=== PATIENT | female | born 1990 | race Caucasian/White ===

== ENCOUNTER 2019-11-18 08:20 | Emergency (ER) | payer OTHER, SELFPAY ==
--- NOTE | 2019-11-18 08:26 | ED.DENTAL ---
HPI - Dental/Oral General Chief complaint: Dental/Oral Stated complaint: dental pain Time Seen by Provider: 11/18/19 08:26 Source: patient Mode of arrival: ambulatory Limitations: no limitations History of Present Illness MD Complaint: tooth pain Teeth map: 1. Duration: constant Severity: moderate Exacerbating factors: nothing Context: history of dental caries, poor dental care and other (known crack in tooth) Associated symptoms: gum swelling Treatment prior to arrival: none Related Data Previous Rx's Medication Instructions Recorded amoxicillin 500 mg PO Q8H 7 Days #21 cap 11/18/19 hydrocodone-acetaminophen 1 tab PO Q6H PRN #10 tab 11/18/19 Allergies Allergy/AdvReac Type Severity Reaction Status Date / Time AZO CRANBERRY URINARY TRACT Allergy Severe THROAT Uncoded 10/23/19 15:58 HEALTH SWELLING pt states no known food & Allergy Unknown Unknown Uncoded 11/18/19 08:33 medi Review of Systems Review of Systems: Constitutional : No Fever, No Chills ENT/Mouth : No swallowing difficulty, no change in voice, positive dental pain, positive jaw pain, positive facial swelling Eyes: No Eye Pain, No Swelling Cardiovascular : No Chest Pain, No SOB Respiratory : No Cough, No Sputum Gastrointestinal : No Nausea, No Vomiting, No Diarrhea Genitourinary : No Dysuria Musculoskeletal : No Myalgias Skin : No rash Neuro : No Weakness, No Numbness, No Headache PMFSH Past Medical History Attestation statement: The following information was validated with the patient. Medical History No known health problems Social History Social History (Updated 11/18/19 @ 08:43 by Sarita Gonzalez DO) Alcohol intake: unknown Smoking Status: Never smoker Use of substances other than those prescribed or required for medical reasons: Unknown Advance Directives: No Advance Directives Information Provided: Yes Physical Exam Vital Signs: Vital Signs: Vital Signs Temp Pulse Resp BP Pulse Ox 11/18/19 08:30 98.6 F 98 18 137/87 97 Body Mass Index 36.1 Appearance: Alert. Oriented X3. No acute distress. Eyes: Pupils equal, round and reactive to light. ENT: Pharynx normal. right lower molar cracked with partial filling, small fluctuant area on near gums, has no submandibular or sublingual swelling, no airway issues Neck: Normal inspection. Neck supple. CVS: Normal heart rate and rhythm. Pulses normal. Respiratory: No respiratory distress. Breath sounds normal. Abdomen: Soft and nontender. Skin: Skin warm and dry. Normal skin color. Normal skin turgor. Extremities: No lower extremity edema. No calf ttp Neuro: Oriented X 3. No motor deficit. No sensory deficit. MDM - Dental/Oral MDM Narrative Medical decision making narrative: 29 yo female with cracked lower molar - small fluctuant area, no concern for deeper infection, will refer to dentist and start on antibiotics and pain medications Discharge Plan Discharge Clinical Impression: Dental caries, Dental abscess Patient Disposition: Home, Self-Care Instructions: Dental Abscess (ED) Prescriptions: New hydrocodone-acetaminophen 5-325 mg tablet 1 tab PO Q6H PRN (Reason: pain) Qty: 10 RF: 0 amoxicillin 500 mg capsule 500 mg PO Q8H 7 Days Qty: 21 RF: 0 Referrals: Jody Ly MD [Primary Care Provider] - 2 days (if not better you should also see your dentist) Stand Alone Forms: Work/School Release
[2019-11-18 08:30] VITALS: BP 137/87; PULSE 98; RESP 18; TEMP 37; O2SAT 97; BMI 36.1
[2019-11-18] MEDS: HYDROcodone Bit/Acetam 5/325 TABLET 1 TAB PO (08:43)
[2019-11-18] MEDS: Amoxicillin 500 MG CAPSULE PO (08:44)
== END 2019-11-18 08:49 | disposition home or self-care (01) ==
PROVIDERS: Emergency Provider Emergency Medicine; PCP Internal Medicine
DX: K02.9 Dental caries, unspecified (principal); K04.7 Periapical abscess without sinus
CPT/HCPCS: 99283; 99284

== ENCOUNTER 2019-11-20 00:44 | Emergency (ER) | payer OTHER, SELFPAY ==
[2019-11-20 00:48] VITALS: BP 129/79; PULSE 77; RESP 16; TEMP 37.8; O2SAT 98; BMI 36.1
--- NOTE | 2019-11-20 01:18 | PC.NURSE ---
MD at bedside applying temporary filling.
--- NOTE | 2019-11-20 01:23 | ED.DENTAL ---
HPI - Dental/Oral General Chief complaint: Dental/Oral Stated complaint: DENTAL PAIN Time Seen by Provider: 11/20/19 01:22 Source: patient Mode of arrival: ambulatory Limitations: no limitations History of Present Illness HPI Narrative: patient with fracture tooth with deep cavity right lower 1st molar for last 1 week seen here before giving the pain medication antibiotic seen the dentist plan to get the root canal done comes here for increased pain MD Complaint: tooth pain Location: Tooth # (30) Related Data Previous Rx's Medication Instructions Recorded amoxicillin 500 mg PO Q8H 7 Days #21 cap 11/18/19 hydrocodone-acetaminophen 1 tab PO Q6H PRN #10 tab 11/18/19 oxycodone 5 mg PO Q6H PRN #20 tab 11/20/19 Allergies Allergy/AdvReac Type Severity Reaction Status Date / Time AZO CRANBERRY URINARY TRACT Allergy Severe THROAT Uncoded 10/23/19 15:58 HEALTH SWELLING pt states no known food & Allergy Unknown Unknown Uncoded 11/18/19 08:33 medi Review of Systems Review of Systems: REVIEW OF SYSTEMS: Pertinent positives and negatives are stated above in the history. GEN: no fevers, chills, fatigue HEENT: no nasal congestion, sore throat, ear pain NEURO: no headache, dizziness, focal weakness PULM: no cough, shortness of breath CV: no chest pain, palpitations, LE edema ABD: no abdominal pain, nausea, vomiting, diarrhea : no dysuria, urgency, frequency SKIN: no rash ROS otherwise negative x 10 PMFSH Past Medical History Medical History No known health problems Surgical History History of cholecystectomy History of tubal ligation Social History Social History Alcohol intake: unknown Smoking Status: Never smoker Advance Directives: No Advance Directives Information Provided: No Physical Exam Vital Signs: Vital Signs: Vital Signs Temp Pulse Resp BP Pulse Ox 11/20/19 01:37 76 16 128/83 11/20/19 00:48 100.0 F 77 16 129/79 98 Body Mass Index 36.1 Appearance: Alert. Oriented X3. No acute distress. Eyes: Pupils equal, round and reactive to light. ENT: Pharynx normal. deep cavity right 1st lower molar sensitive to touch no soft tissue swelling Neck: Normal inspection. Neck supple. CVS: Normal heart rate and rhythm. Pulses normal. Respiratory: No respiratory distress. Breath sounds normal. Abdomen: Soft and nontender. Skin: Skin warm and dry. Normal skin color. Normal skin turgor. Extremities: No lower extremity edema. Good range of movement Neuro: Oriented X 3. No motor deficit. No sensory deficit. Course Course Course Narrative: temporary dental filling was done using tempax powder with partial relief Discharge Plan Discharge Clinical Impression: Dental caries Patient Disposition: Home, Self-Care Instructions: Toothache (ED) Additional Instructions: take antibiotic and pain medicine as prescribed follow-up with dentist do not eat from the right side Prescriptions: New oxycodone 5 mg tablet 5 mg PO Q6H PRN (Reason: pain) Qty: 20 RF: 0 No Action hydrocodone-acetaminophen 5-325 mg tablet 1 tab PO Q6H PRN (Reason: pain) Qty: 10 RF: 0 amoxicillin 500 mg capsule 500 mg PO Q8H 7 Days Qty: 21 RF: 0
[2019-11-20] MEDS: Ketorolac Tromethamine 60 MG/2 ML VIAL IM (01:34)
--- NOTE | 2019-11-20 01:36 | PC.NURSE ---
Pt medicated with Toradol for 10/10 pain to right lower jaw. VSS. Pt provided with DC paperwork.
[2019-11-20 01:37] VITALS: BP 128/83; PULSE 76; RESP 16
--- NOTE | 2019-11-20 01:41 | PC.NURSE ---
Pt medicated with Toradol per EMAR and provided with hot packs per request.
== END 2019-11-20 01:43 | disposition home or self-care (01) ==
PROVIDERS: Emergency Provider Internal Medicine; PCP Internal Medicine
DX: K02.9 Dental caries, unspecified (principal); K08.89 Other specified disorders of teeth and supporting structures
CPT/HCPCS: 96372; 99283; 99284; J1885

== ENCOUNTER 2020-03-10 16:30 | Outpatient (REF) | payer OTHER, SELFPAY ==
--- NOTE | 2020-03-10 16:34 | US_ITS ---
EXAMINATION: US THYROID CLINICAL INFORMATION: Nontoxic goiter, unspecified COMPARISON: None TECHNIQUE: Linear transducer grayscale and color Doppler examination with attention to the region of the thyroid. FINDINGS: SIZE: Measurements of the thyroid lobes and nodules are given in sagittal, anteroposterior and transverse dimensions respectively. Right Thyroid Lobe: 7.1 x 2.8 x 3.0 cm, volume 30.8 mL. Parenchyma: The gland echotexture is heterogeneous. Thyroid vascularity is normal. Left Thyroid Lobe: 7.1 x 2.1 x 2.6 cm, volume 19.8 mL. Parenchyma: The gland echotexture is heterogeneous. Thyroid vascularity is normal. Isthmus: 0.9 cm in maximum AP dimension. No focal thyroid nodule is seen. NODES: In the region of the thyroid isthmus there is a lymph node identified, with a vascular stalk visualized. This node measures 1.1 x 0.4 x 0.8 cm. US/US thyroid IMPRESSION: Enlarged and heterogeneous thyroid gland. No discrete thyroid nodule. ACR TI-RADS RECOMMENDATIONS: No further follow up. * TR1 (0 point) and TR 2 (2 points): No FNA or follow up * TR3 (3 points): FNA if more than or equal to 2.5 cm in maximum dimension, follow up in 1, 3 and 5 years if 1.5 to 2.4 cm in maximum dimension. * TR 4 (4-6 points): FNA if more than or equal to 1.5 cm in maximum dimension, follow up in 1, 2, 3 and 5 years if 1 to 1.4 cm in maximum dimension. * TR 5 (more than or equal to 7 points): FNA if more than or equal to 1 cm in maximum dimension, follow up every year for 5 years if 0.5 to 0.9 cm in maximum dimension. TR3, TR4 or TR5 nodules that are below the size threshold for follow up receive no follow up.
== END 2020-03-10 16:31 | disposition home or self-care (01) ==
LOC: HO.US 16:30
PROVIDERS: PCP Internal Medicine; Visit Provider Internal Medicine
DX: E04.9 Nontoxic goiter, unspecified (principal)
CPT/HCPCS: 76536

== ENCOUNTER 2020-03-17 15:39 | Outpatient (REF) | payer OTHER, SELFPAY ==
[2020-03-17 17:49] LABS: Free T4 (Free Thyroxine) 0.91 ng/dL (0.71-1.85); Thyroid Stimulating Hormone 1.03 uIU/mL (0.32-4.0); Vitamin D 25-OH Total 13.4 ng/mL (>30)
[2020-03-18 04:07] LABS: Triiodothyronine T3 Total 99 ng/dL (76-181)
[2020-03-18 05:18] LABS: Thyroglobulin Antibodies >1000 IU/mL (< or = 1)
[2020-03-18 12:27] LABS: Thyroid Peroxidase Antibodies >900 IU/mL (<9)
== END 2020-03-17 15:40 | disposition home or self-care (01) ==
LOC: HO.LAB 15:39
PROVIDERS: PCP Internal Medicine; Visit Provider Internal Medicine
DX: E04.9 Nontoxic goiter, unspecified (principal); E06.3 Autoimmune thyroiditis; K21.9 Gastro-esophageal reflux disease without esophagitis; E55.9 Vitamin D deficiency, unspecified; Z88.1 Allergy status to other antibiotic agents; Z91.018 Allergy to other foods
CPT/HCPCS: 36415; 82306; 84439; 84443; 84480; 86376; 86800; 99202

== ENCOUNTER 2020-05-09 19:39 | Emergency (ER) | payer OTHER, SELFPAY ==
[2020-05-09 20:22] VITALS: BP 119/75; PULSE 98; RESP 18; TEMP 36.6; O2SAT 98; BMI 36.3
--- NOTE | 2020-05-09 21:19 | ED_ITS ---
HPI - Abdominal Pain General Chief Complaint: Abdominal Pain Stated Complaint: abd pain Source: patient Mode of arrival: ambulatory Limitations: no limitations History of Present Illness HPI narrative: Patient presents to ED for epigastric abdominal pain with acid burning sensation. Also states vomiting and diarrhea beginning today. Patient states no chest pain or shortness of breath. Patient states no fever or chills MD elicited complaint: abdominal pain Related Data Previous Rx's Medication Instructions Recorded omeprazole 20 mg capsule,delayed 20 mg PO DAILY 90 Days #90 cap 02/10/20 release sumatriptan succinate 25 mg tablet 25 mg PO Q2-4H PRN 30 Days #9 tab 03/06/20 cholecalciferol (vitamin D3) 1,250 1,250 mcg PO QWEEK 56 Days #8 cap 03/18/20 mcg (50,000 unit) capsule cholecalciferol (vitamin D3) 50 50 mcg PO DAILY 30 Days #30 cap 03/18/20 mcg (2,000 unit) capsule dicyclomine 20 mg PO QID 3 Days #12 tab 05/10/20 ondansetron HCl [Zofran] 4 mg PO Q6H PRN 2 Days #8 tab 05/10/20 Allergies Allergy/AdvReac Type Severity Reaction Status Date / Time azithromycin Allergy Mild throat Verified 03/17/20 15:51 swelling AZO CRANBERRY URINARY TRACT Allergy Severe THROAT Uncoded 02/10/20 18:25 HEALTH SWELLING Review of Systems Review of Systems Yes all other systems are reviewed and are negative Constitutional: Reports as per HPI and Reports no additional constitutional complaints Eyes: Reports as per HPI and Reports no additional eye complaints Reports system reviewed and no additional complaints, except as documented and Reports as per HPI Cardiovascular: Reports as per HPI and Reports no additional cardiovascular complaints Respiratory: Reports as per HPI and Reports no additional respiratory complaints Gastrointestinal: Reports as per HPI, Reports no additional gastrointestinal complaints, Reports abdominal pain, Reports diarrhea, Reports nausea and Reports vomiting Genitourinary: Reports no additional female genitourinary complaints and Reports as per HPI Musculoskeletal: Reports no additional musculoskeletal complaints and Reports as per HPI Reports system reviewed and no additional complaints, except as documented and Reports as per HPI Psychiatric: Reports no additional psychiatric complaints and Reports as per HPI Physical Exam Vital Signs: Vital Signs: Last Vital Signs Temp 97.9 F 05/10/20 00:00 Pulse 77 05/10/20 00:00 Resp 18 05/10/20 00:00 BP 124/76 05/10/20 00:00 Pulse Ox 97 05/10/20 00:00 Body Mass Index 36.3 Const: General: cooperative, healthy appearing, comfortable, no acute distress, well developed, alert, awake and Physically active Orientation/consciousness: patient oriented x3 HENMT: Head: Yes normal to inspection, Yes No palpable skull fracture present, Yes normocephalic, Yes atraumatic, No abrasion, No Palacios's sign, No contusion, No cranial bruits, No hematoma, No laceration, No occipital foramen tenderness, No palpable skull fracture, No raccoon eyes, No scalp tenderness and No Temporal artery tenderness present Eyes: General: appearance normal, both eyes and all related structures Neck: Neck: Yes normal visual inspection, Yes full ROM, Yes no lymphadenopathy, Yes no meningeal signs, Yes trachea midline, Yes supple and No tender Chest: Chest palpation & inspection: normal inspection of the chest and normal palpation of entire chest wall Resp: Effort & Inspection: normal respiratory effort and able to speak in complete sentences Auscultation: clear to auscultation bilaterally Cardio: Jugular venous distension: no JVD Heart sounds: S1 normal heart sound present and S2 normal heart sound present GI: Inspection: Yes normal to inspection and No abdominal wall ecchymosis Palpation (GI): Soft to palpation, not firm, Tenderness to palpation present (GI) in the epigastrum; not in the LLQ, not in the RLQ, not in the LUQ, not in the RUQ, not at McBurney's point, not periumbilically, not suprapubicly, Cummings's sign negative, obturator sign negative, psoas sign negative, with no rebound tenderness and Rovsing's sign negative, no guarding and not rigid : General: No CVA tenderness and Yes no CVA tenderness Back/Spine/Pelvis: Back: no CVA tenderness, No CVA tenderness and No back tenderness Skin: General skin exam: no rashes or lesions noted and elasticity normal Neuro: General: patient oriented x3, no meningeal signs and CN's II-XI intact bilaterally Cranial nerves: Yes CN's II-XII intact bilaterally Extrem: General: Yes normal to inspection and Yes full ROM Psych: Appearance: grossly normal, well kempt and not disheveled Course Course Course Narrative: Patient will have labs drawn. Patient given GI cocktail. Reevaluation(s) Reevaluation #1: Patient COVID swab came back negative. Patient labs are normal. Patient states she no longer has any abdominal pain. Patient two episodes of diarrhea during to ED visit. Diagnosis gastroenteritis. Abdomen re-evaluated and negative for any tenderness on palpation. Abdomen was benign. MDM - Abdominal Pain MDM Narrative Medical decision making narrative: Gastroenteritis. GERD Lab Data Result diagrams: 05/09/20 21:31 05/09/20 21:31 Labs: Lab Results 05/09/20 05/09/20 05/09/20 Range/Units 21:31 21:31 21:31 WBC 11.8 H (4.8-10.8) X10*3/uL RBC 4.62 (4.20-5.50) X10*6/uL Hgb 13.2 (12.0-16.0) g/dl Hct 39.4 (37-47) % MCV 85.3 (80-98) fL MCH 28.6 (27.0-33.0) pg MCHC 33.5 (31.0-35.0) g/dl RDW 12.5 (11.0-16.0) % Plt Count 290 (160-400) X10*3/uL MPV 8.8 L (9.4-12.3) fL Immature Gran % (Auto) 0.4 (0.0-0.4) % Neut % (Auto) 69.8 (45-73) % Lymph % (Auto) 19.7 L (20-40) % [place] % (Auto) 5.7 (2-11) % Eos % (Auto) 4.1 H (0-4) % Baso % (Auto) 0.3 (0-2) % Lymph # (Auto) 2.3 (1.2-4.9) X10*3/uL [place] # (Auto) 0.7 (0.1-1.2) X10*3/uL Eos # (Auto) 0.5 H (0.0-0.4) X10*3/uL Baso # (Auto) 0.0 (0.0-0.2) X10*3/uL Abs Immat Gran (auto) 0.05 H (0.00-0.03) X10*3/uL Absolute Neuts (auto) 8.3 (2.0-8.3) X10*3/uL Absolute Nucleated RBC 0.000 (0.0-0.012) X10*3/uL Nucleated RBC % (auto) 0.0 (0.0-0.2) /100WBC PT 11.8 (10.8-13.0) SEC INR 1.0 (0.9-1.1) APTT 33.6 (24.1-38.0) SEC Sodium 139 (135-145) mmol/L Potassium 4.2 (3.3-5.1) mmol/L Chloride 105 (96-108) mmol/L Carbon Dioxide 27 (22-29) mmol/L Anion Gap 11 L (12-20) BUN 10 (9-16) mg/dL Creatinine 0.81 (0.5-1.4) mg/dL Estim Creat Clear Calc 110.0 Estimated GFR > 60 Random Glucose 102 (60-115) mg/dL Calcium 9.5 (8.4-10.2) mg/dL Total Bilirubin 0.2 (0.0-1.0) mg/dL Direct Bilirubin < 0.2 (0.0-0.5) mg/dL AST 17 (5-31) U/L ALT 31 (0-31) U/L Alkaline Phosphatase 54 (39-117) U/L Total Protein 7.5 (6.5-8.0) g/dL Albumin 4.3 (3.5-5.0) g/dL Lipase 23 (8-78) U/L Beta HCG, Quant < 2 mIU/mL Urine Color Urine Appearance Urine pH (5.0-8.0) Ur Specific [place] (1.005-1.025) Urine Protein (NEG-TRACE) MG/DL Urine Glucose (UA) (NEG) MG/DL Urine Ketones (NEG) MG/DL Urine Blood (NEG) Urine Nitrite (NEG) Ur Leukocyte Esterase (NEG) COVID-19 ([facility]O) (Negative) COVID-19 Clin Com 05/09/20 05/09/20 Range/Units 21:49 22:49 WBC (4.8-10.8) X10*3/uL RBC (4.20-5.50) X10*6/uL Hgb (12.0-16.0) g/dl Hct (37-47) % MCV (80-98) fL MCH (27.0-33.0) pg MCHC (31.0-35.0) g/dl RDW (11.0-16.0) % Plt Count (160-400) X10*3/uL MPV (9.4-12.3) fL Immature Gran % (Auto) (0.0-0.4) % Neut % (Auto) (45-73) % Lymph % (Auto) (20-40) % [place] % (Auto) (2-11) % Eos % (Auto) (0-4) % Baso % (Auto) (0-2) % Lymph # (Auto) (1.2-4.9) X10*3/uL [place] # (Auto) (0.1-1.2) X10*3/uL Eos # (Auto) (0.0-0.4) X10*3/uL Baso # (Auto) (0.0-0.2) X10*3/uL Abs Immat Gran (auto) (0.00-0.03) X10*3/uL Absolute Neuts (auto) (2.0-8.3) X10*3/uL Absolute Nucleated RBC (0.0-0.012) X10*3/uL Nucleated RBC % (auto) (0.0-0.2) /100WBC PT (10.8-13.0) SEC INR (0.9-1.1) APTT (24.1-38.0) SEC Sodium (135-145) mmol/L Potassium (3.3-5.1) mmol/L Chloride (96-108) mmol/L Carbon Dioxide (22-29) mmol/L Anion Gap (12-20) BUN (9-16) mg/dL Creatinine (0.5-1.4) mg/dL Estim Creat Clear Calc Estimated GFR Random Glucose (60-115) mg/dL Calcium (8.4-10.2) mg/dL Total Bilirubin (0.0-1.0) mg/dL Direct Bilirubin (0.0-0.5) mg/dL AST (5-31) U/L ALT (0-31) U/L Alkaline Phosphatase (39-117) U/L Total Protein (6.5-8.0) g/dL Albumin (3.5-5.0) g/dL Lipase (8-78) U/L Beta HCG, Quant mIU/mL Urine Color YELLOW Urine Appearance CLEAR Urine pH 5.5 (5.0-8.0) Ur Specific [place] >= 1.030 H (1.005-1.025) Urine Protein NEG (NEG-TRACE) MG/DL Urine Glucose (UA) NEG (NEG) MG/DL Urine Ketones NEG (NEG) MG/DL Urine Blood NEG (NEG) Urine Nitrite NEG (NEG) Ur Leukocyte Esterase NEG (NEG) COVID-19 (CH[facility]STO) Negative (Negative) COVID-19 Clin Com See Note Discharge Plan Discharge Clinical Impression: Gastroenteritis Patient Disposition: Home, Self-Care Instructions: Gastroenteritis (ED), Gastroesophageal Reflux Disease (ED) Additional Instructions: Return to the ED immediately for worsening abdominal pain, blood in stool, fever, chills, nausea, vomiting, weakness, dysuria, hematuria chest pain, shortness of breath, or any other concerning symptoms. Recommend brat diet ( Banana, rice, apple sauce, toast). Continue taking your omeprazole. Prescriptions: New ondansetron HCl [Zofran] 4 mg tablet 4 mg PO Q6H PRN (Reason: nausea and vomiting) 2 Days Qty: 8 RF: 0 dicyclomine 20 mg tablet 20 mg PO QID 3 Days Qty: 12 RF: 0 No Action sumatriptan succinate 25 mg tablet 25 mg PO Q2-4H PRN (Reason: migraine headache) 30 Days Qty: 9 RF: 6 cholecalciferol (vitamin D3) 50 mcg (2,000 unit) capsule 50 mcg PO DAILY 30 Days Qty: 30 RF: 11 cholecalciferol (vitamin D3) 1,250 mcg (50,000 unit) capsule 1,250 mcg PO QWEEK 56 Days Qty: 8 RF: 0 omeprazole 20 mg capsule,delayed release(DR/EC) 20 mg PO DAILY 90 Days Qty: 90 RF: 3 Referrals: Jody Ly MD [Primary Care Provider] - 2 days (Gastroenteritis. COVID swab negative) Stand Alone Forms: Work/School Release Interventions: ED Discharge Assessment Last Done: 05/10/20 00:07 Discharge Date/Time: 05/10/20 00:09 Print Language: Portuguese [facility] Past Medical History Medical History (Updated 05/09/20 @ 23:43 by ALEX Gutierrez) Difficulty swallowing GERD (gastroesophageal reflux disease) Goiter Eric's disease Migraines No known health problems Tonsillitis Vitamin D deficiency Surgical History (Updated 05/09/20 @ 20:23 by Noe Covington) History of cervical cerclage History of cholecystectomy History of tubal ligation Hx of tonsillectomy Family History Family History (Updated 03/17/20 @ 16:12 by Sobeida Funes DO) Father High cholesterol Liver failure Hypertension Lung disease Mother Diabetes Hypertension Cervical cancer Hypothyroidism Sister Lupus anticoagulant disorder Maternal Grandmother CVD (cardiovascular disease) Maternal Grandfather Diabetes CVD (cardiovascular disease) Paternal Uncle Colon cancer Maternal Aunt Graves disease Social History Social History Alcohol intake: never Smoking Status: Never smoker Use of substances other than those prescribed or required for medical reasons: No Advance Directives: No
[2020-05-09 21:27] VITALS: BP 112/69; PULSE 88; RESP 18; TEMP 36.5; O2SAT 98
[2020-05-09 21:37] LABS: MANUAL DIFF FLAG NO
[2020-05-09 21:38] LABS: Basophils Percent Auto 0.3 % (0-2); Eosinophils Absolute Auto 0.5 X10*3/uL (0.0-0.4); Eosinophils Percent Auto 4.1 % (0-4); Hematocrit 39.4 % (37-47); Hemoglobin 13.2 g/dl (12.0-16.0); Imm Gran Abs Auto 0.05 X10*3/uL (0.00-0.03); Imm Gran Pct Auto 0.4 % (0.0-0.4); Lymphocytes Absolute Auto 2.3 X10*3/uL (1.2-4.9); Lymphocytes Percent Auto 19.7 % (20-40); Mean Corpuscular HGB Conc 33.5 g/dl (31.0-35.0); Mean Corpuscular Hemoglobin 28.6 pg (27.0-33.0); Mean Corpuscular Volume 85.3 fL (80-98); Mean Platelet Volume 8.8 fL (9.4-12.3); Monocytes Absolute Auto 0.7 X10*3/uL (0.1-1.2); Monocytes Percent Auto 5.7 % (2-11); Neutrophils Absolute Auto 8.3 X10*3/uL (2.0-8.3); Neutrophils Percent Auto 69.8 % (45-73); Platelet Count 290 X10*3/uL (160-400); Red Blood Count 4.62 X10*6/uL (4.20-5.50); Red Cell Distribution Width 12.5 % (11.0-16.0); White Blood Count 11.8 X10*3/uL (4.8-10.8)
[2020-05-09 21:43] LABS: Prothrombin Time 11.8 SEC (10.8-13.0)
[2020-05-09 21:46] LABS: Partial Thromboplastin Time 33.6 SEC (24.1-38.0)
[2020-05-09 22:02] LABS: Alanine Aminotransferase 31 U/L (0-31); Albumin Level 4.3 g/dL (3.5-5.0); Alkaline Phosphatase 54 U/L (39-117); Anion Gap 11 (12-20); Aspartate Amino Transferase 17 U/L (5-31); Bilirubin Direct < 0.2 mg/dL (0.0-0.5); Bilirubin Total 0.2 mg/dL (0.0-1.0); Blood Urea Nitrogen 10 mg/dL (9-16); Calcium 9.5 mg/dL (8.4-10.2); Carbon Dioxide 27 mmol/L (22-29); Chloride 105 mmol/L (96-108); Estimated Glomerular Filt Rate > 60; Glucose Random 102 mg/dL (60-115); Lipase 23 U/L (8-78); Potassium 4.2 mmol/L (3.3-5.1); Sodium 139 mmol/L (135-145); Total Protein 7.5 g/dL (6.5-8.0)
[2020-05-09] MEDS: Famotidine/PF 20 MG/2 ML VIAL IVPUSH (22:04)
[2020-05-09] MEDS: 0.9 % Sodium Chloride 1,000 ML 999 ML IV (22:04)
[2020-05-09] MEDS: PHENobarb/Hyoscy/Atropine/Scop 10 ML ELIXIR PO (22:05)
[2020-05-09] MEDS: Lidocaine HCl Viscous 2 % 15 ML SOLUTION MUCOUS MEM (22:05)
[2020-05-09 22:10] LABS: HCG Quantitative < 2 mIU/mL
[2020-05-09 22:15] LABS: COVID-19 Test Negative (Negative)
[2020-05-09 22:54] LABS: Appearance Urine CLEAR; Color Urine YELLOW; Glucose Urine UA NEG (NEG); Leukocyte Esterase Urine NEG (NEG); Nitrite Urine NEG (NEG); PH 5.5 (5.0-8.0); Specific Gravity - Urine >= 1.030 (1.005-1.025); Urine Blood NEG (NEG); Urine Ketones NEG (NEG); Urine Protein NEG (NEG-TRACE)
[2020-05-10] VITALS: BP 124/76; PULSE 77; RESP 18; TEMP 36.6; O2SAT 97
== END 2020-05-10 00:09 | disposition home or self-care (01) ==
PROVIDERS: Physician Assistant; Emergency Provider Internal Medicine; PCP Internal Medicine
DX: K52.9 Noninfective gastroenteritis and colitis, unspecified (principal); R10.13 Epigastric pain; Z79.899 Other long term (current) drug therapy; Z20.822 Contact with and (suspected) exposure to COVID-19
CPT/HCPCS: 36415; 80053; 80076; 81003; 82248; 83690; 84702; 85025; 85610; 85730; 87635; 96365; 96375; 99284

== ENCOUNTER → 2020-05-17 07:38 | Outpatient (BNVA) | payer OTHER, SELFPAY | PROVIDERS: PCP Internal Medicine; Visit Provider Internal Medicine ==

== ENCOUNTER → 2020-08-18 08:28 | Outpatient (BNVA) | payer OTHER, SELFPAY | PROVIDERS: PCP Internal Medicine; Visit Provider Internal Medicine ==

== ENCOUNTER 2020-09-13 13:03 | Outpatient (REF) | payer OTHER, SELFPAY ==
[2020-09-13 15:01] LABS: Free T4 (Free Thyroxine) 0.88 ng/dL (0.71-1.85); Thyroid Stimulating Hormone 0.56 uIU/mL (0.32-4.0); Vitamin D 25-OH Total 23.5 ng/mL (>30)
== END 2020-09-13 13:04 | disposition home or self-care (01) ==
LOC: HO.LAB 13:03
PROVIDERS: PCP Internal Medicine; Visit Provider Internal Medicine
DX: E04.9 Nontoxic goiter, unspecified (principal); E06.3 Autoimmune thyroiditis; E55.9 Vitamin D deficiency, unspecified
CPT/HCPCS: 36415; 82306; 84439; 84443

== ENCOUNTER 2021-06-26 00:28 | Emergency (ER) | payer OTHER, SELFPAY ==
[2021-06-26 00:45] VITALS: BP 142/91; PULSE 105; RESP 20; TEMP 36.1; O2SAT 100; BMI 36.1
[2021-06-26] MEDS: Ibuprofen 600 MG TABLET PO (00:51)
--- NOTE | 2021-06-26 01:46 | ED.DENTAL ---
HPI - Dental/Oral General Chief complaint: Dental/Oral Stated complaint: L side molar pain, infected? Time Seen by Provider: 06/26/21 01:46 Source: patient Mode of arrival: ambulatory Limitations: no limitations History of Present Illness HPI Narrative: patient history of dental caries stable otherwise noticed sharp pain started yesterday night is sensitive to cold no fever no chills no sinus pain Related Data Previous Rx's Medication Instructions Recorded cholecalciferol (vitamin D3) 50 50 mcg PO DAILY 30 Days #30 cap 03/18/20 mcg (2,000 unit) capsule topiramate 25 mg tablet 25 mg PO BEDTIME 90 Days #90 tab 12/10/20 guaifenesin 600 mg tablet, 600 mg PO BID #14 tab 02/01/21 extended release 12 hr (Mucinex) omeprazole 20 mg capsule,delayed 20 mg PO DAILY #30 cap 02/01/21 release albuterol sulfate 90 mcg/actuation 1 inh INHALATION Q4-6H PRN 30 Days 03/07/21 breath activated powder inhaler #1 ea (ProAir RespiClick) amoxicillin 875 mg-potassium 1 tab PO BID #20 tab 06/26/21 clavulanate 125 mg tablet oxycodone-acetaminophen 5 mg-325 1 tab PO Q6H PRN #20 tab 06/26/21 mg tablet (Percocet) Allergies Allergy/AdvReac Type Severity Reaction Status Date / Time azithromycin Allergy Mild throat Verified 06/26/21 00:49 swelling AZO CRANBERRY URINARY TRACT Allergy Severe THROAT Uncoded 06/26/21 00:49 HEALTH SWELLING Review of Systems Review of Systems: Yes all other systems are reviewed and are negative PMFSH Past Medical History Medical History Difficulty swallowing GERD (gastroesophageal reflux disease) Goiter Eric's disease Eric's disease Migraines No known health problems Tonsillitis Vitamin D deficiency Surgical History History of cervical cerclage History of cholecystectomy History of tubal ligation Hx of tonsillectomy Family History Family History Father High cholesterol Liver failure Hypertension Lung disease Mother Diabetes Hypertension Cervical cancer Hypothyroidism Sister Lupus anticoagulant disorder Maternal Grandmother CVD (cardiovascular disease) Maternal Grandfather Diabetes CVD (cardiovascular disease) Paternal Uncle Colon cancer Maternal Aunt Graves disease Social History Social History Housing: Apartment Alcohol intake: never Patient Tobacco Use Status: Never used Tobacco e-Cigarette/Vaping Use: Never Used Second Hand Smoke Exposure: No Advance Directives: No Advance Directives Information Provided: Yes service: No Current occupational status: employed Current occupational exposures/hazards: No Physical Exam Vital Signs: Vital Signs: Last Vital Signs Temp 96.9 F 06/26/21 00:45 Pulse 105 H 06/26/21 00:45 Resp 20 06/26/21 00:45 BP 142/91 H 06/26/21 00:45 Pulse Ox 100 06/26/21 00:45 BMI result Body Mass Index 36.1 Const: General: well developed and in distress Orientation/consciousness: patient oriented x3 HEENT: Ears: hearing grossly normal bilaterally and TM's normal bilaterally Face and sinus: Yes normal facial exam and Yes sinuses nontender Mouth: Normal oral and palatal mucosa present Teeth image: 1. tender tooth 18 to percussion no gum swelling no pus discharge no clear-cut cavity seen patient has fillings Throat: Yes posterior oropharynx normal Resp: Effort & Inspection: normal respiratory effort Auscultation: clear to auscultation bilaterally Neuro: General: patient oriented x3 Discharge Plan Discharge Clinical Impression: Dental caries Patient Disposition: Home, Self-Care Instructions: Toothache (ED) Additional Instructions: take antibiotic and pain medicine as prescribed and follow up with dentist Prescriptions: New oxycodone-acetaminophen [Percocet] 5-325 mg tablet 1 tab PO Q6H PRN (Reason: pain) Qty: 20 0RF amoxicillin-pot clavulanate 875-125 mg tablet 1 tab PO BID Qty: 20 0RF No Action cholecalciferol (vitamin D3) 50 mcg (2,000 unit) capsule 50 mcg PO DAILY 30 Days Qty: 30 11RF topiramate 25 mg tablet 25 mg PO BEDTIME 90 Days Qty: 90 0RF ProAir RespiClick 90 mcg/actuation aerosol powdr breath activated 1 inh inhalation Q4-6H PRN (Reason: shortness of breath or wheezing) 30 Days Qty: 1 0RF guaifenesin [Mucinex] 600 mg tablet extended release 12hr 600 mg PO BID Qty: 14 0RF omeprazole 20 mg capsule,delayed release(DR/EC) 20 mg PO DAILY Qty: 30 1RF
[2021-06-26 01:55] VITALS: BP 132/68; PULSE 98; RESP 16; TEMP 36.1; O2SAT 98
[2021-06-26] MEDS: oxyCODONE HCl Immed Release 5 MG TABLET 10 MG PO (01:59)
[2021-06-26] MEDS: Amoxicillin/Potassium Clav 875 MG TABLET PO (02:00)
== END 2021-06-26 02:05 | disposition home or self-care (01) ==
PROVIDERS: Emergency Provider Internal Medicine; PCP Internal Medicine
DX: K02.9 Dental caries, unspecified (principal)
CPT/HCPCS: 99283; 99284

== ENCOUNTER 2021-08-28 00:14 | Emergency (ER) | payer OTHER, SELFPAY ==
[2021-08-28 00:26] VITALS: BP 123/88; PULSE 98; RESP 18; TEMP 36.9; O2SAT 96; BMI 41.7
--- NOTE | 2021-08-28 01:25 | ED_ITS ---
HPI - Dental/Oral General Chief complaint: Dental/Oral Stated complaint: dental pain causing ear pain Time Seen by Provider: 08/28/21 01:24 Source: patient and family Mode of arrival: ambulatory Limitations: no limitations History of Present Illness HPI Narrative: Left-sided facial pain due to dental pain. Patient was seen and evaluated by dentist yesterday and patient was referred to [place] for extraction of the left lower wisdom tooth and also another tooth need filling. Patient is complaining of left-sided facial pain and left ear pain. Related Data Previous Rx's Medication Instructions Recorded cholecalciferol (vitamin D3) 50 50 mcg PO DAILY 30 days #30 caps 03/18/20 mcg (2,000 unit) capsule topiramate 25 mg tablet 25 mg PO BEDTIME 90 days #90 tabs 12/10/20 guaifenesin 600 mg tablet, 600 mg PO BID #14 tabs 02/01/21 extended release 12 hr (Mucinex) omeprazole 20 mg capsule,delayed 20 mg PO DAILY #30 caps 02/01/21 release albuterol sulfate 90 mcg/actuation 1 inh inhalation Q4-6H PRN 03/07/21 breath activated powder inhaler shortness of breath or wheezing 30 (ProAir RespiClick) days #1 ea amoxicillin 875 mg-potassium 1 tab PO BID #20 tabs 06/26/21 clavulanate 125 mg tablet oxycodone-acetaminophen 5 mg-325 1 tab PO Q6H PRN pain #20 tabs 06/26/21 mg tablet (Percocet) amoxicillin 500 mg tablet 500 mg PO BID #14 tabs 08/28/21 oxycodone 5 mg tablet 5 mg PO BID PRN pain #8 tabs 08/28/21 Allergies Allergy/AdvReac Type Severity Reaction Status Date / Time azithromycin Allergy Mild throat Verified 06/26/21 00:49 swelling AZO CRANBERRY URINARY TRACT Allergy Severe THROAT Uncoded 06/26/21 00:49 HEALTH SWELLING Review of Systems Review of Systems: All other systems are reviewed and are negative Constitutional: Reports as per HPI and Reports no additional constitutional complaints Eyes: Reports as per HPI and Reports no additional eye complaints Reports system reviewed and no additional complaints, except as documented Cardiovascular: Reports as per HPI and Reports no additional cardiovascular complaints Respiratory: Reports as per HPI and Reports no additional respiratory complaints Gastrointestinal: Reports as per HPI and Reports no additional gastrointestinal complaints Genitourinary: Reports no additional female genitourinary complaints Musculoskeletal: Reports no additional musculoskeletal complaints Skin/Breast: Reports system reviewed and no additional complaints, except as docu Psychiatric: Reports no additional psychiatric complaints Endocrine: Reports no additional endocrine complaints Hematologic/Lymphatic: Reports no additional hematologic/lymphatic complaints Allergic/Immunologic: Reports no additional allergic/immunologic complaints Reports system reviewed and no additional complaints, except as documented and Reports Abnormal speech present [facility] Past Medical History Medical History Difficulty swallowing GERD (gastroesophageal reflux disease) Goiter Eric's disease Eric's disease Migraines No known health problems Tonsillitis Vitamin D deficiency Surgical History History of cervical cerclage History of cholecystectomy History of tubal ligation Hx of tonsillectomy Family History Family History Father High cholesterol Liver failure Hypertension Lung disease Mother Diabetes Hypertension Cervical cancer Hypothyroidism Sister Lupus anticoagulant disorder Maternal Grandmother CVD (cardiovascular disease) Maternal Grandfather Diabetes CVD (cardiovascular disease) Paternal Uncle Colon cancer Maternal Aunt Graves disease Social History Social History Housing: Apartment Alcohol intake: never Patient Tobacco Use Status: Never used Tobacco e-Cigarette/Vaping Use: Never Used Second Hand Smoke Exposure: No service: No Current occupational status: employed Current occupational exposures/hazards: No Physical Exam Vital Signs: Vital Signs: Last Vital Signs Temp 98.4 F 08/28/21 00:26 Pulse 98 08/28/21 00:26 Resp 18 08/28/21 00:26 BP 123/88 08/28/21 00:26 Pulse Ox 96 08/28/21 00:26 O2 Del Method 08/28/21 00:26 BMI result Body Mass Index 41.7 Vital signs have been reviewed as appeared to be correct. Blood pressure normal. Heart rate normal. Respiration rate normal. Temperature normal. Oxygen saturation normal. Appearance: Alert. Oriented X3. No acute distress. Head: Normal external exam. Normocephalic. Atraumatic. No Palacios signs noted. No raccoon eyes noted Eyes: PERRLA. EOMI. Conjunctiva and sclera normal. Eyelids normal. ENT: TM's Normal. Pharynx normal. Uvula midline. Moist mucous membranes. No trismus noted. No drooling noted. No muffled voice noted. Neck: Normal inspection. Neck supple. FROM. No adenopathy. Thyroid Normal. No meningeal signs. No neck mass noted. CVS: Normal heart rate and rhythm. Heart sound normal. No murmurs noted. Pulses normal throughout. Respiratory: No respiratory distress. Painless inspiration. Breath sounds normal. No wheezes/rales/rhonchi noted. Chest nontender. No accessory muscle usage noted or decreased air movement noted. Abdomen: Soft and nontender. Bowel sounds normal in all 4 quadrants. No distention noted. No organomegaly noted. No visible injury noted. Back: No CVA tenderness. Full range of motion noted. Skin: Skin warm and dry. Normal skin color. Normal skin turgor. No rashes/lesions/lacerations noted. Extremities: No lower extremity edema. Extremities exhibit normal range of motion. Extremities nontender. Neuro: Oriented X 3. Cranial nerve exam: II-XII are grossly intact No motor deficit. No sensory deficit. Reflexes normal. HEENT: Teeth image: 1. Tender to touch with swelling of the gum around , no fluctuation, no discharge. 2. Tender to with cavity, mild swelling of the gum around, no fluctuation, no drainage. Course Course Course Narrative: Facial pain due to dental infection will start the patient on amoxicillin and prescribed oxycodone, patient was instructed to follow-up with a dentist in [place] for possible extraction of the wisdom tooth. Discharge Plan Discharge Clinical Impression: Toothache, Dental caries Patient Disposition: Home, Self-Care Instructions: Toothache (ED) Additional Instructions: Follow-up with your dentist as scheduled this week. Prescriptions: New amoxicillin 500 mg tablet 500 mg PO BID Qty: 14 0RF oxycodone 5 mg tablet 5 mg PO BID PRN (Reason: pain) Qty: 8 0RF Rx Instructions: Partial Fill upon patient request. No Action cholecalciferol (vitamin D3) 50 mcg (2,000 unit) capsule 50 mcg PO DAILY 30 Days Qty: 30 11RF topiramate 25 mg tablet 25 mg PO BEDTIME 90 Days Qty: 90 0RF ProAir RespiClick 90 mcg/actuation aerosol powdr breath activated 1 inh inhalation Q4-6H PRN (Reason: shortness of breath or wheezing) 30 Days Qty: 1 0RF oxycodone-acetaminophen [Percocet] 5-325 mg tablet 1 tab PO Q6H PRN (Reason: pain) Qty: 20 0RF amoxicillin-pot clavulanate 875-125 mg tablet 1 tab PO BID Qty: 20 0RF guaifenesin [Mucinex] 600 mg tablet extended release 12hr 600 mg PO BID Qty: 14 0RF omeprazole 20 mg capsule,delayed release(DR/EC) 20 mg PO DAILY Qty: 30 1RF Referrals: Jody Ly MD [Primary Care Provider] -
[2021-08-28] MEDS: Ibuprofen 600 MG TABLET PO (01:38)
[2021-08-28] MEDS: oxyCODONE HCl Immed Release 5 MG TABLET PO (01:39)
[2021-08-28] MEDS: Amoxicillin 500 MG CAPSULE PO (01:39)
== END 2021-08-28 01:49 | disposition home or self-care (01) ==
PROVIDERS: Emergency Provider Emergency Medicine; PCP Internal Medicine
DX: K02.9 Dental caries, unspecified (principal); Z79.899 Other long term (current) drug therapy
CPT/HCPCS: 99283

== ENCOUNTER 2021-09-01 09:56 | Outpatient (REF) | payer OTHER, SELFPAY ==
[2021-09-01 10:08] LABS: MANUAL DIFF FLAG NO
[2021-09-01 10:48] LABS: Basophils Percent Auto 0.5 % (0-2); Eosinophils Absolute Auto 0.4 X10*3/uL (0.0-0.4); Eosinophils Percent Auto 4.8 % (0-4); Hemoglobin 12.8 g/dl (12.0-16.0); Imm Gran Abs Auto 0.05 X10*3/uL (0.00-0.03); Imm Gran Pct Auto 0.7 % (0.0-0.4); Lymphocytes Absolute Auto 1.9 X10*3/uL (1.2-4.9); Lymphocytes Percent Auto 24.8 % (20-40); Mean Corpuscular HGB Conc 33.7 g/dl (31.0-35.0); Mean Corpuscular Hemoglobin 28.9 pg (27.0-33.0); Mean Corpuscular Volume 85.8 fL (80.0-98.0); Mean Platelet Volume 9.1 fL (9.4-12.3); Monocytes Absolute Auto 0.5 X10*3/uL (0.1-1.2); Monocytes Percent Auto 6.4 % (2-11); Neutrophils Absolute Auto 4.8 x10*3/uL (2.0-8.3); Neutrophils Percent Auto 62.8 % (45-73); Platelet Count 246 X10*3/uL (160-400); Red Blood Count 4.43 X10*6/uL (4.20-5.50); Red Cell Distribution Width 12.4 % (11.0-16.0); White Blood Count 7.6 X10*3/uL (4.8-10.8)
[2021-09-01 11:25] LABS: Alanine Aminotransferase 59 U/L (0-31); Albumin Level 4.1 g/dL (3.5-5.0); Alkaline Phosphatase 51 U/L (39-117); Anion Gap 11 (12-20); Aspartate Amino Transferase 36 U/L (5-31); Bilirubin Total 0.3 mg/dL (0.0-1.0); Blood Urea Nitrogen 5 mg/dL (9-16); Carbon Dioxide 23 mmol/L (22-29); Chloride 107 mmol/L (96-108); Estimated Glomerular Filt Rate > 60; Glucose Random 87 mg/dL (60-115); Potassium 4.2 mmol/L (3.3-5.1); Sodium 137 mmol/L (135-145); Total Protein 7.1 g/dL (6.5-8.0)
[2021-09-01 11:49] LABS: Free T4 (Free Thyroxine) 0.87 ng/dL (0.71-1.85); Thyroid Stimulating Hormone 1.86 uIU/mL (0.32-4.0)
[2021-09-01 11:55] LABS: Free T4 (Free Thyroxine) 0.89 ng/dL (0.71-1.85); Thyroid Stimulating Hormone 1.92 uIU/mL (0.32-4.0)
== END 2021-09-01 09:57 | disposition home or self-care (01) ==
LOC: HO.LAB 09:56
PROVIDERS: Absent Provider Internal Medicine; PCP Internal Medicine; Visit Provider Nurse Practitioner Family
DX: E06.3 Autoimmune thyroiditis (principal); D64.9 Anemia, unspecified; R13.10 Dysphagia, unspecified; R74.01 Elevation of levels of liver transaminase levels
CPT/HCPCS: 36415; 80053; 84439; 84443; 85025

== ENCOUNTER 2021-09-06 12:22 | Outpatient (REF) | payer OTHER, SELFPAY ==
[2021-09-06 14:02] LABS: Appearance Urine HAZY; Color Urine YELLOW; Glucose Urine UA NEG (NEG); Leukocyte Esterase Urine 1+ (NEG); Nitrite Urine POS (NEG); UACC Culture Trigger YES; Urine Blood 2+ (NEG); Urine Ketones NEG (NEG); Urine Protein NEG (NEG-TRACE)
[2021-09-06 14:14] LABS: Bacteria Urine 4+ /LPF; Squamous Epithelial Cell Urine 2+ /LPF
== END 2021-09-06 12:23 | disposition home or self-care (01) ==
LOC: HO.LAB 12:22
PROVIDERS: PCP Internal Medicine; Visit Provider Internal Medicine
DX: R30.0 Dysuria (principal)
CPT/HCPCS: 81001; 87086

== ENCOUNTER → 2021-10-12 15:49 | Outpatient (BNVA) | payer OTHER, SELFPAY | PROVIDERS: PCP Internal Medicine; Visit Provider Physician Assistant Surgical | DX: E66.01 Morbid (severe) obesity due to excess calories (principal); Z68.41 Body mass index [BMI] 40.0-44.9, adult | CPT/HCPCS: 99212 ==

== ENCOUNTER → 2021-10-17 15:49 | Outpatient (BNVA) | payer OTHER, SELFPAY | PROVIDERS: PCP Internal Medicine; Visit Provider Physician Assistant | DX: Z11.0 Encounter for screening for intestinal infectious diseases (principal) | CPT/HCPCS: 99211 ==

== ENCOUNTER 2021-10-18 16:38 | Outpatient (REF) | payer OTHER, SELFPAY ==
[2021-10-20 15:36] LABS: H Pylori Breath Test Negative (Negative)
== END 2021-10-18 16:39 | disposition home or self-care (01) ==
LOC: HO.LNP 16:38
PROVIDERS: Visit Provider Physician Assistant Surgical
DX: E66.01 Morbid (severe) obesity due to excess calories (principal)
CPT/HCPCS: 83013

== ENCOUNTER 2021-10-20 09:38 | Outpatient (REF) | payer OTHER, SELFPAY ==
--- NOTE | 2021-10-20 09:46 | ECG_ITS ---
Test Reason : OBESITY Blood Pressure : / mmHG Vent. Rate : 079 BPM Atrial Rate : 079 BPM P-R Int : 122 ms QRS Dur : 092 ms QT Int : 372 ms P-R-T Axes : 009 014 014 degrees QTc Int : 426 ms Normal sinus rhythm Normal ECG No previous ECGs available Referred By: Norm Perez Electronically Signed By:JOHN ZHENG
[2021-10-20 10:28] LABS: Estimated Average Glucose 94 mg/dL; Hemoglobin A1c % 4.9 %
[2021-10-20 10:44] LABS: C Reactive Protein 0.74 mg/dL (< or = 0.50); Cholesterol 177 mg/dL; HDL Cholesterol 32 mg/dL; Iron 42 mcg/dL (30-160); LDL Cholesterol Calculated 125 mg/dl; Percent Iron Saturation 12 % (15-50); Total Iron Binding Capacity 339 mcg/dL (228-428); Triglycerides 101 mg/dL; Unsaturated Iron Binding 297 ug/dL
[2021-10-20 11:16] LABS: Ferritin 142 ng/mL (10-122); Vitamin D 25-OH Total 30.5 ng/mL (>30)
[2021-10-20 11:21] LABS: Folate 16.5 ng/mL (> or = 4.0); Vitamin B12 323 pg/mL (200-900)
[2021-10-20 11:25] LABS: Insulin 17 uU/mL (2-29)
[2021-10-20 11:42] LABS: Appearance Urine Cloudy; Color Urine Yellow; Glucose Urine UA Negative (Negative); Leukocyte Esterase Urine Large (3+) (Negative); Nitrite Urine Negative (Negative); PH 6.5 (5.0-9.0); Specific Gravity - Urine 1.025 (1.005-1.025); UMIC TRIGGER UACC YES; Urine Blood Negative (Negative); Urine Ketones Negative (Negative); Urine Protein Trace mg/dL (Neg-Trace)
[2021-10-20 11:49] LABS: Bacteria Urine 4+ (None Seen); Hyaline Casts Urine 0-2 /LPF (0-2); RBC Urine 0-2 /HPF (0-2); Squamous Epithelial Cell Urine >20 /HPF (0-2); UACC Culture Trigger YES; WBC Urine 21-50 /HPF (0-5)
[2021-10-21 15:21] LABS: Calcium (PTHI) 9.4 mg/dL (8.6-10.2); PTHI 71 pg/mL (16-77)
[2021-10-24 06:26] LABS: Vitamin B1 12 nmol/L (8-30)
[2021-10-25 05:02] LABS: Zinc 74 mcg/dL (60-130)
[2021-10-26 19:26] LABS: Vitamin A 40 mcg/dL (38-98)
== END 2021-10-20 09:39 | disposition home or self-care (01) ==
LOC: HO.LAB 09:38
PROVIDERS: PCP Internal Medicine; Visit Provider Physician Assistant Surgical
DX: E66.01 Morbid (severe) obesity due to excess calories (principal)
CPT/HCPCS: 36415; 80061; 81001; 82306; 82607; 82728; 82746; 83036; 83525; 83540; 83970; 84425; 84590; 84630; 86140; 87086; 87088; 87186; 93005

== ENCOUNTER 2021-10-21 15:59 | Outpatient (REF) | payer OTHER, SELFPAY ==
--- NOTE | ~2021-10-21 | XR_ITS ---
EXAMINATION: XR CHEST CLINICAL INFORMATION: Morbid obesity COMPARISON: None TECHNIQUE: 2 views of the chest were obtained. FINDINGS: No focal consolidation. No pneumothorax. Trachea is midline. Cardiomediastinal silhouette is not enlarged. No large pleural effusion. Osseous structures are intact. Soft tissues are unremarkable. XR/XR chest 2V IMPRESSION: No acute cardiopulmonary process.
== END 2021-10-21 16:00 | disposition home or self-care (01) ==
LOC: HO.XRAY 15:59
PROVIDERS: PCP Internal Medicine; Visit Provider Physician Assistant Surgical
DX: E66.01 Morbid (severe) obesity due to excess calories (principal)
CPT/HCPCS: 71046

== ENCOUNTER → 2021-11-01 16:02 | Outpatient (BNVA) | payer OTHER, SELFPAY | PROVIDERS: PCP Internal Medicine; Referring Provider Physician Assistant Surgical; Visit Provider Dietitian, Registered | DX: E66.01 Morbid (severe) obesity due to excess calories (principal); Z68.38 Body mass index [BMI] 38.0-38.9, adult | CPT/HCPCS: 97802 ==

== ENCOUNTER → 2021-11-03 16:07 | Outpatient (BNVA) | payer OTHER, SELFPAY | PROVIDERS: PCP Internal Medicine; Visit Provider Nurse Practitioner | DX: R74.01 Elevation of levels of liver transaminase levels (principal); E66.01 Morbid (severe) obesity due to excess calories; Z68.39 Body mass index [BMI] 39.0-39.9, adult | CPT/HCPCS: 99202 ==

== ENCOUNTER → 2021-11-10 16:00 | Outpatient (BNVA) | payer OTHER, SELFPAY | PROVIDERS: PCP Internal Medicine; Referring Provider Physician Assistant Surgical; Visit Provider Counselor Mental Health | DX: F43.20 Adjustment disorder, unspecified (principal); Z63.4 Disappearance and death of family member | CPT/HCPCS: 90791 ==

== ENCOUNTER 2021-11-30 15:45 | Outpatient (REF) | payer OTHER, SELFPAY ==
--- NOTE | ~2021-11-30 | US_ITS ---
EXAMINATION: US THYROID CLINICAL INFORMATION: Autoimmune thyroiditis. COMPARISON: Ultrasound thyroid 03/10/2020. TECHNIQUE: Linear transducer grayscale and color Doppler examination with attention to the region of the thyroid. FINDINGS: SIZE: Measurements of the thyroid lobes and nodules are given in sagittal, anteroposterior and transverse dimensions respectively. Right Thyroid Lobe: 6.6 x 2.1 x 2.4 cm, volume 17.2 mL. Previously 7.1 x 2.8 x 3.0 cm, volume 30.8 mL. Parenchyma: The gland echotexture is heterogeneous. Thyroid vascularity is increased. Left Thyroid Lobe: 6.6 x 2.3 x 2.4 cm, volume 18.7 mL. Previously 7.1 x 2.1 x 2.6 cm, volume 19.8 mL. Parenchyma: The gland echotexture is heterogeneous. Thyroid vascularity is increased. Isthmus: 0.7 cm in maximum AP dimension. Previously 0.9 cm. No focal thyroid nodule is seen. NODES: There is a 1.6 x 0.7 x 1.2 cm left level 3 cervical lymph node with abnormal cortical thickening. There is a 1.5 x 0.4 x 1.5 cm left level 3 cervical lymph node with abnormal hypoechogenicity and cortical thickening. There is a 1.2 x 0.3 x 0.7 cm level 6 cervical lymph node adjacent to the isthmus, previously measuring 1.1 x 0.4 x 0.8 cm, with preserved fatty chelsea and normal appearing cortex. US/US thyroid IMPRESSION: 1. Enlarged and heterogeneous thyroid gland with increased vascularity, in keeping with history of autoimmune thyroiditis. 2. Evaluation of thyroid nodules is limited due to heterogeneous background, however no discrete greater than 1 cm measurable nodules are identified. Continued surveillance with imaging is recommended. 3. There are two left-sided level 3 cervical lymph nodes with abnormal cortical thickening and echogenicity. Recommend a very short-term follow-up ultrasound or further evaluation with tissue sampling.
[2021-11-30 17:10] LABS: Gamma Glutamyl Transpeptidase 18 U/L (7-33)
[2021-12-01 07:52] LABS: HBS Num1 37.62 mIU/mL (0-7.99); HBc Num1 0.19 S/CO (0.00-0.79); HBsAGNum1 0.33 S/CO (0.00-0.99); HIV AB/AG Nonreactive (Nonreactive); HIV Num 1 0.05 S/CO (0.00-0.99); Hepatitis B Core Antibody Nonreactive (Nonreactive); Hepatitis B Surface Antigen Negative (Negative); ~HepC Num1 0.22 S/CO (0.00-0.79); ~Hepatitis B Surface Antibody REACTIVE (Nonreactive); ~Hepatitis C Antibody Nonreactive (Nonreactive)
[2021-12-02 04:37] LABS: Hepatitis A Antibody IgM 0.14 Index (0-0.79); ~Hepatitis A Antibody IgM Nonreactive (Nonreactive)
[2021-12-02 13:47] LABS: Alpha Fetoprotein 1.7 ng/mL
[2021-12-02 15:52] LABS: Anti Nuclear Antibody Screen NEGATIVE (NEGATIVE)
[2021-12-05 14:23] LABS: Mitochondrial Antibodies NEGATIVE (NEGATIVE)
[2021-12-06 02:37] LABS: Smooth Muscle Antibody 24 U (<20)
== END 2021-11-30 15:46 | disposition home or self-care (01) ==
LOC: HO.US 15:45
PROVIDERS: Absent Provider Nurse Practitioner; PCP Internal Medicine; Visit Provider Internal Medicine
DX: Z11.4 Encounter for screening for human immunodeficiency virus [HIV] (principal); E06.3 Autoimmune thyroiditis; R74.01 Elevation of levels of liver transaminase levels
CPT/HCPCS: 36415; 76536; 82105; 82977; 86015; 86038; 86039; 86255; 86256; 86704; 86706; 86709; 86803; 87340; 87389

== ENCOUNTER 2021-12-01 08:23 | Outpatient (REF) | payer OTHER, SELFPAY ==
--- NOTE | ~2021-12-01 | FL_ITS ---
EXAMINATION: XR FLUOROSCOPY UPPER GI WITH AIR CLINICAL INFORMATION: Obesity COMPARISON: None TECHNIQUE: Air-contrast upper GI examination FINDINGS: There is normal apposition of the focal cords while saying E. There is normal elevation of the soft palate while saying candy. Patient swallowed thin and thick barium and half-inch diameter barium tablet without difficulty. No nasopharyngeal reflux or tracheal aspiration identified. There is normal esophageal motility without evidence of persistent stricture or ulcerations/erosions. No hiatal hernia was identified. There is noted to be mild gastroesophageal reflux within the distal third of the esophagus which cleared rapidly. The stomach demonstrated normal distensibility without evidence of abnormal mass or ulceration. There was no delay in gastric emptying. The duodenal bulb and sweep appeared unremarkable. FLUOROSCOPY TIME: 1.4 minutes DOSE AREA PRODUCT: 13.024 Gy-cm2 (kyle-centimeter squared) FL/FL upper GI w air IMPRESSION: Mild gastroesophageal reflux. Otherwise unremarkable air-contrast upper GI examination.
--- NOTE | ~2021-12-01 | US_ITS ---
EXAMINATION: US COMPLETE ABDOMEN WITH LIVER ELASTOGRAPHY CLINICAL INFORMATION: Obesity COMPARISON: Previous abdominal ultrasound from [address] of the abdomen and pelvis from 2013 TECHNIQUE: Real-time imaging of the abdominal viscera. Noninvasive ultrasound liver fibrosis assessment is performed using Fredy ElastPQ point quantification shear wave elastography (2D-SWE) with a C5-2 MHz transducer. Multiple elastography samples are obtained. FINDINGS: PANCREAS: Normal. ABDOMINAL AORTA: The proximal, middle, and distal aortic segments are normal in caliber. INFERIOR VENA CAVA: Visualized portions are normal. LIVER: Liver echotexture is slightly increased. The liver is normal in size and contour. No focal lesion or intrahepatic biliary duct dilatation. The right lobe measures 17 cm in length. The left lobe measures 11 cm in length. Portal flow is normal/hepatopedal Shear wave liver elastography median stiffness is 1.3 m/s (reference: normal median stiffness is 1.3 m/s or less). IQR/median stiffness to assess sampling precision is 0.04 (reference: good quality data set is IQR/median stiffness of 0.15 or less). GALLBLADDER: Normal. The gallbladder is physiologically distended without evidence of stones, sludge, polyps, wall thickening or pericholecystic fluid. COMMON BILE DUCT: Normal in caliber measuring 0.3 cm in diameter. RIGHT KIDNEY: Normal. No hydronephrosis. No renal calculi or focal parenchymal lesions. The kidney measures 11 cm in maximum dimension. LEFT KIDNEY: Normal. No hydronephrosis. No renal calculi or focal parenchymal lesions. The kidney measures 11 cm in maximum dimension. SPLEEN: Upper normal in size. The spleen measures 12.7 cm in maximum dimension. FREE FLUID: None. US/US abdomen comp w elastography IMPRESSION: 1. Impression: Echogenic liver probably representing fatty infiltration. 2. Liver elastography: Adequate liver sampling. Normal liver stiffness. REFERENCE: Society of Radiologists in Ultrasound Liver Stiffness Thresholds (2020): LIVER STIFFNESS THRESHOLDS: *Liver Stiffness equal or less than 1.3 m/s: High probability of being normal. *Liver Stiffness less than 1.7 m/s: In the absence of other known clinical signs, rules out compensated advanced chronic liver disease. *Liver Stiffness 1.7-2.1 m/s: Suggestive of compensated advanced chronic liver disease but need further test for confirmation. *Liver Stiffness over 2.1 m/s: Rules in compensated advanced chronic liver disease. *Liver Stiffness over 2.4 m/s: Suggestive of clinically significant portal hypertension. QUALITY OF DATA SET: *IQR/Median value equal or less than 0.15 implies a quality data set. *IQR/Median value over 0.15 implies a poor quality data set. SIGNIFICANT CHANGE FROM PRIOR EXAM: Significant change if liver stiffness measurement is 10% or greater from prior exam. OTHER CONSIDERATIONS: The stage of liver fibrosis may be overestimated in the setting of acute hepatitis, liver inflammation, elevated liver function tests, hepatic vascular congestion, obstructive cholestasis, non-fasting state, and infiltrative diseases such as amyloidosis and lymphoma. In some patients with NAFLD, the liver stiffness thresholds for compensated advanced chronic liver disease may be lower. In causes other than viral hepatitis and NAFLD, liver stiffness thresholds are not well established.
== END 2021-12-01 08:24 | disposition home or self-care (01) ==
LOC: HO.US 08:23
PROVIDERS: Visit Provider Physician Assistant Surgical
DX: E66.01 Morbid (severe) obesity due to excess calories (principal)
CPT/HCPCS: 74246; 76705; 76981

== ENCOUNTER 2021-12-13 06:05 | Inpatient (IN) | payer OTHER, SELFPAY ==
[2021-12-06 07:44] LABS: MANUAL DIFF FLAG NO
[2021-12-06 08:47] LABS: Basophils Percent Auto 0.5 % (0-2); Eosinophils Absolute Auto 0.3 X10*3/uL (0.0-0.4); Eosinophils Percent Auto 4.2 % (0-4); Hematocrit 41.6 % (37.0-47.0); Hemoglobin 13.8 g/dl (12.0-16.0); Imm Gran Abs Auto 0.02 X10*3/uL (0.00-0.03); Imm Gran Pct Auto 0.3 % (0.0-0.4); Lymphocytes Percent Auto 30.3 % (20-40); Mean Corpuscular HGB Conc 33.2 g/dl (31.0-35.0); Mean Corpuscular Hemoglobin 28.6 pg (27.0-33.0); Mean Corpuscular Volume 86.1 fL (80.0-98.0); Mean Platelet Volume 9.4 fL (9.4-12.3); Monocytes Absolute Auto 0.5 X10*3/uL (0.1-1.2); Monocytes Percent Auto 8.2 % (2-11); Neutrophils Absolute Auto 3.7 x10*3/uL (2.0-8.3); Neutrophils Percent Auto 56.5 % (45-73); Platelet Count 273 X10*3/uL (160-400); Red Blood Count 4.83 X10*6/uL (4.20-5.50); White Blood Count 6.5 X10*3/uL (4.8-10.8)
[2021-12-06 08:53] LABS: Prothrombin Time 11.7 SEC (10.0-13.1)
[2021-12-06 08:54] LABS: Estimated Average Glucose 88 mg/dL; Hemoglobin A1c % 4.7 %
[2021-12-06 08:55] LABS: Partial Thromboplastin Time 32.3 SEC (26.0-36.4)
[2021-12-06 09:37] LABS: Alanine Aminotransferase 45 U/L (0-31); Albumin Level 4.4 g/dL (3.5-5.0); Alkaline Phosphatase 48 U/L (39-117); Anion Gap 18 (12-20); Aspartate Amino Transferase 31 U/L (5-31); Bilirubin Total 0.4 mg/dL (0.0-1.0); Blood Urea Nitrogen 7 mg/dL (9-16); C Reactive Protein 0.21 mg/dL (< or = 0.50); Calcium 9.5 mg/dL (8.4-10.2); Carbon Dioxide 20 mmol/L (22-29); Chloride 105 mmol/L (96-108); Cholesterol 143 mg/dL; Estimated Glomerular Filt Rate > 60; Glucose Random 88 mg/dL (60-115); HDL Cholesterol 31 mg/dL; LDL Cholesterol Calculated 84 mg/dl; Potassium 3.8 mmol/L (3.3-5.1); Sodium 139 mmol/L (135-145); Total Protein 7.3 g/dL (6.5-8.0); Triglycerides 144 mg/dL
[2021-12-06 09:42] LABS: TSH reflex Free T4 2.09 uIU/mL (0.32-4.0)
[2021-12-06 10:13] LABS: Insulin 23 uU/mL (2-29)
[2021-12-08 10:35] VITALS: BMI 36.3
--- NOTE | 2021-12-10 12:59 | MHC.SHP ---
Pre-Procedural Eval Section A Date of Service: 12/10/21 The patient is an INPATIENT: Yes The History & Physical has been completed within 30 days and I have reviewed it.: Yes Section B Chief Complaint: Obesity, Relevant Family History (Specify if Yes): No Relevant Social History: None Present Medications: None Medical History: No relevant PMH History of Previous Operations: No relevant previous surgery Allergies: Allergies Allergy/AdvReac Type Severity Reaction Status Date / Time azithromycin Allergy Severe throat Verified 12/08/21 10:32 swelling AZO CRANBERRY URINARY TRACT Allergy Severe THROAT Uncoded 12/08/21 10:32 HEALTH SWELLING Review of Systems Sugical H&P ROS: Negative: Constitution, Cardiovascular, Respiratory, Neurological, Psychiatric, Hem-Onc, Allergic/Immunologic, Gastrointestinal, Genitourinary, Musculoskeletal, Integumentary, Endocrine and Eyes/Ears/Nose/Throat Exam Surgical H&P Exam: Normal: HEENT, Normal: Heart, Normal: Lungs, Normal: Extremities, Normal: Abdomen, Normal: Skin and Normal: Neurological Plan Diagnosis/Plan: Unchanged I have reviewed the history and physical and performed a pertinent physical examination on my patient. No changes have occurred unless specified.
[2021-12-12 09:37] LABS: COVID-19 Test Negative (Negative); IDNOW Serial# 9DB6401D
--- NOTE | 2021-12-12 11:40 | HO.ANESPROP2 ---
Documented by User: Amee Choudhary NP 12/12/21 11:41 HPI - Anesthesia Eval Consult details Narrative: 31yo F for Gastrectomy Sleeve,EGD,possible diaphragmatic hernia,possible ventral hernia,possible open PMFSH Active Problems Active Problems: All Active Problems (Updated 12/08/21 @ 14:14 by Sobeida Funes DO) Cervical lymphadenopathy (Acute) Cough (Acute) Morbid obesity (Acute) Asthma (Acute) Elevated liver enzymes (Acute) Adjustment disorder, unspecified (Acute) Bereavement (Acute) Obesity (Acute) BMI 37.0-37.9, adult (Acute) Transaminitis (Acute) Eric's disease (Acute) Vitamin D deficiency (Acute) Eric's disease (Acute) Goiter (Acute) Difficulty swallowing (Acute) Tonsillitis (Acute) GERD (gastroesophageal reflux disease) (Acute) Migraines (Acute) Past Medical History Medical History Cervical lymphadenopathy Difficulty swallowing GERD (gastroesophageal reflux disease) Goiter Eric's disease Eric's disease Migraines No known health problems Tonsillitis Transaminitis Vitamin D deficiency Family History Family History Father High cholesterol Liver failure Hypertension Lung disease Mother Diabetes Hypertension Cervical cancer Hypothyroidism Sister Lupus anticoagulant disorder Maternal Grandmother CVD (cardiovascular disease) Maternal Grandfather Diabetes CVD (cardiovascular disease) Paternal Uncle Colon cancer Maternal Aunt Graves disease Surgical History Surgical History History of cervical cerclage History of cholecystectomy History of tubal ligation Hx of tonsillectomy Social History Social History Housing: Apartment Housing Other:: [facility] Are you a primary home child care provider to a significant other at home: Yes (children, mother will be there after surgery) Do you presently have visiting nurse or other home services: No Alcohol intake: never Patient Tobacco Use Status: Never used Tobacco e-Cigarette/Vaping Use: Never Used Second Hand Smoke Exposure: No Use of substances other than those prescribed or required for medical reasons: No Have you been hit, kicked, punched, or otherwise hurt by someone within the past year? If so, by whom?: No Are you DNR?: No Advance Directives: No Advance Directives Information Provided: Yes Advance Directives on File: No Recently lost weight without trying: No Nutrition Risks: No Nutritional Risk Patient : No FDLMP: 11/21/2021 : No Poor oral hygiene: No (recent root canal) service: No Current occupational status: employed Current occupational exposures/hazards: No Meds Allergies Allergy/AdvReac Type Severity Reaction Status Date / Time azithromycin Allergy Severe throat Verified 12/13/21 06:29 swelling AZO CRANBERRY URINARY TRACT Allergy Severe THROAT Uncoded 12/13/21 06:29 HEALTH SWELLING Exam Exam Date and Time: December 12, 2021 1140 Height,Weight and Vital Signs: Height 5 ft 3 in Weight 92.986 kg Pertinent Lab Results Pertinent Lab Results: Laboratory Tests 12/06/21 12/06/21 12/06/21 07:37 07:42 07:42 WBC 6.5 RBC 4.83 Hgb 13.8 Hct 41.6 MCV 86.1 MCH 28.6 MCHC 33.2 RDW 13.0 Plt Count 273 MPV 9.4 Immature Gran % (Auto) 0.3 Neut % (Auto) 56.5 Lymph % (Auto) 30.3 [place] % (Auto) 8.2 Eos % (Auto) 4.2 H Baso % (Auto) 0.5 Lymph # (Auto) 2.0 [place] # (Auto) 0.5 Eos # (Auto) 0.3 Baso # (Auto) 0.0 Abs Immat Gran (auto) 0.02 Absolute Neuts (auto) 3.7 Absolute Nucleated RBC 0.000 Nucleated RBC % (auto) 0.0 PT 11.7 INR 1.0 APTT 32.3 Sodium Potassium Chloride Carbon Dioxide Anion Gap BUN Creatinine Estim Creat Clear Calc Estimated GFR Random Glucose Estimat Average Glucose Hemoglobin A1c % Insulin Level Calcium Total Bilirubin AST ALT Alkaline Phosphatase C-Reactive Protein Total Protein Albumin Triglycerides Cholesterol LDL Cholesterol, Calc HDL Cholesterol TSH COVID-19 ([facility]) COVID-19 Clin Com Blood Type A Positive Antibody Screen NEGATIVE 12/06/21 12/06/21 12/12/21 07:42 07:42 09:00 WBC RBC Hgb Hct MCV MCH MCHC RDW Plt Count MPV Immature Gran % (Auto) Neut % (Auto) Lymph % (Auto) [place] % (Auto) Eos % (Auto) Baso % (Auto) Lymph # (Auto) [place] # (Auto) Eos # (Auto) Baso # (Auto) Abs Immat Gran (auto) Absolute Neuts (auto) Absolute Nucleated RBC Nucleated RBC % (auto) PT INR APTT Sodium 139 Potassium 3.8 Chloride 105 Carbon Dioxide 20 L Anion Gap 18 BUN 7 L Creatinine 0.70 Estim Creat Clear Calc TNP Estimated GFR > 60 Random Glucose 88 Estimat Average Glucose 88 Hemoglobin A1c % 4.7 Insulin Level 23 Calcium 9.5 Total Bilirubin 0.4 AST 31 ALT 45 H Alkaline Phosphatase 48 C-Reactive Protein 0.21 Total Protein 7.3 Albumin 4.4 Triglycerides 144 Cholesterol 143 LDL Cholesterol, Calc 84 HDL Cholesterol 31 TSH 2.09 COVID-19 ([facility]) Negative COVID-19 Clin Com See Note Blood Type Antibody Screen Narrative Narrative: EKG 10/2021 Vent. Rate : 079 BPM ? ? Atrial Rate : 079 BPM ?? P-R Int : 122 ms? QRS Dur : 092 ms ? ? QT Int : 372 ms ? ? ? P-R-T Axes : 009 014 014 degrees ?? QTc Int : 426 ms ? Normal sinus rhythm Normal ECG No previous ECGs available Assessment and Plan Assessment Anesthesia Assessment: Chart Reviewed Documented by User: Colette Nevarez MD 12/13/21 07:26 [facility] Past Medical History Medical History Cervical lymphadenopathy Difficulty swallowing GERD (gastroesophageal reflux disease) Goiter Eric's disease Eric's disease Migraines No known health problems Tonsillitis Transaminitis Vitamin D deficiency Family History Family History Father High cholesterol Liver failure Hypertension Lung disease Mother Diabetes Hypertension Cervical cancer Hypothyroidism Sister Lupus anticoagulant disorder Maternal Grandmother CVD (cardiovascular disease) Maternal Grandfather Diabetes CVD (cardiovascular disease) Paternal Uncle Colon cancer Maternal Aunt Graves disease Surgical History Surgical History History of cervical cerclage History of cholecystectomy History of tubal ligation Hx of tonsillectomy History of Problems with Anesthesia: No Social History Social History Housing: Apartment Housing Other:: [facility] Are you a primary home child care provider to a significant other at home: Yes (children, mother will be there after surgery) Do you presently have visiting nurse or other home services: No Alcohol intake: never Patient Tobacco Use Status: Never used Tobacco e-Cigarette/Vaping Use: Never Used Second Hand Smoke Exposure: No Use of substances other than those prescribed or required for medical reasons: No Have you been hit, kicked, punched, or otherwise hurt by someone within the past year? If so, by whom?: No Are you DNR?: No Advance Directives: No Advance Directives Information Provided: Yes Advance Directives on File: No Recently lost weight without trying: No Nutrition Risks: No Nutritional Risk Patient : No FDLMP: 11/21/2021 : No Poor oral hygiene: No (recent root canal) service: No Current occupational status: employed Current occupational exposures/hazards: No Meds Allergies Allergy/AdvReac Type Severity Reaction Status Date / Time azithromycin Allergy Severe throat Verified 12/13/21 06:29 swelling AZO CRANBERRY URINARY TRACT Allergy Severe THROAT Uncoded 12/13/21 06:29 HEALTH SWELLING Exam Airway Mallampati Class: II TM Dist: >3cm Neck ROM: Full Loose/Missing/Broken Teeth: No Heart: RRR Lungs: CTA Assessment and Plan Assessment Anesthesia Assessment: Anesthesia Plan Discussed Final Anesthetic Review History of Problems with Anesthesia: No NPO: Yes ASA Class: II Final Preanesthetic Review: Meds/Allgs Chart Reviewed, Consent Obtained/Reviewed and Anes Risks/Benef Reviewed Patient Risk: Low Procedure Risk: Intermediate Anesthetic Plan Anesthetic Plan: GA Disposition: Standard PACU
[2021-12-13] VITALS (13 sets, daily range): BP systolic 100–120; BP diastolic 57–77; PULSE 73–95; RESP 14–20; TEMP 36.4–37.5; O2SAT 94–100
[2021-12-13] MEDS: Lactated Ringers 1,000 ML 100 ML IVCONT ×3 (06:52→19:33)
[2021-12-13] MEDS: Lactated Ringers 1,000 ML 999 ML IV ×2 (06:52→10:57)
--- NOTE | 2021-12-13 07:06 | PHA.MEDREC ---
Pharmacy Consult ? Medication Reconciliation Pharmacy has reviewed the medication reconciliation completed by nursing. Winsome Canales, DestinyD
[2021-12-13] MEDS: Famotidine/PF 20 MG/2 ML VIAL IVPUSH ×2 (10:56→19:30)
[2021-12-13] MEDS: ondansetron HCL 4 MG/2 ML VIAL IVPUSH ×2 (11:02→19:30)
[2021-12-13 11:04] LABS: Hematocrit 40.7 % (37.0-47.0); Hemoglobin 13.5 g/dl (12.0-16.0)
[2021-12-13 11:30] LABS: Anion Gap 13 (12-20); Blood Urea Nitrogen 8 mg/dL (9-16); Calcium 9.2 mg/dL (8.4-10.2); Carbon Dioxide 22 mmol/L (22-29); Chloride 104 mmol/L (96-108); Creatinine Clr Calc Pharmacy 121.5; Estimated Glomerular Filt Rate > 60; Glucose Random 109 mg/dL (60-115); Potassium 4.2 mmol/L (3.3-5.1); Sodium 135 mmol/L (135-145)
--- NOTE | 2021-12-13 11:57 | P.BOP_ITS ---
Brief Operative Note Date of Service: 12/13/21 Pre-op diagnosis: Severe obesity and comorbidities (see below) Post-op diagnosis: same Procedure: INITIAL PATIENT BMI ON PRESENTATION AT OUR OFFICE: 40.9 kg/m2 LAST BMI BEFORE SURGERY: 36.1 kg/m2 COMORBIDITIES: asthma, GERD, scoliosis, hypothyroidism ?The patient presented to the Weight Management Program with significant obesity that was negatively impacting the patient's comorbidities as listed above.? The program is a phased program with a special focus on preoperative medical weight management to promote substantial weight loss and prepare the patients for the second phase of the program: bariatric surgery. The patient participated in an intensive weekly lifestyle ?intervention and exercise program during which the patient ?has lost between the initial office visit and the last preoperative visit 25.8lbs, or 11.37% of initial actual body weight. It was deemed appropriate for the patient to now have bariatric surgery. In light of the current Covid-19 pandemic and the well documented strong association of obesity and increased risk of worse outcomes if infected with Covid-19 (REFERENCES: https://pubmed.ncbi.nlm.nih.gov/78134066/ ,? https://p med.ncbi.nlm.nih.gov/55524313/ ), any delay in undergoing bariatric surgery may lead to the patient's worsening health condition and increased?risk of more severe Covid-19 disease if infected. In addition a recent?study from [facility] published in [facility] on 01/31/2021 ([email or web address]) found that, among patients with obesity, substantial weight loss achieved with surgery was associated with improved outcomes of COVID-19 infection. The findings suggest that obesity can be a modifiable risk factor for the severity of COVID-19 infection. In addition, the patient met the BMI-criteria for bariatric surgery based on the BMI on initial presentation. The patient should not be penalized for achieving such weight loss because ?it is not sustainable long-term without surgical intervention and it was achieved in preparation for bariatric surgery ?under my direction and based on my published research ([email or web address]).[email or web address] and? https://www.soard.org/article/[email or web address](92)22836-X/pdf ) ?that a 10% preoperative weight loss improves long-term weight loss after surgery and reduces perioperative complications.? Insurance carriers such as [facility] have endorsed my recommendations ?and have included in their policies criteria to include a 10% preoperative weight loss requirement. PROCEDURE: Esophago-gastroscopy,laparoscopic lysis of adhesions, laparoscopic sleeve gastrectomy and laparoscopic gastropexy INDICATIONS: This is a 31 year-old female who was electively scheduled for laparoscopic, possibly open sleeve gastrectomy. The risks and complications of the procedure were discussed with the patient in advance, particularly the possi bility of ; pulmonary embolism; staple line leak; bleeding; GERD; cardiac, pulmonary, or renal complications; as well as long-term problems such as insufficient weight loss, vitamin deficiency, strictures, or ulcers. The patient understood all the risks, and was in agreement to proceed with surgery. DESCRIPTION OF PROCEDURE: After informed consent was obtained from the patient, the patient was given preoperative antibiotics, and was transferred to the operating room. After successful induction of general anesthesia, pneumatic compression devices were placed on both lower extremities. An upper endoscopy was performed next. The oropharynx and esophagus appeared to be within normal limits. There was no diaphragmatic hernia present consistent with the findings of the preoperative upper GI. The stomach was entered. Then after all fluid and air were suctioned and the stomach was fully decompressed, the scope was withdrawn and secured in the mid esophagus. The patient was then prepped and draped in the usual sterile manner, and abdominal access was established at the right upper quadrant with the Santi technique. A 12 mm blunt port was inserted, and the abdomen was insufflated with CO2 to a pressure of 15 mmHg. Under direct visualization, additional ports were placed, specifically two 5 mm Versi-step ports to the left upper quadrant, and a 5 mm Versi-Step port to the right upper quadrant. 1% lidocaine plain was used to infiltrate all port sites as well as all fascia defects. Using the EndoClose suture passer device, I placed a #1 Polysorb tie across the falciform ligament in order to retract it up against the abdominal wall and prevent injury of the ligament with our instruments during the procedure. Following that, the patient was placed in a steep reverse Trendelenburg position. An additional 5 mm port was placed to the right flank for the Mediflex retractor that was used to retract the left lobe of the liver. The gastro-esophageal fat pad was opened with the ultrasonic device (Thunderbeat, Olympus) and the anterior esophagus and hiatus were exposed. The angle of His was opened with the ultrasonic device the fundus of the stomach from any diaphragmatic and splenic attachments. I then opened the gastrocolic ligament between the transverse colon and the greater curvature of the stomach with the ultrasonic device to enter the lesser sac and facilitate the ligation of the short gastric vessels. I started at a mid-point along the greater curvature and using the Thunderbeat, all short gastric vessels were divided all the way to the angle of His until the left melissa was completely dissected at its entirety. I then divided the gastro-colic ligament distally to a distance of about 3-4 cm proximal to the pylorus. There were extensive congenital adhesions between the pancreas and posterior gastric wall. Those were lysed completely with the ultrasonic device. Adhesiolysis took approximately 45 min to complete. The stomach was then divided transversely with one Endo CAMILLE-45 purple, one CAMILLE- 45 orange load and three CAMILLE-60 articulating orange loads using the AEON stapler and loads. Every effort was made that the gastric sleeve had a tubular shape and an even caliber throughout. Once the sleeve resection was completed, the staple line of the gastric sleeve was reinforced with Hemoclips. The resected stomach was retrieved without difficulty from the Santi port. A gastropexy was then performed in order to prevent postoperative GERD and partial gastric volvulus. Several interrupted 2.0 Surgidac sutures were placed between the sleeve's staple line and the previously divided greater omentum and gastro-colic ligament using the Endo-Stitch device. ?An upper endoscopy was performed. There was no narrowing at the GE junction. The scope was easily advanced all the way to the pylorus which was clearly visualized. There was no narrowing anywhere and the sleeve's caliber was even throughout. The sleeve's staple line was inspected and there was no evidence of ischemia, bleeding or dehiscence. At that point the gastroscope was withdrawn from the patient?s mouth while we were decompressing the bowel and the stomach from any remaining air. I looked into the lesser sac to see how the sleeve was situating and it was situating well. There was no bleeding from the staple line, spleen, or short gastric vessels. The Mediflex retractor was removed, and the undersurface of the liver was inspected and there was no bleeding. The patient was placed in supine position. I closed the fascial defect of the 12 mm port site with a figure of eight #1 Polysorb suture. Then 30cc of Ropivacaine plain with 10 mg of Dexamethasone were used to infiltrate the fascial closure as well as all skin incisions. A total of 7ml Zynrelef was applied in the Santi wound. At this point, the abdomen was deflated, all ports were removed under direct vision, and no bleeding was noted from any of the port sites. The skin incisions were irrigated with saline and were closed with 4-0 absorbable monofilament sutures. Steri-Strips and OpSites were used to cover all incisions. The patient was extubated and was transferred in stable condition to the recovery room for further care. I was present and performed all spann parts of the procedure. Ms. Funes was the registered nurse first assistant. There were no residents to assist with this case. Quinn Diop MD, PhD, FACS Surgeon: Timo Diop MD Anesthesia: GETA, local and other (TAP block and 7ml Zynrelef) Was an Centrifugal Chiller Technician used for this Procedure?: Yes Centrifugal Chiller Technician: Traci Funes Estimated blood loss (mL): 10 IV fluids (mL): 3,000 Urine output (mL): 0 (No Mcclellan to record) Pathology: other (Stomach) Condition: stable Disposition: PACU
--- NOTE | 2021-12-13 12:03 | P.PNGS_ITS ---
Subjective Subjective Date of Service: 12/14/21 Interval history: Patient has mild incisional pain, but was able to ambulate and use the incentive spirometer. She is tolerating phase 1 bariatric diet Physical Exam Vital Signs: Vital Signs: Last Vital Signs Temp 97.6 F 12/13/21 12:00 Pulse 75 12/13/21 12:00 Resp 16 12/13/21 12:00 BP 114/74 12/13/21 12:00 Pulse Ox 99 12/13/21 12:00 O2 Del Method 12/13/21 12:00 O2 Flow Rate 2 12/13/21 12:00 BMI result Body Mass Index 36.3 GI: Inspection: Yes normal to inspection, Yes incision (clean, dry and intact) and Yes obesity Palpation (GI): Soft to palpation Extrem: Right lower extremity: normal to inspection (no calf tenderness) Left lower extremity: normal to inspection (no calf tenderness) Objective Data Active Medications Albuterol Sulfate (Albuterol Sulfate (0.083%) 2.5 Mg/3 Ml Vial.Neb) 2.5 mg INHALE ONCE PRN PRN Reason: Wheezing Famotidine (Famotidine/Pf 20 Mg/2 Ml Vial) 20 mg IVPUSH BID ABRAN Last Admin: 12/13/21 10:56 Dose: 20 mg Documented By: KEVIN Hydromorphone HCl (Hydromorphone Hcl 0.5 Mg/0.5 Ml Syringe) 0.25 mg IVPUSH Q4H PRN; Protocol PRN Reason: Pain, Moderate (Pain Scale 4-6 Cefazolin Sodium/Dextrose (Ancef) 2 gm in 50 mls @ 100 mls/hr IV POSTOP ONE Stop: 12/13/21 14:29 Acetaminophen (Ofirmev) 1,000 mg in 100 mls @ 16.7 mls/hr IV .Q6H ABRAN Lactated Ringer's (Lr) 1,000 mls @ 100 mls/hr IVCONT .Q10H ABRAN Metoclopramide HCl (Metoclopramide Hcl 10 Mg/2 Ml Vial) 10 mg IVPUSH Q6H PRN PRN Reason: Nausea Ondansetron HCl (Ondansetron Hcl 4 Mg/2 Ml Vial) 4 mg IVPUSH Q8H ABRAN Sodium Chloride (0.9 % Sodium Chloride Flush 3 Ml Syringe) 3 ml IVFLUSH QSHIFT [facility] Labs CBC & Chem 7: 12/14/21 05:58 12/14/21 05:58 Labs: Laboratory Results - last 24 hr 12/13/21 10:58 Anion Gap 13 Estim Creat Clear Calc 121.5 Estimated GFR > 60 Random Glucose 109 Calcium 9.2 Procedures Date of Service Date of Service: 12/14/21 Progress Note: A&P Assessment and plan (1) Obesity: Status: Acute Assessment and Plan: s/p laparoscopic sleeve gastrectomy, lysis of adhesions and gastropexy Doing well Check am labs. If OK, will discharge home? (2) BMI 36.0-36.9,adult: Status: Acute (3) Status post laparoscopic sleeve gastrectomy: Status: Acute (4) GERD (gastroesophageal reflux disease): Status: Acute (5) Hypothyroidism: Status: Acute (6) Scoliosis: Status: Acute Time Spent With Patient Time: Total time spent is greater than 50% in coordination of care (as documented) at patient's floor/unit and/or counseling patient: Quality Stroke Does the patient have a stroke diagnosis?: No VTE Prior VTE?: No VTE Risk Level:: Surgical - moderate VTE Device Contraindication: N/A - Device Ordered VTE Drug Contraindication: Treatment Not Indicated
[2021-12-13] MEDS: ceFAZolin Sodium/Dextrose,Iso 2 GM/50 ML PIGGYBACK IV (13:29)
[2021-12-13] MEDS: Acetaminophen 1,000 MG/100 ML PIGGYBACK 16.7 MG IV ×2 (14:08→19:30)
[2021-12-13] MEDS: Metoclopramide HCl 10 MG/2 ML VIAL IVPUSH (14:16)
--- NOTE | 2021-12-13 14:42 | MHC.CM.PN ---
EMR REVIEWED, PT ADMITTED S/P LAP SLEEVE GASTRECTOMY, CM MET W/PT W/SPOUSE AND DTR WHO WERE AT BEDSIDE, PT REPORTS SHE LIVES W/ AND 3 CHILDREN, PT REPORTS SHE IS INDEPENDENT W/ALL CARE, DENIES USE OF DME/HOME SERVICES, PT VERIFIES PCP BERNARDO HARDY X2, PT REPORTS SHE WOULD LIKE TO DO ANOTHER HCP AND CM WILL MEET W/PT TOMORROW PRIOR TO D/C TO COMPLETE NEW HCP PT HAS BEEN UNDER ANESTHESIA TODAY. WILBERT D/C TOMORROW 12/14/21 HOME SELF-CARE W/ FOR TRANSPORT
--- NOTE | 2021-12-13 15:41 | P.DS_ITS ---
DS: Providers Provider Date of Service: 12/14/21 Date of admission: 12/13/21 06:05 Date of discharge: 12/14/21 Primary care physician: Jody Casanova MD DS: Diagnosis Discharge Diagnosis (1) Obesity: Status: Acute (2) BMI 36.0-36.9,adult: Status: Acute (3) Status post laparoscopic sleeve gastrectomy: Status: Acute (4) GERD (gastroesophageal reflux disease): Status: Acute (5) Hypothyroidism: Status: Acute (6) Scoliosis: Status: Acute DS: Summary Hospital Course Hospital Course: ADMITTING DIAGNOSIS: morbid obesity,?hypothyroidism, asthma, scoliosis, GERD DISCHARGE DIAGNOSIS: same, s/p laparoscopic sleeve gastrectomy and repair diaphragmatic hernia PAST SURGICAL HISTORY:?cervical cerclage, cholecystectomy, tubal ligation, tonsillectomy PROCEDURE: upper endoscopy, laparoscopic sleeve gastrectomy and gastropexy DISCHARGE SUMMARY: History of Present Illness: The patient is a? 31? year-old woman with a BMI of?40.4 kg/m2 and associated co- morbidities as described above. The patient had extensive work-up, lost?23 lbs preoperatively and was electively scheduled for laparoscopic, possible open sleeve gastrectomy and gastropexy. Risks and complications of the surgery were discussed with the patient in advance, particularly the possibility of , pulmonary embolism, anastomotic leak, bleeding, bowel injury, GERD, cardiac, renal or pulmonary complications. The patient understood all the risks and was in agreement with the surgical plan. Hospital Course: The patient underwent an uneventful laparoscopic sleeve gastrectomy with gastropexy on the day of admission. Postoperatively, the patient was transferred to the surgical floor. The patient received IV Acetaminophen and IV dilaudid for pain control. Patient was started on bariatric phase 1 diet POD #0. On postoperative day one, the patient was feeling well without nausea, vomiting, fevers, or tachycardia. The patient had some mild incisional pain and the abdomen was soft.? On the morning of postoperative day one, the patient was continued on 1 ounce of water or ice every half hour. During the day, the patient did fairly well, having some incisional pain, but able to ambulate adequately and to tolerate liquids well. Since the patient is doing well, we decided that the patient was ready to be discharged. The patient was given instructions to follow-up with me next week and to call my office for any fever over 101, persistent abdominal pain, nausea, vomiting, GERD, symptoms of DVT such as calf tenderness, or leg swelling, or pulmonary embolism such as chest pain or shortness of breath.? The patient was also instructed to drink 40-60 ounces of liquids per day using the 1-ounce cups. The patient had been given prescriptions for Tylenol for pain, Zofran prn for nausea, and pantoprazole and carafate previously. The patient was encouraged to ambulate and use the incentive spirometer. The patient was allowed to shower, but no baths, and encouraged to stay active at home. All of these instructions were given to the patient personally. All questions were answered and the patient understood all instructions, the instructions were also given to the patient in print. Time Spent with Patient Time attestation: Total time spent providing and/or coordinating discharge services: Discharge coordination time: Less than 30 minutes Quality: Safe Use of Opioids Does Pt have an Active Cancer Diagnosis on the Problem List?: No Quality: Stroke Does the patient have a stroke diagnosis?: No Physical Exam Vital Signs: Vital Signs: Last Vital Signs Temp 98.9 F 12/13/21 15:26 Pulse 73 12/13/21 15:26 Resp 16 12/13/21 15:26 BP 120/72 12/13/21 15:26 Pulse Ox 95 12/13/21 15:26 O2 Del Method 12/13/21 15:26 O2 Flow Rate 2.0 12/13/21 15:26 BMI result Body Mass Index 36.3 DS: Data Data Completed and Pending Pending studies at discharge: Pending at discharge 12/13/21 09:28 Surgical [PTH] Routine Labs on day of discharge: Laboratory Results - last 24 hr 12/13/21 12/13/21 10:58 10:58 Hgb 13.5 Hct 40.7 Sodium 135 Potassium 4.2 Chloride 104 Carbon Dioxide 22 Anion Gap 13 BUN 8 L Creatinine 0.72 Estim Creat Clear Calc 121.5 Estimated GFR > 60 Random Glucose 109 Calcium 9.2 Discharge Plan Discharge Anticipated Discharge Date/Time: 12/14/21 10:00 Patient Disposition: Home, Self-Care Discharge Diagnosis: morbid obesity Referrals: Jody Ly MD [Primary Care Provider] - 1 Week Discharge Medications: Continued pantoprazole 40 mg tablet,delayed release (DR/EC) 40 mg PO DAILY Qty: 30 2RF sucralfate 100 mg/mL suspension 10 ml PO BID Qty: 400 0RF ondansetron HCl 4 mg tablet 4 mg PO Q12H Qty: 20 0RF Discontinued cholecalciferol (vitamin D3) 50 mcg (2,000 unit) capsule 50 mcg PO DAILY 30 Days Qty: 30 11RF cyanocobalamin (vitamin B-12) 1,000 mcg tablet, sublingual 1,000 mcg sublingual DAILY Qty: 30 2RF Vitron-C 65 mg iron- 125 mg tablet,delayed release (DR/EC) 1 tab PO DAILY Qty: 30 2RF Rx Instructions: swallow whole; do not chew/break/dissolve/open Activity on Discharge: No heavy lifting Stand Alone Forms: Patient Portal Discharge page Care Plan Goals: weight loss Health Concerns: morbid obesity Plan of Treatment: No tub baths, sex or returning to work until discussed at first post op appointment. No exercise, alcohol, tobacco or illegal drug use. Continue to use incentive spirometer hourly while awake. Walk in home for 5- 10 minutes every 2 hours during the first week. Follow all instructions in the bariatric handbook and call with any questions.Discharge Instructions 1. Please call your doctor or come back to the emergency room should any new symptoms arise. 2. You will receive a courtesy call from [facility] 24-48 hours after discharge. 3. Activity: abstain from alcohol, practice limited stair climbing, no bending, no driving, no exercise, no illicit substances, no lifting, no sex, no tub bath, no work. 4. Diet: continue as discussed with Dr. Diop. 5. Dressing Change/Wound Care: Your incision is covered by clear bandages and guaze underneath. If the area is tender, you may apply an ice pack for short intervals (no more than 20 minutes on, followed by at least 20 minutes off). Do not apply heat. Do not use creams, lotions, or topical antibiotics unless instructed to do so by your surgeon. These can cause infection or allergic reaction. 6. Call your doctor if: - Your temperature exceeds 101.5 F - You experience excessive pain or swelling - You have an unexpected reaction to medication - You have excessive bleeding - You experience continued vomiting/nausea - Your incision begins to separate - Your incision shows signs of infection such as increased redness, swelling, excessive pain, heat, or drainage (light blood or clear fluid is normal) 7. General instructions: No lifting greater than 5 lbs for the next 4 weeks[address] driving within 24 hours of taking narcotic pain medications. If you do not move your bowels in the next 2 days, please take milk of magnesia over the counter. Please follow the post op diet and do not advance your diet until you are seen in the office in about 2 weeks. Please walk around your home every hour or two to prevent blood clots from forming in your legs. You do not need to wake from sleeping to walk. Please sleep in a bed or couch to prevent kinking at the hips and knees. Please take your incentive spirometer (your lung gas compressor operator) home with you and use it for the next few days to prevent pneumonias. You may shower, no hot tubs, baths or swimming pools. Please call the office with any questions or concerns such as increasing abdominal pain, fever, chills, shortness of breath, chest pain, leg pain or swelling, or redness or drainage from your incisions. Please stay on stage 3 diet which includes sugar free clear liquids such as ice pops and jello and broth and crystal light. Avoid all carbonation. The Celebrate shakes have all of the bariatric vitamins you need if you consume these shakes. If you are drinking other protein shakes, you will need to purchase the Celebrate multivitamins and calcium that we provide in the office (they will provide all the vitamins you need). Please make sure you are consuming at least 40-60 ounces of water in addition to your 3 protein shakes daily. Do not hesitate to contact the office with any questions at . The patient's medical history has been reviewed and they are considered low risk for post op DVT and therefore DVT prophylaxis is not considered necessary. Travel after surgery was reviewed. The patient has not disclosed any travel plans during the first 30 days after surgery and they have been advised that within the first 30 days after surgery any bus, plane, train or car travel over 2 hours in duration is contraindicated due to the possibility of developing blood clots from immobility. Any travel, needs to include periods of ambulation of 10 minutes in duration every 2 hours.? The patient was instructed to discuss any plans for travel during this period with their bariatric surgeon. Assessment: s/p laparoscopic sleeve gastrectomy
[2021-12-13] MEDS: 0.9 % Sodium Chloride Flush 3 ML SYRINGE IVFLUSH (19:33)
[2021-12-14] MEDS: Acetaminophen 1,000 MG/100 ML PIGGYBACK 16.7 MG IV ×2 (01:16→05:06)
[2021-12-14 03:45] VITALS: BP 107/62; PULSE 86; RESP 18; TEMP 37.6; O2SAT 95
[2021-12-14] MEDS: Lactated Ringers 1,000 ML 100 ML IVCONT (05:05)
[2021-12-14] MEDS: ondansetron HCL 4 MG/2 ML VIAL IVPUSH (05:09)
[2021-12-14 06:29] LABS: MANUAL DIFF FLAG NO
[2021-12-14 06:32] LABS: Basophils Percent Auto 0.1 % (0-2); Eosinophils Percent Auto 0.1 % (0-4); Hematocrit 36.1 % (37.0-47.0); Hemoglobin 12.4 g/dl (12.0-16.0); Imm Gran Abs Auto 0.03 X10*3/uL (0.00-0.03); Imm Gran Pct Auto 0.3 % (0.0-0.4); Lymphocytes Absolute Auto 1.7 X10*3/uL (1.2-4.9); Lymphocytes Percent Auto 14.9 % (20-40); Mean Corpuscular HGB Conc 34.3 g/dl (31.0-35.0); Mean Corpuscular Hemoglobin 29.7 pg (27.0-33.0); Mean Corpuscular Volume 86.4 fL (80.0-98.0); Mean Platelet Volume 9.7 fL (9.4-12.3); Monocytes Absolute Auto 0.9 X10*3/uL (0.1-1.2); Monocytes Percent Auto 8.2 % (2-11); Neutrophils Absolute Auto 8.7 x10*3/uL (2.0-8.3); Neutrophils Percent Auto 76.4 % (45-73); Platelet Count 209 X10*3/uL (160-400); Red Blood Count 4.18 X10*6/uL (4.20-5.50); Red Cell Distribution Width 12.7 % (11.0-16.0); White Blood Count 11.4 X10*3/uL (4.8-10.8)
[2021-12-14 06:50] LABS: Anion Gap 17 (12-20); Blood Urea Nitrogen 6 mg/dL (9-16); Calcium 8.9 mg/dL (8.4-10.2); Carbon Dioxide 19 mmol/L (22-29); Chloride 106 mmol/L (96-108); Creatinine Clr Calc Pharmacy 134.6; Estimated Glomerular Filt Rate > 60; Glucose Random 82 mg/dL (60-115); Potassium 3.8 mmol/L (3.3-5.1); Sodium 138 mmol/L (135-145)
[2021-12-14] MEDS: Famotidine/PF 20 MG/2 ML VIAL IVPUSH (07:02)
[2021-12-14 07:22] VITALS: BP 116/75; PULSE 78; RESP 17; TEMP 37.1; O2SAT 97
--- NOTE | 2021-12-14 08:47 | MHC.CM.PN ---
Pt medically cleared for d/c home self-care w/follow-up appt 12/20, pt's partner will transport. Pt met w/cm and completed a HCP, pt named her partner Elder Golden [phone] as his HCA and her mother Lakesha Damon [phone] as her alternate. Pt received educational handout, original and 2 copies, copy uploaded to [employer] and placed in chart.
--- NOTE | 2021-12-14 12:08 | HO.POSTANES ---
Post Anesthesia Evaluation Post Anesthesia Evaluation Vital Signs: Vital Signs Temp Pulse Resp BP Pulse Ox O2 Del Method 12/14/21 07:22 98.7 F 78 17 116/75 97 Room Air 12/14/21 07:09 Room Air 12/14/21 03:45 99.6 F 86 18 107/62 95 Room Air Anesthesia: General Endotracheal-GETA Mental Status: Awake Pain Control: Satisfactory Nausea/Vomiting: None Hydration: Adequate Anesthesia-Related Issues: No Anes. Related Issues
== END 2021-12-14 09:00 | disposition home or self-care (01) | DRG 403 ==
LOC: HO.SSSA 06:06 → HO.S3 10:56
PROVIDERS: Physician Assistant Surgical; Admitting Provider Surgery; PCP Internal Medicine; Visit Provider Surgery
PROC: 0DB64Z3 Excision of Stomach, Percutaneous Endoscopic Approach, Vertical (ICD-10-PCS; CPT 43845; principal; 2021-12-13 07:30)
DX: E66.01 Morbid (severe) obesity due to excess calories (principal); Q43.3 Congenital malformations of intestinal fixation; E06.3 Autoimmune thyroiditis; M41.9 Scoliosis, unspecified; K21.9 Gastro-esophageal reflux disease without esophagitis; Z68.36 Body mass index [BMI] 36.0-36.9, adult; Z20.822 Contact with and (suspected) exposure to COVID-19; Z98.51 Tubal ligation status; Z88.1 Allergy status to other antibiotic agents; Z79.899 Other long term (current) drug therapy
CPT/HCPCS: 36415; 80048; 80053; 80061; 83036; 83525; 84443; 85014; 85018; 85025; 85610; 85730; 86140; 86850; 86900; 86901; 87635; 88307; 88342; A4649; C9088; J0131; J0690; J1100; J1170; J2250; J2405; J2550; J2765; J2795; J3010

== ENCOUNTER → 2022-01-10 14:03 | Outpatient (BNVA) | payer OTHER, SELFPAY | PROVIDERS: PCP Internal Medicine; Visit Provider Nurse Practitioner | DX: K75.81 Nonalcoholic steatohepatitis (NASH) (principal); I95.9 Hypotension, unspecified; K21.9 Gastro-esophageal reflux disease without esophagitis; K59.00 Constipation, unspecified | CPT/HCPCS: 99212 ==

== ENCOUNTER 2022-01-11 16:07 | Outpatient (REF) | payer OTHER, SELFPAY ==
[2022-01-11 16:19] LABS: MANUAL DIFF FLAG NO
[2022-01-11 16:41] LABS: COVID-19 Test Negative (Negative); IDNOW Serial# BCCEAD1C
[2022-01-11 17:25] LABS: Basophils Percent Auto 0.4 % (0-2); Eosinophils Absolute Auto 0.4 X10*3/uL (0.0-0.4); Eosinophils Percent Auto 5.9 % (0-4); Hemoglobin 13.5 g/dl (12.0-16.0); Imm Gran Abs Auto 0.01 X10*3/uL (0.00-0.03); Imm Gran Pct Auto 0.1 % (0.0-0.4); Lymphocytes Absolute Auto 2.4 X10*3/uL (1.2-4.9); Lymphocytes Percent Auto 35.7 % (20-40); Mean Corpuscular HGB Conc 33.8 g/dl (31.0-35.0); Mean Corpuscular Hemoglobin 28.9 pg (27.0-33.0); Mean Corpuscular Volume 85.7 fL (80.0-98.0); Mean Platelet Volume 10.5 fL (9.4-12.3); Monocytes Absolute Auto 0.6 X10*3/uL (0.1-1.2); Monocytes Percent Auto 8.4 % (2-11); Neutrophils Absolute Auto 3.4 x10*3/uL (2.0-8.3); Neutrophils Percent Auto 49.5 % (45-73); Platelet Count 241 X10*3/uL (160-400); Red Blood Count 4.67 X10*6/uL (4.20-5.50); Red Cell Distribution Width 13.4 % (11.0-16.0); White Blood Count 6.8 X10*3/uL (4.8-10.8)
[2022-01-11 17:47] LABS: Anion Gap 15 (12-20); Blood Urea Nitrogen 10 mg/dL (9-16); Calcium 9.9 mg/dL (8.4-10.2); Carbon Dioxide 24 mmol/L (22-29); Chloride 104 mmol/L (96-108); Estimated Glomerular Filt Rate > 60; Glucose Random 79 mg/dL (60-115); Potassium 3.8 mmol/L (3.3-5.1); Sodium 139 mmol/L (135-145)
== END 2022-01-11 16:08 | disposition home or self-care (01) ==
LOC: HO.LAB 16:07
PROVIDERS: PCP Internal Medicine; Visit Provider Physician Assistant Surgical
DX: R53.83 Other fatigue (principal); I95.9 Hypotension, unspecified; Z20.822 Contact with and (suspected) exposure to COVID-19
CPT/HCPCS: 80048; 85025; 87635

== ENCOUNTER → 2022-01-19 15:14 | Outpatient (BNVA) | payer OTHER, SELFPAY | PROVIDERS: PCP Internal Medicine; Visit Provider Dietitian, Registered | DX: E66.9 Obesity, unspecified (principal); Z68.32 Body mass index [BMI] 32.0-32.9, adult | CPT/HCPCS: 97803 ==

== ENCOUNTER → 2022-01-26 13:09 | Outpatient (BNVA) | payer OTHER, SELFPAY | PROVIDERS: PCP Internal Medicine; Visit Provider Dietitian, Registered | DX: E66.9 Obesity, unspecified (principal); Z68.32 Body mass index [BMI] 32.0-32.9, adult | CPT/HCPCS: 97803 ==

== ENCOUNTER → 2022-02-16 13:58 | Outpatient (BNVA) | payer OTHER, SELFPAY | PROVIDERS: PCP Internal Medicine; Visit Provider Dietitian, Registered | DX: E66.9 Obesity, unspecified (principal); Z68.30 Body mass index [BMI] 30.0-30.9, adult; Z98.84 Bariatric surgery status; Z71.3 Dietary counseling and surveillance | CPT/HCPCS: 97803 ==

== ENCOUNTER → 2022-03-15 13:44 | Outpatient (BNVA) | payer OTHER, SELFPAY | PROVIDERS: PCP Internal Medicine; Visit Provider Dietitian, Registered | DX: E66.3 Overweight (principal); Z68.29 Body mass index [BMI] 29.0-29.9, adult | CPT/HCPCS: 97803 ==

== ENCOUNTER → 2022-04-12 11:34 | Outpatient (BNVA) | payer OTHER, SELFPAY | PROVIDERS: PCP Internal Medicine; Visit Provider Dietitian, Registered | DX: E66.3 Overweight (principal); Z68.28 Body mass index [BMI] 28.0-28.9, adult; Z98.84 Bariatric surgery status; Z71.3 Dietary counseling and surveillance | CPT/HCPCS: 97803 ==

== ENCOUNTER 2022-05-05 10:28 | Outpatient (REF) | payer OTHER, SELFPAY ==
[2022-05-05 16:04] LABS: CT PCR NOT DETECTED (Not Detect.); NG PCR NOT DETECTED (Not Detect.)
[2022-05-06 10:12] LABS: BV Int Neg Control Negative (Negative); BV Int Pos Control Positive (Positive)
[2022-05-10 05:19] LABS: HPV mRNA E6/E7 rflx Not Detected (Not Detected)
== END 2022-05-05 10:29 | disposition home or self-care (01) ==
LOC: HO.LNP 10:28
PROVIDERS: PCP Internal Medicine; Visit Provider Advanced Practice Midwife
DX: Z01.419 Encounter for gynecological examination (general) (routine) without abnormal findings (principal); E66.3 Overweight; Z11.3 Encounter for screening for infections with a predominantly sexual mode of transmission; Z87.42 Personal history of other diseases of the female genital tract; Z98.84 Bariatric surgery status; Z79.899 Other long term (current) drug therapy
CPT/HCPCS: 0353U; 87480; 87510; 87624; 87660; 88142

== ENCOUNTER → 2022-05-18 13:43 | Outpatient (BNVA) | payer OTHER, SELFPAY | PROVIDERS: PCP Internal Medicine; Visit Provider Dietitian, Registered | DX: E66.3 Overweight (principal); Z68.27 Body mass index [BMI] 27.0-27.9, adult; Z98.84 Bariatric surgery status; Z71.3 Dietary counseling and surveillance | CPT/HCPCS: 97803 ==

== ENCOUNTER → 2022-06-20 15:48 | Outpatient (BNVA) | payer OTHER, SELFPAY | PROVIDERS: PCP Internal Medicine; Visit Provider Physician Assistant Surgical | DX: E66.3 Overweight (principal); R12 Heartburn; E55.9 Vitamin D deficiency, unspecified; Z68.25 Body mass index [BMI] 25.0-25.9, adult; Z90.49 Acquired absence of other specified parts of digestive tract; Z90.3 Acquired absence of stomach [part of]; Z98.84 Bariatric surgery status | CPT/HCPCS: 99212 ==

== ENCOUNTER 2022-07-14 09:31 | Outpatient (REF) | payer OTHER, SELFPAY ==
[2022-07-14 09:54] LABS: MANUAL DIFF FLAG NO
[2022-07-14 10:29] LABS: Basophils Percent Auto 0.6 % (0-2); Eosinophils Absolute Auto 0.6 X10*3/uL (0.0-0.4); Eosinophils Percent Auto 10.3 % (0-4); Hematocrit 42.3 % (37.0-47.0); Hemoglobin 14.1 g/dl (12.0-16.0); Imm Gran Abs Auto 0.02 X10*3/uL (0.00-0.03); Imm Gran Pct Auto 0.3 % (0.0-0.4); Lymphocytes Absolute Auto 2.3 X10*3/uL (1.2-4.9); Lymphocytes Percent Auto 36.5 % (20-40); Mean Corpuscular HGB Conc 33.3 g/dl (31.0-35.0); Mean Corpuscular Hemoglobin 29.2 pg (27.0-33.0); Mean Corpuscular Volume 87.6 fL (80.0-98.0); Monocytes Absolute Auto 0.4 X10*3/uL (0.1-1.2); Monocytes Percent Auto 5.8 % (2-11); Neutrophils Absolute Auto 2.9 x10*3/uL (2.0-8.3); Neutrophils Percent Auto 46.5 % (45-73); Platelet Count 275 X10*3/uL (160-400); Red Blood Count 4.83 X10*6/uL (4.20-5.50); Red Cell Distribution Width 12.2 % (11.0-16.0); White Blood Count 6.2 X10*3/uL (4.8-10.8)
[2022-07-14 10:51] LABS: Estimated Average Glucose 85 mg/dL; Hemoglobin A1c % 4.6 %
[2022-07-14 10:57] LABS: Alanine Aminotransferase 9 U/L (0-31); Albumin Level 4.2 g/dL (3.5-5.0); Alkaline Phosphatase 49 U/L (39-117); Anion Gap 12 (12-20); Aspartate Amino Transferase 13 U/L (5-31); Bilirubin Total 0.7 mg/dL (0.0-1.0); Blood Urea Nitrogen 12 mg/dL (9-16); C Reactive Protein 0.15 mg/dL (< or = 0.50); Carbon Dioxide 26 mmol/L (22-29); Chloride 105 mmol/L (96-108); Cholesterol 164 mg/dL; Estimated Glomerular Filt Rate > 60; Glucose Random 79 mg/dL (60-115); HDL Cholesterol 41 mg/dL; Iron 109 mcg/dL (30-160); LDL Cholesterol Calculated 104 mg/dl; Percent Iron Saturation 41 % (15-50); Potassium 4.5 mmol/L (3.3-5.1); Sodium 138 mmol/L (135-145); Total Iron Binding Capacity 267 mcg/dL (228-428); Total Protein 7.2 g/dL (6.5-8.0); Triglycerides 99 mg/dL; Unsaturated Iron Binding 158 ug/dL
[2022-07-14 11:28] LABS: Ferritin 64 ng/mL (10-122); Folate 16.7 ng/mL (> or = 4.0); Insulin 6 uU/mL (2-29); TSH reflex Free T4 0.82 uIU/mL (0.32-4.0); Vitamin B12 654 pg/mL (200-900); Vitamin D 25-OH Total 53.4 ng/mL (>30)
[2022-07-18 12:39] LABS: Calcium (PTHI) 9.9 mg/dL (8.6-10.2); PTHI 36 pg/mL (16-77)
[2022-07-19 03:03] LABS: Zinc 77 mcg/dL (60-130)
[2022-07-20 10:37] LABS: Vitamin A 41 mcg/dL (38-98)
[2022-07-22 08:03] LABS: Vitamin B1 18 nmol/L (8-30)
== END 2022-07-14 09:32 | disposition home or self-care (01) ==
LOC: HO.LAB 09:31
PROVIDERS: PCP Internal Medicine; Visit Provider Physician Assistant Surgical
DX: Z98.84 Bariatric surgery status (principal)
CPT/HCPCS: 36415; 80053; 80061; 82306; 82607; 82728; 82746; 83036; 83525; 83540; 83970; 84425; 84443; 84590; 84630; 85025; 86140

== ENCOUNTER → 2022-07-18 16:09 | Outpatient (BNVA) | payer OTHER, SELFPAY | PROVIDERS: PCP Internal Medicine; Visit Provider Nurse Practitioner | DX: K75.81 Nonalcoholic steatohepatitis (NASH) (principal); K21.9 Gastro-esophageal reflux disease without esophagitis; K59.00 Constipation, unspecified | CPT/HCPCS: 99212 ==

== ENCOUNTER → 2022-07-26 14:00 | Outpatient (BNVA) | payer OTHER, SELFPAY | PROVIDERS: PCP Internal Medicine; Visit Provider Dietitian, Registered | DX: Z98.84 Bariatric surgery status (principal); Z90.3 Acquired absence of stomach [part of]; Z71.3 Dietary counseling and surveillance | CPT/HCPCS: 97803 ==

== ENCOUNTER 2022-07-31 13:45 | Outpatient (REF) | payer OTHER, SELFPAY ==
--- NOTE | ~2022-07-31 | US_ITS ---
EXAMINATION: US SOFT TISSUE OF THE NECK CLINICAL INFORMATION: Localized enlarged lymph nodes. Cervical lymph node mapping and to evaluate the lymph node with cortical thickening on last ultrasound of the thyroid. COMPARISON: Ultrasound thyroid 11/30/2021 and 03/10/2020. TECHNIQUE: Ultrasound of the neck soft tissues is performed with high frequency kyle-scale imaging and color Doppler. FINDINGS: RIGHT NECK SOFT TISSUES: Right neck soft tissues and nodes are as follows: Level IA: 0.8 x 0.6 x 0.6 cm. Newly seen. Rounded configuration with good corticomedullary differentiation, no focal cortical thickening and a vascular hilum. Level IB: 0.9 x 0.7 x 1.0 cm. Newly seen. Normal natalee architecture. Level IB: 0.7 x 0.7 x 0.9 cm. Newly seen. Normal natalee architecture. Level II: 0.8 x 0.5 x 0.7 cm. Newly seen. Slightly rounded configuration with poor corticomedullary differentiation and a vascular hilum Level III: 1.2 x 0.4 x 0.6 cm. Newly seen. Normal natalee architecture. LEFT NECK SOFT TISSUES: Left neck soft tissues and nodes are as follows: Level IB: 0.8 x 0.6 x 0.9 cm. Newly seen. Slightly rounded configuration with a slitlike hilum. Level IB: 0.9 x 0.8 x 1.2 cm. Newly seen. Normal natalee architecture. Level III: 1.4 x 0.5 x 1.4 cm. Newly seen. Normal natalee architecture. Level III: 1.3 x 0.3 x 0.9 cm. Newly seen. Poor corticomedullary differentiation. OTHER: No additional findings. US/US soft tiss head and/or neck IMPRESSION: Nonspecific bilateral cervical lymph nodes are newly seen, one on the right and 2 on the left mildly enlarged. These are nonspecific and should be managed on a clinical basis. If of continued clinical concern, these can be further evaluated with follow-up ultrasound imaging in 3-6 months to ensure stability/regression.
== END 2022-07-31 13:46 | disposition home or self-care (01) ==
LOC: HO.US 13:45
PROVIDERS: PCP Internal Medicine; Visit Provider Internal Medicine
DX: R59.0 Localized enlarged lymph nodes (principal)
CPT/HCPCS: 76536

== ENCOUNTER 2022-08-22 13:49 | Outpatient (AMB) | payer OTHER, SELFPAY ==
[2022-08-22 13:19] VITALS: BMI 24.4
--- NOTE | 2022-08-22 13:19 | MHC.AMNUTRGE ---
Intake VS Expanded 08/22/22 13:19 Height 5 ft 3 in Weight 138 lb BMI 24.4 Intake Visit Reasons: VIDEO PO LSG 12/13/21 Allergies azithromycin Allergy (Severe, Verified 08/04/22 13:18) throat swelling AZO [facility] Allergy (Severe, Uncoded 08/04/22 13:18) THROAT SWELLING HPI Nutrition Presentation Details G 12/13/21 Preop weight 207# weight at 5 WKS PO 183# weight at 3 MO 167 Weight at 4 MO 159# weight at 5 MO PO 154# current weight 138# Goal weight 135#, interested in skin removal Reason for consult other (weight maintenance ) Diet Assmnt Details 2 Orgain 2 scoops shakes, 8oz 1% milk each surinamese yogurt or cottage cheese, smoothie packet from sones (12g protein, 120 calories) dinner: 2 eggs or 2oz protein with vegetable Stopped taking carafate and she notices constipation has significantly improved. having BM daily now. Exercise: Has a gym at home , is doing some weight training. 1 hour every day Taking celebrate MVI, putting in her shakes and tolerating well. calcium once daily hydration: adequate Pt shares she will be going to [place] - where she is from - for a little over two weeks. isleaving in 2 days. She wants to know how to manage her nutrition while away. Diagnosis Nutrition problem #1 overweight/obesity As related to (etiology) #1 excess energy intake and physical inactivity As evidenced by (sign/symptom) #1 high BMI (resolving) Monitoring/Goals Nutrition problem monitoring total energy intake, level of knowledge/skill, total PRO intake, total CHO intake and weight Outcome progress progressing Learning/Education Readiness to learn excellent Stages of change action Most Recent Diabetes Results: Cholesterol 164 mg/dL 07/14/22 HDL Cholesterol 41 mg/dL 07/14/22 Triglycerides 99 mg/dL 07/14/22 Creatinine 0.74 mg/dL (0.5-1.4) 07/14/22 Blood Urea Nitrogen 12 mg/dL (9-16) 07/14/22 Sodium 138 mmol/L (135-145) 07/14/22 Potassium 4.5 mmol/L (3.3-5.1) 07/14/22 Chloride 105 mmol/L (96-108) 07/14/22 Carbon Dioxide 26 mmol/L (22-29) 07/14/22 Calcium 10.0 mg/dL (8.4-10.2) 07/14/22 AST 13 U/L (5-31) 07/14/22 ALT 9 U/L (0-31) 07/14/22 Total Protein 7.2 g/dL (6.5-8.0) 07/14/22 Albumin 4.2 g/dL (3.5-5.0) 07/14/22 [facility] Medical History (Updated 08/04/22 @ 13:34 by Liudmila Mcpherson NP) BMI 36.0-36.9,adult Cervical lymphadenopathy Cough Difficulty swallowing GERD (gastroesophageal reflux disease) Goiter Eric's disease Eric's disease Hypothyroidism Migraines No known health problems Obesity Scoliosis Tonsillitis Transaminitis Vitamin D deficiency Surgical History History of cervical cerclage History of cholecystectomy History of sleeve gastrectomy History of tubal ligation Hx of tonsillectomy Status post laparoscopic sleeve gastrectomy Family History Father High cholesterol Liver failure Hypertension Lung disease Mother Diabetes Hypertension Cervical cancer Hypothyroidism Sister Lupus anticoagulant disorder Maternal Grandmother CVD (cardiovascular disease) Maternal Grandfather Diabetes CVD (cardiovascular disease) Paternal Uncle Colon cancer Maternal Aunt Graves disease Social History Housing: Apartment Housing Other:: [facility] Are you a primary infant childcare provider to a significant other at home: Yes (children, mother will be there after surgery) Do you presently have visiting nurse or other home services: No Alcohol intake: never Patient Tobacco Use Status: Never used Tobacco e-Cigarette/Vaping Use: Never Used Second Hand Smoke Exposure: No service: No Current occupational status: employed Current occupational exposures/hazards: No Female Reproductive History Menstrual Age of Menarche: 12 Assessment & Plan Assessment & Plan (1) History of sleeve gastrectomy: Code(s): Z90.3 - Acquired absence of stomach [part of] Patient Instructions: Discussed adding in a source of healthy carb if able to, and sent picture of bariatric plate and list. will start with adding small amount of carb to 1 meal. Discussed how to stick to healthy habits while traveling, and how to still enjoy some of her favorite foods in [place]. She will follow up with ariella 1 month, but encouraged communication as needed in the meantime. Telehealth Telehealth Location of provider rendering services: practice address Location of patient: address on file Patient Identification confirmed using: Name, : Yes Telehealth method: video Patient verbally consented to treatment: Yes Patient verbally consented to billing insurance company: Yes Patient informed of any privacy concerns related to visit: Yes Minutes spent on Phone/Video with Pt.: 20 Coding Level of Care Code Nutr Indiv Subseq ([id number]) Diagnoses History of sleeve gastrectomy Z90.3 Time Spent (min) 20
== END 2022-08-22 14:43 | disposition home or self-care (01) ==
LOC: HO.HBS 13:49
PROVIDERS: PCP Internal Medicine; Visit Provider Dietitian, Registered
DX: Z90.3 Acquired absence of stomach [part of] (principal)

== ENCOUNTER → 2022-08-22 13:49 | Outpatient (BNVA) | payer OTHER, SELFPAY | PROVIDERS: PCP Internal Medicine; Visit Provider Dietitian, Registered | DX: Z90.49 Acquired absence of other specified parts of digestive tract (principal); Z90.3 Acquired absence of stomach [part of] | CPT/HCPCS: 97803 ==

== ENCOUNTER 2022-10-06 15:21 | Outpatient (AMB) | payer OTHER, SELFPAY ==
--- NOTE | 2022-10-06 15:29 | MHC.OFFVIS ---
Intake Vital Signs 10/06/22 15:32 Height 5 ft 3 in Weight 139 lb 8.842 oz BMI 24.7 BP 100/62 Blood Pressure Location Lt brachial Position Sitting Pulse 72 Pulse Source Pulse Oximeter Intake Visit Reasons: [employer] Intake Note: Patient present for [employer] follow up visit. Product Representative Required: No Accompanied by: Daughter Allergies azithromycin Allergy (Severe, Verified 10/06/22 15:35) throat swelling AZO [facility] Allergy (Severe, Uncoded 08/04/22 13:18) THROAT SWELLING Medication List - Last Reconciled 10/06/22 by Anshu Saavedra MD bisacodyl (Dulcolax (bisacodyl)) 10 mg (2 x 5 mg) PO BEDTIME 30 days [celebrate calcium PO DAILY] [celebrate multivitamin PO DAILY] [colace 100 mg PO DAILY] pantoprazole 40 mg PO DAILY 90 days polyethylene glycol 3350 (Miralax) 17 grams PO DAILY sucralfate (Carafate) 1 g PO QIDACHS HPI HPI Comments History of Present Illness Details 31 YO F with no significant PMHx who is seen in F/U for a Goiter. The patient last saw Dr. Jonas on 08/18/2020 She presented to her PCP with the complaint of difficulty swallowing. A Thyroid US was ordered, which revealed a heterogenous goiter, with no discrete nodules. She was subsequently referred to Endocrinology. Labs revealed TFTs WNL, but her TPO and TG antibodies were elevated, indicating Eric's disease. Labs also revealed Vitamin D deficiency. She was started on high dose replacement. She recently underwent adenoid removal, but reports she is feeling well with no symptoms of hyper or hypothyroidism currently. She does report that she was on Synthroid during her pregnancies, but this was stopped after delivery. She does have a Family history of hypothyroidism due to Eric's in her Mother. Her Mother's twin sister has Grave's disease. Thyroid US: 03/10/2020 Right Thyroid Lobe: 7.1 x 2.8 x 3.0 cm, volume 30.8 mL. Parenchyma: The gland echotexture is heterogeneous. Thyroid vascularity is normal. Left Thyroid Lobe: 7.1 x 2.1 x 2.6 cm, volume 19.8 mL. Parenchyma: The gland echotexture is heterogeneous. Thyroid vascularity is normal. Isthmus: 0.9 cm in maximum AP dimension. No focal thyroid nodule is seen. NODES: In the region of the thyroid isthmus there is a lymph node identified, with a vascular stalk visualized. This node measures 1.1 x 0.4 x 0.8 cm. Labs: Laboratory Tests 03/17/20 03/17/20 03/17/20 16:25 16:25 16:25 25-OH Vitamin D To inna 13.4 TSH 1.03 Free T4 0.91 Total T3 99 Thyroglobulin Anti body >1000 H Thyroid Peroxidase Ab >900 H [facility] Medical History (Updated 08/04/22 @ 13:34 by Liudmila Mcpherson NP) BMI 36.0-36.9,adult Cervical lymphadenopathy Cough Difficulty swallowing GERD (gastroesophageal reflux disease) Goiter Eric's disease Eric's disease Hypothyroidism Migraines No known health problems Obesity Scoliosis Tonsillitis Transaminitis Vitamin D deficiency Surgical History History of cervical cerclage History of cholecystectomy History of sleeve gastrectomy History of tubal ligation Hx of tonsillectomy Status post laparoscopic sleeve gastrectomy Family History Father High cholesterol Liver failure Hypertension Lung disease Mother Diabetes Hypertension Cervical cancer Hypothyroidism Sister Lupus anticoagulant disorder Maternal Grandmother CVD (cardiovascular disease) Maternal Grandfather Diabetes CVD (cardiovascular disease) Paternal Uncle Colon cancer Maternal Aunt Graves disease Social History Housing: Apartment Housing Other:: [facility] Are you a primary nanny caregiver to a significant other at home: Yes (children, mother will be there after surgery) Do you presently have visiting nurse or other home services: No Alcohol intake: never Patient Tobacco Use Status: Never used Tobacco e-Cigarette/Vaping Use: Never Used Second Hand Smoke Exposure: No service: No Current occupational status: employed Current occupational exposures/hazards: No Female Reproductive History Menstrual Age of Menarche: 12 Physical Exam Vital Signs: Last Vital Signs Pulse 72 10/06/22 15:32 BP 100/62 10/06/22 15:32 BMI result Body Mass Index 24.7 Const Other: Thyroid gland is of gms . 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 She appears to be clinically biochemically euthyroid. Her ultrasound showed initially some abnormal appearing lymph nodes but repeat ultrasound showed MPRESSION:Nonspecific bilateral cervical lymph nodes are newly seen, one on the right and 2 on the left mildly enlarged. These are nonspecific and should be managed on a clinical basis. If of continued clinical concern, these can be further evaluated with follow-up ultrasound Plan is to have the patient returned to the care of her primary care provider. In about 6 months time, primary care provider can send patient for repeat neck ultrasound. If there is any concern for abnormal lymph nodes of the repeat neck ultrasound, patient can then be referred to ENT for further evaluation. She returned back to endocrinology as needed Quality Reporting (2019) Adult ([facility] ) Smoking risk assessment performed?: Yes Patient Tobacco Use Status: Never used Tobacco Coding Level of Care Code Est Pt Level 3 (81023) Diagnoses Eric's disease E06.3
[2022-10-06 15:32] VITALS: BP 100/62; PULSE 72; BMI 24.7
== END 2022-10-06 16:11 | disposition home or self-care (01) ==
PROVIDERS: PCP Internal Medicine; Visit Provider Internal Medicine Endocrinology, Diabetes & Metabolism
DX: E06.3 Autoimmune thyroiditis (principal)
CPT/HCPCS: 99213

== ENCOUNTER → 2022-10-06 15:21 | Outpatient (BNVA) | payer OTHER, SELFPAY | PROVIDERS: PCP Internal Medicine; Visit Provider Internal Medicine Endocrinology, Diabetes & Metabolism | DX: E06.3 Autoimmune thyroiditis (principal) | CPT/HCPCS: 99212 ==

== ENCOUNTER → 2022-11-21 13:46 | Outpatient (BNVA) | payer OTHER, SELFPAY | PROVIDERS: PCP Internal Medicine; Visit Provider Dietitian, Registered | DX: E66.9 Obesity, unspecified (principal) | CPT/HCPCS: 97803 ==

== ENCOUNTER 2022-11-28 16:26 | Outpatient (AMB) | payer OTHER, SELFPAY ==
--- NOTE | 2022-11-28 16:28 | A.OFFVIS_ITS ---
Intake VS Expanded 11/28/22 16:33 BP 99/55 L Blood Pressure Location Rt brachial Blood Pressure Position Sitting Pulse 94 Pulse Source Pulse Oximeter Temp 98.3 F Temperature Source Temporal Artery Scan Pulse Oximetry 100 Oxygen Delivery Method Room Air Height 5 ft 2.5 in Weight 134 lb BMI 24.1 Body Fat % 26.0 Body Fat Mass 34.8 Fat Free Mass 99.0 Visceral Fat Rating 3.0 Body Water % 53.0 Body Water Mass 53.0 Muscle Mass/Score 94.0 Basal Metabolic Rate/Score 1,348 Intake Visit Reasons: (OV) PO LSG 12/13/21 Commercial Credit Portfolio Manager Required: No Allergies azithromycin Allergy (Severe, Verified 11/28/22 16:30) throat swelling AZO [facility] Allergy (Severe, Uncoded 08/04/22 13:18) THROAT SWELLING Medication List - Last Reconciled 11/28/22 by ALEX Bradley bisacodyl (Dulcolax (bisacodyl)) 10 mg (2 x 5 mg) PO BEDTIME 30 days [celebrate calcium PO DAILY] [celebrate multivitamin PO DAILY] [colace 100 mg PO DAILY] pantoprazole 40 mg PO DAILY 90 days HPI HPI Comments History of Present Illness Details Pleasant 32-year-old female, status post sleeve gastrectomy on 12/13/2021. This is approximately 1 year postoperative. Initial weight 228 # Preop weight 207# weight at 5 WKS PO 183# weight at 3 MO 167 Weight at 4 MO 159# weight at 5 MO PO 154# current weight at 11 MO PO 134# She states that she has noticed a rash occurring underneath the abdominal skin, above the pubic region. This rash occurs perhaps 5-6 times per month lasting anywhere between 2 days to 7 days. She has noticed pain when the rash occurs and it is quite itchy. There is also an odor with the rash. She has to shower 2-3 times per day when the rash occurs to maintain hygiene. The extra skin causes pain when bending to tie her shoes or put on socks and this is worse when she has the recurrent rash as she experiences it like a cut . The rash does improve with A and D ointment treatment but only to recur. Meal plan: shake Orgain, 2 scoops in 8 oz almond milk, 2 hours another shake, 2 hours tamazight yogurt meal 4 forks protein and 4 forks veg, 30-40 minutes Drinking 60 oz water daily Exercise plan: treadmill, walking, bike, elliptical, weights. has a gym in her home. 6 days per week, 2 hours cardio 6 days per week. Any post op complications: none VANESSA: never DM: never HTN: never Hyperlipidemia: never GERD:?0-5 scale ??0 = no symptoms ??1 = symptoms noticeable but not bothersome 2 =symptoms bothersome but not daily ? 3 = symptoms bothersome and daily 4 = symptoms affect daily activities 5 = symptoms are incapacitating, unable to do daily activities ? How bad is the heartburn: 1 ? Heartburn while lying down: 0 ? Heartburn when standing up: 0 ? Heartburn after meals: 2 ? Does heartburn change your diet: 0 ? Does heartburn wake you up from sleep: 0 ? Do you have difficulty swallowin ? Do you have pain with swallowin ? If you take medicine for your reflux, does this affect your daily life: N Satisfaction with present condition - satisfied or not satisfied: Not satisfied with the extra skin, satisfied with her weight. [facility] Medical History Scoliosis Hypothyroidism BMI 36.0-36.9,adult Cervical lymphadenopathy Obesity Transaminitis Cough Eric's disease Vitamin D deficiency Eric's disease Goiter Difficulty swallowing Tonsillitis GERD (gastroesophageal reflux disease) Migraines No known health problems Surgical History Status post laparoscopic sleeve gastrectomy History of sleeve gastrectomy Hx of tonsillectomy History of cervical cerclage History of tubal ligation History of cholecystectomy Family History Father High cholesterol Liver failure Hypertension Lung disease Mother Diabetes Hypertension Cervical cancer Hypothyroidism Sister Lupus anticoagulant disorder Maternal Grandmother CVD (cardiovascular disease) Maternal Grandfather Diabetes CVD (cardiovascular disease) Paternal Uncle Colon cancer Maternal Aunt Graves disease Social History Housing: Apartment Housing Other:: [facility] Are you a primary care coordination manager to a significant other at home: Yes (children, mo ther will be there after surgery) Do you presently have visiting nurse or other home services: No Alcohol intake: never Patient Tobacco Use Status: Never used Tobacco e-Cigarette/Vaping Use: Never Used Second Hand Smoke Exposure: No service: No Current occupational status: employed Current occupational exposures/hazards: No Female Reproductive History Menstrual Age of Menarche: 12 Physical Exam Vital Signs: Last Vital Signs Temp 98.3 F 11/28/22 16:33 Pulse 94 11/28/22 16:33 BP 99/55 L 11/28/22 16:33 Pulse Ox 100 11/28/22 16:33 Oxygen Delivery Method Room Air 11/28/22 16:33 BMI result Body Mass Index 24.1 Const General: cooperative and no acute distress Orientation/consciousness: patient oriented x3 Resp Effort & Inspection: normal respiratory effort Auscultation: clear to auscultation bilaterally Cardio Rate: regular rate Rhythm: regular rhythm GI Inspection: Yes normal to inspection and Yes incision (well healed) Palpation (GI): Soft to palpation and no masses Skin Other: Grade 1/2 pannus without current active dermatitis Neuro General: patient oriented x3 Assessment & Plan Assessment & Plan (1) Status post laparoscopic sleeve gastrectomy: Code(s): Z98.84 - Bariatric surgery status Plan: Patient has maintained a stable weight. Check 1 year postoperative labs. Continue current meal plan and exercise plan as this is working very well for her. Follow-up in clinic 1 month. (2) Excess skin: Code(s): L98.7 - Excessive and redundant skin and subcutaneous tissue Plan: Patient will contact me directly when the rash recurs. I will prescribe appropriate medications. We will have her follow-up in approximately 1 month and if after prescriptive treatment she continues to have recurrence, consideration for submission to her insurance company for medically necessary panniculectomy given the 94 lb weight loss since her initial presentation, equal to 41% total body weight loss. Orders: Orders Insulin Today E03.9 - Hypothyroidism, unspecified, E55.9 - Vitamin D deficiency, unspecified, I95.9 - Hypotension, unspecified, Z98.84 - Bariatric surgery status Zinc Today E03.9 - Hypothyroidism, unspecified, E55.9 - Vitamin D deficiency, unspecified, I95.9 - Hypotension, unspecified, Z98.84 - Bariatric surgery status Vitamin B1 Today E03.9 - Hypothyroidism, unspecified, E55.9 - Vitamin D deficiency, unspecified, I95.9 - Hypotension, unspecified, Z98.84 - Bariatric surgery status Vitamin A Today E03.9 - Hypothyroidism, unspecified, E55.9 - Vitamin D deficiency, unspecified, I95.9 - Hypotension, unspecified, Z98.84 - Bariatric surgery status C Reactive Protein Today E03.9 - Hypothyroidism, unspecified, E55.9 - Vitamin D deficiency, unspecified, I95.9 - Hypotension, unspecified, Z98.84 - Bariatric surgery status Ferritin Today E03.9 - Hypothyroidism, unspecified, E55.9 - Vitamin D deficiency, unspecified, I95.9 - Hypotension, unspecified, Z98.84 - Bariatric surgery status PTHI Today E03.9 - Hypothyroidism, unspecified, E55.9 - Vitamin D deficiency, unspecified, I95.9 - Hypotension, unspecified, Z98.84 - Bariatric surgery status TSH reflex Free T4 Today E03.9 - Hypothyroidism, unspecified, E55.9 - Vitamin D deficiency, unspecified, I95.9 - Hypotension, unspecified, Z98.84 - Bariatric surgery status Vitamin D 25-OH Total Today E03.9 - Hypothyroidism, unspecified, E55.9 - Vitamin D deficiency, unspecified, I95.9 - Hypotension, unspecified, Z98.84 - Bariatric surgery status Lipid Panel Today E03.9 - Hypothyroidism, unspecified, E55.9 - Vitamin D deficiency, unspecified, I95.9 - Hypotension, unspecified, Z98.84 - Bariatric surgery status IRON PROFILE Today E03.9 - Hypothyroidism, unspecified, E55.9 - Vitamin D deficiency, unspecified, I95.9 - Hypotension, unspecified, Z98.84 - Bariatric surgery status Complete Blood Count Auto Diff Today E03.9 - Hypothyroidism, unspecified, E55.9 - Vitamin D deficiency, unspecified, I95.9 - Hypotension, unspecified, Z98.84 - Bariatric surgery status Vitamin B12 and Folate Today E03.9 - Hypothyroidism, unspecified, E55.9 - Vitamin D deficiency, unspecified, I95.9 - Hypotension, unspecified, Z98.84 - Bariatric surgery status Hemoglobin A1c Today E03.9 - Hypothyroidism, unspecified, E55.9 - Vitamin D deficiency, unspecified, I95.9 - Hypotension, unspecified, Z98.84 - Bariatric surgery status Basic Metabolic Panel Today E03.9 - Hypothyroidism, unspecified, E55.9 - Vitamin D deficiency, unspecified, I95.9 - Hypotension, unspecified, Z98.84 - Bariatric surgery status Quality Reporting (2019) Adult ([facility] 138/03/29/68) Smoking risk assessment performed?: Yes Patient Tobacco Use Status: Never used Tobacco Coding Level of Care Code Est Pt Level 4 (78906) Diagnoses Status post laparoscopic sleeve gastrectomy Z98.84 Excess skin L98.7
[2022-11-28 16:33] VITALS: BP 99/55; PULSE 94; TEMP 36.8; O2SAT 100; BMI 24.1
== END 2022-11-28 17:19 | disposition home or self-care (01) ==
PROVIDERS: PCP Internal Medicine; Visit Provider Physician Assistant Surgical
DX: L98.7 Excessive and redundant skin and subcutaneous tissue (principal); Z90.3 Acquired absence of stomach [part of]; Z98.84 Bariatric surgery status
CPT/HCPCS: 99214

== ENCOUNTER → 2022-11-28 16:26 | Outpatient (BNVA) | payer OTHER, SELFPAY | PROVIDERS: PCP Internal Medicine; Visit Provider Physician Assistant Surgical | DX: L98.7 Excessive and redundant skin and subcutaneous tissue (principal); Z98.84 Bariatric surgery status | CPT/HCPCS: 99212 ==

== ENCOUNTER 2022-12-04 11:10 | Outpatient (REF) | payer OTHER, SELFPAY ==
[2022-12-04 11:31] LABS: MANUAL DIFF FLAG NO
[2022-12-04 12:34] LABS: Basophils Percent Auto 0.7 % (0-2); Eosinophils Absolute Auto 0.4 X10*3/uL (0.0-0.4); Eosinophils Percent Auto 6.4 % (0-4); Hematocrit 39.9 % (37.0-47.0); Hemoglobin 13.5 g/dl (12.0-16.0); Imm Gran Abs Auto 0.02 X10*3/uL (0.00-0.03); Imm Gran Pct Auto 0.3 % (0.0-0.4); Lymphocytes Absolute Auto 2.3 X10*3/uL (1.2-4.9); Lymphocytes Percent Auto 40.8 % (20-40); Mean Corpuscular HGB Conc 33.8 g/dl (31.0-35.0); Mean Corpuscular Hemoglobin 29.3 pg (27.0-33.0); Mean Corpuscular Volume 86.6 fL (80.0-98.0); Mean Platelet Volume 9.3 fL (9.4-12.3); Monocytes Absolute Auto 0.4 X10*3/uL (0.1-1.2); Monocytes Percent Auto 6.1 % (2-11); Neutrophils Absolute Auto 2.6 x10*3/uL (2.0-8.3); Neutrophils Percent Auto 45.7 % (45-73); Platelet Count 255 X10*3/uL (160-400); Red Blood Count 4.61 X10*6/uL (4.20-5.50); Red Cell Distribution Width 12.2 % (11.0-16.0); White Blood Count 5.7 X10*3/uL (4.8-10.8)
[2022-12-04 12:42] LABS: Estimated Average Glucose 85 mg/dL; Hemoglobin A1c % 4.6 % (<6.0)
[2022-12-04 13:40] LABS: Anion Gap 11 (12-20); Blood Urea Nitrogen 11 mg/dL (9-16); C Reactive Protein < 0.04 mg/dL (< or = 0.50); Calcium 10.1 mg/dL (8.4-10.2); Carbon Dioxide 26 mmol/L (22-29); Chloride 106 mmol/L (96-108); Cholesterol 176 mg/dL (<200); Estimated Glomerular Filt Rate > 60; Glucose Random 80 mg/dL (60-115); HDL Cholesterol 51 mg/dL (>40); Iron 140 mcg/dL (30-160); LDL Cholesterol Calculated 105 mg/dL (<100); Percent Iron Saturation 50 % (15-50); Potassium 3.9 mmol/L (3.3-5.1); Sodium 139 mmol/L (135-145); Total Iron Binding Capacity 282 mcg/dL (228-428); Triglycerides 101 mg/dL (<150); Unsaturated Iron Binding 142 ug/dL
[2022-12-04 13:45] LABS: Ferritin 41 ng/mL (10-122); Insulin 7 uU/mL (2-29); TSH reflex Free T4 0.61 uIU/mL (0.32-4.0); Vitamin D 25-OH Total 56.2 ng/mL (>30)
[2022-12-04 13:52] LABS: Vitamin B12 931 pg/mL (200-900)
[2022-12-05 18:08] LABS: PTHI 31 pg/mL (16-77)
[2022-12-07 17:03] LABS: Zinc 64 mcg/dL (60-130)
[2022-12-08 05:08] LABS: Vitamin A 44 mcg/dL (38-98)
[2022-12-08 15:53] LABS: Vitamin B1 27 nmol/L (8-30)
== END 2022-12-04 11:11 | disposition home or self-care (01) ==
LOC: HO.LAB 11:10
PROVIDERS: PCP Internal Medicine; Visit Provider Physician Assistant Surgical
DX: I95.9 Hypotension, unspecified (principal); E03.9 Hypothyroidism, unspecified; E55.9 Vitamin D deficiency, unspecified; Z98.84 Bariatric surgery status
CPT/HCPCS: 36415; 80048; 80061; 82306; 82607; 82728; 82746; 83036; 83525; 83540; 83970; 84425; 84443; 84590; 84630; 85025; 86140

== ENCOUNTER 2023-01-01 16:00 | Outpatient (AMB) | payer OTHER, SELFPAY ==
--- NOTE | 2023-01-01 15:28 | A.OFFVIS_ITS ---
Intake VS Expanded 01/01/23 16:03 Height 5 ft 3 in Weight 138 lb BMI 24.4 Intake Visit Reasons: VIDEO PO LSG 12/13/21 Allergies azithromycin Allergy (Severe, Verified 11/28/22 16:30) throat swelling AZO [facility] Allergy (Severe, Uncoded 08/04/22 13:18) THROAT SWELLING HPI HPI Comments History of Present Illness Details Pleasant 32-year-old female, status post sleeve gastrectomy on 12/13/2021. This is approximately 1 year, 3 week postoperative. She had gotten her yearly labs after last visit and there were no sig deficiencies. Initial weight 228 # Preop weight 207# weight at 5 WKS PO 183# weight at 3 MO 167 Weight at 4 MO 159# weight at 5 MO PO 154# current weight at 1 year PO 138# 90 pound weight loss since starting the program(39.4 % TBWL) and 69 pounds down since surgery or 33 % TBWL. She states that she has noticed a rash occurring underneath the abdominal skin, above the pubic region. This rash occurs perhaps 5-6 times per month lasting anywhere between 2 days to 7 days. She has noticed pain when the rash occurs and it is quite itchy. There is also an odor with the rash. She has to shower 2-3 times per day when the rash occurs to maintain hygiene. The extra skin causes pain when bending to tie her shoes or put on socks and this is worse when she has the recurrent rash as she experiences it like a cut . The rash does improve with A and D ointment treatment but only to recur. Meal plan: shake Orgain, 2 scoops in 8 oz almond milk, 2 hours another shake, 2 hours slovak yogurt meal 4 forks protein and 4 forks veg, 30-40 minutes Drinking 60 oz water daily Exercise plan: treadmill, walking, bike, elliptical, weights. has a gym in her home. 6 days per week, 1-2 hours cardio 6 days per week. [facility] Medical History Scoliosis Hypothyroidism BMI 36.0-36.9,adult Cervical lymphadenopathy Obesity Transaminitis Cough Eric's disease Vitamin D deficiency Eric's disease Goiter Difficulty swallowing Tonsillitis GERD (gastroesophageal reflux disease) Migraines No known health problems Surgical History Status post laparoscopic sleeve gastrectomy History of sleeve gastrectomy Hx of tonsillectomy History of cervical cerclage History of tubal ligation History of cholecystectomy Family History Father High cholesterol Liver failure Hypertension Lung disease Mother Diabetes Hypertension Cervical cancer Hypothyroidism Sister Lupus anticoagulant disorder Maternal Grandmother CVD (cardiovascular disease) Maternal Grandfather Diabetes CVD (cardiovascular disease) Paternal Uncle Colon cancer Maternal Aunt Graves disease Housing: Apartment Housing Other:: [facility] Are you a primary intensive care ambulance paramedic to a significant other at home: Yes (children, mother will be there after surgery) Do you presently have visiting nurse or other home services: No Alcohol intake: never Patient Tobacco Use Status: Never used Tobacco e-Cigarette/Vaping Use: Never Used Second Hand Smoke Exposure: No service: No Current occupational status: employed Current occupational exposures/hazards: No Female Reproductive History Menstrual Age of Menarche: 12 Assessment & Plan Assessment & Plan (1) Status post laparoscopic sleeve gastrectomy: Code(s): Z98.84 - Bariatric surgery status Plan: change meal plan: shake Orgain, 2 scoops in 8 oz almond milk, 2 hours another shake, 1 scoop, 2 hours slovak yogurt meal 6 forks protein and 6 forks veg, 30-40 minutes Track calories with her exercise. Will refer to RD in about 3 weeks then me in about 3-4 weeks after that. Text with any issues especially if rash recurs Encouraged to have a fabric barrier between skin folds. Once stable weight and 18 months post op consider skin removal surgery. If persistent problem despite application of antifungals, may need medically necessary skin removal sooner. Medications: Refilled pantoprazole 40 mg PO DAILY 90 days 90 tabs 2RF Quality Reporting (2019) Adult ([facility] ) Smoking risk assessment performed?: Yes Patient Tobacco Use Status: Never used Tobacco Telehealth Telehealth Location of provider rendering services: practice address Location of patient: address on file Patient Identification confirmed using: Name, : Yes Telehealth method: voice only Patient verbally consented to treatment: Yes Patient verbally consented to billing insurance company: Yes Patient informed of any privacy concerns related to visit: Yes Minutes spent on Phone/Video with Pt.: 20 Coding Level of Care Code Tele Est Pt Level 3 (12821) Diagnoses Status post laparoscopic sleeve gastrectomy Z98.84 Time Spent (min) 20
[2023-01-01 16:03] VITALS: BMI 24.4
== END 2023-01-01 16:30 | disposition home or self-care (01) ==
LOC: HO.HBS 01-02 08:32
PROVIDERS: PCP Internal Medicine; Visit Provider Physician Assistant Surgical
DX: E66.3 Overweight (principal); Z68.24 Body mass index [BMI] 24.0-24.9, adult
CPT/HCPCS: 99213

== ENCOUNTER → 2023-01-01 16:00 | Outpatient (BNVA) | payer OTHER, SELFPAY | PROVIDERS: PCP Internal Medicine; Visit Provider Physician Assistant Surgical | DX: Z98.84 Bariatric surgery status (principal) ==

== ENCOUNTER 2023-01-22 15:59 | Outpatient (AMB) | payer OTHER, SELFPAY ==
--- NOTE | 2023-01-22 15:48 | MHC.AMNUTRGE ---
Intake Intake Visit Reasons: VIDEO PO LSG 12/13/21 Allergies azithromycin Allergy (Severe, Verified 11/28/22 16:30) throat swelling AZO CRANBERRY URINARY TRACT HEALTH Allergy (Severe, Uncoded 08/04/22 13:18) THROAT SWELLING HPI Nutrition Presentation Details LSG 12/13/21 Preop weight 207# weight at 5 WKS PO 183# weight at 3 MO 167 Weight at 4 MO 159# weight at 5 MO PO 154# weight at 11 MO PO 134# current weight at 13 MO PO 138 interested in skin removal Reason for consult other (weight maintenance ) Diet Assmnt Details Pt reports her sons appendix ruptured and became very illl. was hospitalized in [place] for 2 weeks. she didn't have her shakes, ate the food provided in the hospital. Pt now seeing Norm JOHNSON. Is is now following the below plan : 2 Orgain 2 scoops shakes with almond milk czech yogurt or cottage cheese dinner: 2 eggs or 2oz protein with vegetable Pt asking if she can do an all liquid diet to lose 4# but I strongly advised against it and educated why Exercise: Has a gym at home , is doing some weight training. 1 hour every day. stopped when her son became hospitalized. Taking celebrate MVI, putting in her shakes and tolerating well. calcium once daily hydration: adequate Diagnosis Nutrition problem #1 overweight/obesity As related to (etiology) #1 excess energy intake and physical inactivity As evidenced by (sign/symptom) #1 high BMI (resolving) Monitoring/Goals Nutrition problem monitoring total energy intake, level of knowledge/skill, total PRO intake, total CHO intake and weight Outcome progress progressing Learning/Education Readiness to learn excellent Stages of change action Most Recent Diabetes Results: Cholesterol 176 mg/dL (<200) 12/04/22 HDL Cholesterol 51 mg/dL (>40) 12/04/22 Triglycerides 101 mg/dL (<150) 12/04/22 Creatinine 0.69 mg/dL (0.5-1.4) 12/04/22 Blood Urea Nitrogen 11 mg/dL (9-16) 12/04/22 Sodium 139 mmol/L (135-145) 12/04/22 Potassium 3.9 mmol/L (3.3-5.1) 12/04/22 Chloride 106 mmol/L (96-108) 12/04/22 Carbon Dioxide 26 mmol/L (22-29) 12/04/22 Calcium 10.1 mg/dL (8.4-10.2) 12/04/22 [facility] Medical History Scoliosis Hypothyroidism BMI 36.0-36.9,adult Cervical lymphadenopathy Obesity Transaminitis Cough Eric's disease Vitamin D deficiency Eric's disease Goiter Difficulty swallowing Tonsillitis GERD (gastroesophageal reflux disease) Migraines No known health problems Surgical History Status post laparoscopic sleeve gastrectomy History of sleeve gastrectomy Hx of tonsillectomy History of cervical cerclage History of tubal ligation History of cholecystectomy Family History Father High cholesterol Liver failure Hypertension Lung disease Mother Diabetes Hypertension Cervical cancer Hypothyroidism Sister Lupus anticoagulant disorder Maternal Grandmother CVD (cardiovascular disease) Maternal Grandfather Diabetes CVD (cardiovascular disease) Paternal Uncle Colon cancer Maternal Aunt Graves disease Social History Housing: Apartment Housing Other:: [facility] Are you a primary career development coordinator/teacher to a significant other at home: Yes (children, mother will be there after surgery) Do you presently have visiting nurse or other home services: No Alcohol intake: never Patient Tobacco Use Status: Never used Tobacco e-Cigarette/Vaping Use: Never Used Second Hand Smoke Exposure: No service: No Current occupational status: employed Current occupational exposures/hazards: No Female Reproductive History Menstrual Age of Menarche: 12 Assessment & Plan Assessment & Plan (1) History of sleeve gastrectomy: Code(s): Z90.3 - Acquired absence of stomach [part of] Plan continue f/u with PA and encouraged communication as needed Telehealth Telehealth Location of provider rendering services: practice address Location of patient: address on file Patient Identification confirmed using: Name, : Yes Telehealth method: voice only Patient verbally consented to treatment: Yes Patient verbally consented to billing insurance company: Yes Patient informed of any privacy concerns related to visit: Yes Minutes spent on Phone/Video with Pt.: 20 Coding Level of Care Code Nutr Indiv Subseq ([id number]) Diagnoses History of sleeve gastrectomy Z90.3 Time Spent (min) 20
== END 2023-01-22 16:00 | disposition home or self-care (01) ==
LOC: HO.HBS 15:59
PROVIDERS: PCP Internal Medicine; Visit Provider Dietitian, Registered
DX: Z90.3 Acquired absence of stomach [part of] (principal)

== ENCOUNTER → 2023-01-22 15:59 | Outpatient (BNVA) | payer OTHER, SELFPAY | PROVIDERS: PCP Internal Medicine; Visit Provider Dietitian, Registered | DX: Z90.3 Acquired absence of stomach [part of] (principal) | CPT/HCPCS: 97803 ==

== ENCOUNTER 2023-04-04 15:23 | Outpatient (AMB) | payer OTHER, SELFPAY ==
--- NOTE | 2023-04-04 11:17 | MHC.OFFVISWM ---
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: No Allergies azithromycin Allergy (Severe, Verified 11/28/22 16:30) throat swelling AZO CRANBERRY URINARY TRACT HEALTH Allergy (Severe, Uncoded 08/04/22 13:18) THROAT SWELLING Medication List - Last Reconciled 04/04/23 by ALEX Bradley bisacodyl (Laxative (bisacodyl)) 10 mg (2 x 5 mg) PO BEDTIME [celebrate calcium PO DAILY] [celebrate multivitamin PO DAILY] clotrimazole 1% (Antifungal (clotrimazole)) 1 appl topical BID [colace 100 mg PO DAILY] pantoprazole 40 mg PO DAILY 90 days HPI HPI Comments History of Present Illness Details Pleasant 32-year-old female, status post sleeve gastrectomy on 12/13/2021. This is approximately 1 year, 4 months postoperative. Weight today is 141.2 with a BMI of 25. Initial weight 228 # Preop weight 207# weight at 5 WKS PO 183# weight at 3 MO 167 Weight at 4 MO 159# weight at 5 MO PO 154# weight at 1 year PO 138# 86.8 pound weight loss since starting the program(38 % TBWL) and 65.8 pounds down since surgery or 31.7 % TBWL. She states that she has noticed a rash occurring underneath the abdominal skin, above the pubic region. This rash occurs perhaps 5-6 times per month lasting anywhere between 2 days to 7 days. She has noticed pain when the rash occurs and it is quite itchy. There is also an odor with the rash. She has to shower 2-3 times per day when the rash occurs to maintain hygiene. The extra skin causes pain when bending to tie her shoes or put on socks and this is worse when she has the recurrent rash as she experiences it like a cut . The rash does improve with A and D ointment treatment and the prescription antifungal but only to recur. 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 Her school year ends in late July and she would like to possibly have the surgery then. Meal plan: shake Orgain, 2 scoops in 8 oz almond milk, 2 hours another shake, 1 scoop, 2 hours belarusian yogurt meal 6 forks protein and 6 forks veg, 30-40 minutes Drinking 60 oz water daily Exercise plan: treadmill, elliptical, weights, rowing. has a gym in her home. 5 days per week, 1.5 hours PFSH Medical History Scoliosis Hypothyroidism BMI 36.0-36.9,adult Cervical lymphadenopathy Obesity Transaminitis Cough Eric's disease Vitamin D deficiency Eric's disease Goiter Difficulty swallowing Tonsillitis GERD (gastroesophageal reflux disease) Migraines No known health problems Surgical History Status post laparoscopic sleeve gastrectomy History of sleeve gastrectomy Hx of tonsillectomy History of cervical cerclage History of tubal ligation History of cholecystectomy Family History Father High cholesterol Liver failure Hypertension Lung disease Mother Diabetes Hypertension Cervical cancer Hypothyroidism Sister Lupus anticoagulant disorder Maternal Grandmother CVD (cardiovascular disease) Maternal Grandfather Diabetes CVD (cardiovascular disease) Paternal Uncle Colon cancer Maternal Aunt Graves disease Social History Housing: Apartment Housing Other:: [facility] Are you a primary outdoor emergency care technician to a significant other at home: Yes (children, mother will be there after surgery) Do you presently have visiting nurse or other home services: No Alcohol intake: never Patient Tobacco Use Status: Never used Tobacco e-Cigarette/Vaping Use: Never Used Second Hand Smoke Exposure: No service: No Current occupational status: employed Current occupational exposures/hazards: No Female Reproductive History Menstrual Age of Menarche: 12 Assessment & Plan Assessment & Plan (1) Status post laparoscopic sleeve gastrectomy: Code(s): Z98.84 - Bariatric surgery status Plan: She will continue her current meal plan. Continue exercise plan although potentially increase to 6 days per week. We discussed changing the batteries in her machine so she can track her calories for accurate data. She will text with any questions or concerns. We will have her return to the office for her 18 month follow-up. We will check labs at that time. She will text with any questions or concerns. (2) Excess skin: Code(s): L98.7 - Excessive and redundant skin and subcutaneous tissue Plan: Continue with as needed clotrimazole, clothing barrier, hygiene, and monitoring for any worsening infection. She will call or text with any issues. She certainly is in need of medically necessary skin removal surgery and we will consider submission for this at her 18 month postoperative follow-up visit. Quality Reporting (2019) Adult ([facility] 138/03/29/68) Smoking risk assessment performed?: Yes Patient Tobacco Use Status: Never used Tobacco Telehealth Telehealth Location of provider rendering services: practice address Location of patient: address on file Patient Identification confirmed using: Name, : Yes Telehealth method: voice only Patient verbally consented to treatment: Yes Patient verbally consented to billing insurance company: Yes Patient informed of any privacy concerns related to visit: Yes Minutes spent on Phone/Video with Pt.: 15 Coding Level of Care Code Tele Est Pt Level 3 (75935) Diagnoses Status post laparoscopic sleeve gastrectomy Z98.84 Excess skin L98.7 Time Spent (min) 20
[2023-04-04 11:18] VITALS: BMI 25.0
== END 2023-04-04 15:28 | disposition home or self-care (01) ==
LOC: HO.HBS 15:24
PROVIDERS: PCP Internal Medicine; Visit Provider Physician Assistant Surgical
DX: L98.7 Excessive and redundant skin and subcutaneous tissue (principal); Z90.3 Acquired absence of stomach [part of]; Z98.84 Bariatric surgery status
CPT/HCPCS: 99212

== ENCOUNTER → 2023-04-04 15:23 | Outpatient (BNVA) | payer OTHER, SELFPAY | PROVIDERS: PCP Internal Medicine; Visit Provider Physician Assistant Surgical ==

== ENCOUNTER 2023-04-12 17:29 | Emergency (ER) | payer OTHER, SELFPAY ==
[2023-04-12 17:36] VITALS: BP 124/79; PULSE 93; RESP 14; TEMP 36.7; O2SAT 100; BMI 26.0
--- NOTE | 2023-04-12 17:37 | ED_ITS ---
HPI - General Adult General Chief complaint: Allergic Reaction Stated complaint: ? allergic reaction,throat numb,rash Related Data Home Medications Medication Instructions Recorded Confirmed celebrate multivitamin PO DAILY 01/10/22 04/04/23 colace 100 mg PO DAILY 01/11/22 04/04/23 celebrate calcium PO DAILY 07/18/22 04/04/23 Previous Rx's Medication Instructions Recorded clotrimazole 1 % topical cream 1 appl topical BID #45 grams 12/04/22 (Antifungal (clotrimazole)) pantoprazole 40 mg tablet,delayed 40 mg PO DAILY 90 days #90 tabs 01/01/23 release bisacodyl 5 mg tablet,delayed 10 mg (2 x 5 mg) PO BEDTIME #180 03/15/23 release (Laxative (bisacodyl)) tabs Allergies Allergy/AdvReac Type Severity Reaction Status Date / Time azithromycin Allergy Severe throat Verified 11/28/22 16:30 swelling AZO CRANBERRY URINARY TRACT Allergy Severe THROAT Uncoded 08/04/22 13:18 HEALTH SWELLING PMFSH Past Medical History Medical History Scoliosis Hypothyroidism BMI 36.0-36.9,adult Cervical lymphadenopathy Obesity Transaminitis Cough Eric's disease Vitamin D deficiency Eric's disease Goiter Difficulty swallowing Tonsillitis GERD (gastroesophageal reflux disease) Migraines No known health problems Surgical History Status post laparoscopic sleeve gastrectomy History of sleeve gastrectomy Hx of tonsillectomy History of cervical cerclage History of tubal ligation History of cholecystectomy Family History Family History Father High cholesterol Liver failure Hypertension Lung disease Mother Diabetes Hypertension Cervical cancer Hypothyroidism Sister Lupus anticoagulant disorder Maternal Grandmother CVD (cardiovascular disease) Maternal Grandfather Diabetes CVD (cardiovascular disease) Paternal Uncle Colon cancer Maternal Aunt Graves disease Social History Social History Housing: Apartment Housing Other:: [facility] Are you a primary child care worker to a significant other at home: Yes (children, mother will be there after surgery) Do you presently have visiting nurse or other home services: No Alcohol intake: never Patient Tobacco Use Status: Never used Tobacco e-Cigarette/Vaping Use: Never Used Second Hand Smoke Exposure: No Advance Directives: No Advance Directives Information Provided: No service: No Current occupational status: employed Current occupational exposures/hazards: No Physical Exam ED Vital Signs: BMI result Body Mass Index 26.0 Course Course Course Narrative: This is a rapid medical exam: Additional HPI, ROS, PE not included below will be deferred to primary provider. Patient is a 32-year-old female with history of laproscopic sleeve gastrectomy, HENSON, hypothyroidism, migraines presenting to the ED with complaint of redness to chest and then 10 minutes later felt tightness and numbness in throat starting at 5pm. She last ate at 2pm, states did not eat anything out of the ordinary. Did not take any medications prior to arrival. Patient speaking easily in full sentences and managing secretions without difficulty in triage. No angioedema, no uvula edema, lungs CTA. No urticaria appreciated. Discharge Plan Discharge Clinical Impression: Allergic reaction Patient Disposition: Left W/O Completing Treatment Prescriptions: No Action clotrimazole [Antifungal (clotrimazole)] 1 % cream 1 appl topical BID Qty: 45 2RF bisacodyl [Laxative (bisacodyl)] 5 mg tablet,delayed release (DR/EC) 10 mg PO BEDTIME Qty: 180 2RF celebrate multivitamin capsule PO DAILY celebrate calcium PO DAILY colace 100 mg PO DAILY pantoprazole 40 mg tablet,delayed release (DR/EC) 40 mg PO DAILY 90 Days Qty: 90 2RF Discharge Date/Time: 04/12/23 20:08
--- NOTE | 2023-04-12 20:08 | PC.NURSE ---
x3 call outs; pt not present in waiting room.
== END 2023-04-12 20:08 | disposition left against medical advice (07) ==
LOC: HO.ED 20:02
PROVIDERS: Emergency Provider Emergency Medicine; PCP Internal Medicine
DX: L50.0 Allergic urticaria (principal)
CPT/HCPCS: 99281

== ENCOUNTER 2023-07-18 15:46 | Outpatient (AMB) | payer OTHER, SELFPAY ==
--- NOTE | 2023-07-18 14:15 | A.OFFVIS_ITS ---
VS Expanded 07/18/23 14:16 Height 5 ft 2 in Weight 149 lb 3.2 oz BMI 27.3 Body Fat % 30.9 Body Fat Mass 46.1 Fat Free Mass 103.2 Visceral Fat Rating 9 Body Water % 47.5 Body Water Mass 70.8 Muscle Mass/Score 96.8 Intake Visit Reasons: tele PO LSG 12/13/21 Allergies azithromycin Allergy (Severe, Verified 11/28/22 16:30) throat swelling AZO CRANBERRY URINARY TRACT HEALTH Allergy (Severe, Uncoded 08/04/22 13:18) THROAT SWELLING HPI Comments Details: Alaina 32-year-old female, status post sleeve gastrectomy on 12/13/2021. This is approximately 1 year, 8 months postoperative. Initial weight 228 # Preop weight 207# weight at 5 WKS PO 183# weight at 3 MO 167 Weight at 4 MO 159# weight at 5 MO PO 154# weight at 1 year PO 138# Weight today is 149.2 with a BMI of 27.3. 78.8 pound weight loss since starting the program (34.5 % TBWL) and 57.8 pounds down since surgery or 27.9 % TBWL. She states that she has noticed a rash occurring underneath the abdominal skin, above the pubic region. This rash occurs perhaps 5-6 times per month lasting anywhere between 2 days to 7 days. She has noticed pain when the rash occurs and it is quite itchy. There is also an odor with the rash. She has to shower 2-3 times per day when the rash occurs to maintain hygiene. The extra skin causes pain when bending to tie her shoes or put on socks and this is worse when she has the recurrent rash as she experiences it like a cut . The rash does improve with A and D ointment treatment and the prescription antifungal but only to recur. She does not feel well as she has had an increase in weight. She changed the milk to 2% milk. This was done without my knowledge. She states she has been eating with fear and she has been getting a sharp pain in the middle of her stomach, the last time was afer eating grilled chicken w celery and a homemade ranch dressing w yogurt. She has had solids since that experience she has had chicken and broccoli and chicken w tomato without any recurrence of the pain. Meal plan: shake Orgain, 2 scoops in 8 oz almond milk, 2 hours another shake, 1 scoop, 2 hours cypriot yogurt meal 6 forks protein and 6 forks veg, 30-40 minutes Drinking 60 oz water daily Exercise plan: not exercising for 10-14 days. working late. Just started yesterday. treadmill, elliptical, weights, rowing. has a gym in her home. 5 days per week, 1.5 hours PFSH Medical History Scoliosis Hypothyroidism BMI 36.0-36.9,adult Cervical lymphadenopathy Obesity Transaminitis Cough Eric's disease Vitamin D deficiency Eric's disease Goiter Difficulty swallowing Tonsillitis GERD (gastroesophageal reflux disease) Migraines No known health problems Surgical History Status post laparoscopic sleeve gastrectomy History of sleeve gastrectomy Hx of tonsillectomy History of cervical cerclage History of tubal ligation History of cholecystectomy Family History Father High cholesterol Liver failure Hypertension Lung disease Mother Diabetes Hypertension Cervical cancer Hypothyroidism Sister Lupus anticoagulant disorder Maternal Grandmother CVD (cardiovascular disease) Maternal Grandfather Diabetes CVD (cardiovascular disease) Paternal Uncle Colon cancer Maternal Aunt Graves disease Social History Housing: Apartment Housing Other:: [facility] Are you a primary skin care specialist to a significant other at home: Yes (children, mother will be there after surgery) Do you presently have visiting nurse or other home services: No Alcohol intake: never Patient Tobacco Use Status: Never used Tobacco e-Cigarette/Vaping Use: Never Used Second Hand Smoke Exposure: No service: No Current occupational status: employed Current occupational exposures/hazards: No Female Reproductive History Menstrual Age of Menarche: 12 Quality Reporting (2020) Adult ([facility] 138/03/29/68) Smoking risk assessment performed?: Yes Patient Tobacco Use Status: Never used Tobacco Telehealth Telehealth Telehealth Platform: Telephone Location of provider rendering services: practice address Location of patient: address on file Patient Identification confirmed using: Name, : Yes Telehealth method: voice only Patient verbally consented to treatment: Yes Patient verbally consented to billing insurance company: Yes Patient informed of any privacy concerns related to visit: Yes Minutes spent on Phone/Video with Pt.: 15 Assessment & Plan Assessment & Plan (1) Status post laparoscopic sleeve gastrectomy: Code(s): Z98.84 - Bariatric surgery status Category: Medical Plan: Patient will go back to using unsweetened almond milk. Recommend return to daily exercise. Text with any questions or concerns. Text weight weekly. Return to clinic 1 month.
[2023-07-18 14:16] VITALS: BMI 27.3
== END 2023-07-18 15:49 | disposition home or self-care (01) ==
LOC: HO.HBS 15:46
PROVIDERS: PCP Internal Medicine; Visit Provider Physician Assistant Surgical
DX: E66.3 Overweight (principal); Z68.27 Body mass index [BMI] 27.0-27.9, adult; Z90.3 Acquired absence of stomach [part of]; Z98.84 Bariatric surgery status
CPT/HCPCS: 99213

== ENCOUNTER → 2023-07-18 15:46 | Outpatient (BNVA) | payer OTHER, SELFPAY | PROVIDERS: PCP Internal Medicine; Visit Provider Physician Assistant Surgical | DX: Z98.84 Bariatric surgery status (principal) ==

== ENCOUNTER 2023-08-29 16:03 | Outpatient (AMB) | payer OTHER, SELFPAY ==
--- NOTE | 2023-08-29 16:05 | MHC.OFFVISWM ---
VS Expanded 08/29/23 16:10 BP 109/67 Blood Pressure Location Rt brachial Blood Pressure Position Sitting Pulse 87 Pulse Source Pulse Oximeter Temp 97.7 F Temperature Source Tympanic Pulse Oximetry 97 Oxygen Delivery Method Room Air Height 5 ft 2 in Weight 147 lb 11.2 oz BMI 27.0 Body Fat % 33.7 Body Fat Mass 49.6 Fat Free Mass 97.6 Visceral Fat Rating 5.0 Body Water % 47.6 Body Water Mass 70.2 Muscle Mass/Score 92.6 Basal Metabolic Rate/Score 1,357 Intake Visit Reasons: ov PO LSG 12/13/21 Allergies azithromycin Allergy (Severe, Verified 08/29/23 16:12) throat swelling AZO CRANBERRY URINARY TRACT HEALTH Allergy (Severe, Uncoded 08/29/23 16:12) THROAT SWELLING HPI Comments Details: Alaina 32-year-old female, status post sleeve gastrectomy on 12/13/2021. This is approximately 1 year, 8 months postoperative. Initial weight 228 # Preop weight 207# weight at 5 WKS PO 183# weight at 3 MO 167 Weight at 4 MO 159# weight at 5 MO PO 154# weight at 1 year PO 138# Weight today is 147.4 with a BMI of 27. 80.6 pound weight loss since starting the program (35.3 % TBWL) and 59.6 pounds down since surgery or 28.7 % TBWL. She states that she is generally doing well although would like to lose a little bit more weight. Meal plan: shake Orgain, 2 scoops in 8 oz unsweetened almond milk, 2 hours another shake, 1 scoop, 2 hours angolan yogurt meal 7 forks protein and 7 forks veg, 30-40 minutes Drinking 60 oz water daily Exercise plan: treadmill 1 hour daily speed 2.?, not tracking calories PFSH Medical History Scoliosis Hypothyroidism BMI 36.0-36.9,adult Cervical lymphadenopathy Obesity Transaminitis Cough Eric's disease Vitamin D deficiency Eric's disease Goiter Difficulty swallowing Tonsillitis GERD (gastroesophageal reflux disease) Migraines No known health problems Surgical History Status post laparoscopic sleeve gastrectomy History of sleeve gastrectomy Hx of tonsillectomy History of cervical cerclage History of tubal ligation History of cholecystectomy Family History Father High cholesterol Liver failure Hypertension Lung disease Mother Diabetes Hypertension Cervical cancer Hypothyroidism Sister Lupus anticoagulant disorder Maternal Grandmother CVD (cardiovascular disease) Maternal Grandfather Diabetes CVD (cardiovascular disease) Paternal Uncle Colon cancer Maternal Aunt Graves disease Social History Housing: Apartment Housing Other:: [facility] Are you a primary intensive care ambulance paramedic to a significant other at home: Yes (children, mother will be there after surgery) Do you presently have visiting nurse or other home services: No Alcohol intake: never Patient Tobacco Use Status: Never used Tobacco e-Cigarette/Vaping Use: Never Used Second Hand Smoke Exposure: No service: No Current occupational status: employed Current occupational exposures/hazards: No Female Reproductive History Menstrual Age of Menarche: 12 Physical Exam Vital Signs: Last Vital Signs Temp 97.7 F 08/29/23 16:10 Pulse 87 08/29/23 16:10 BP 109/67 08/29/23 16:10 Pulse Ox 97 08/29/23 16:10 Oxygen Delivery Method Room Air 08/29/23 16:10 BMI result Body Mass Index 27.0 Const General: healthy appearing and no acute distress Resp Effort & Inspection: normal respiratory effort Auscultation: clear to auscultation bilaterally Cardio Rate: regular rate Rhythm: regular rhythm GI Auscultation: normal bowel sounds Extrem General: Yes normal to inspection Quality Reporting (2019) Adult ([facility] 138//) Smoking risk assessment performed?: Yes Patient Tobacco Use Status: Never used Tobacco Assessment & Plan Assessment & Plan (1) Overweight with body mass index (BMI) 25.0-29.9: Comment: Patient had gastric sleeve surgery December 2021 and is continuing in her weight loss journey and has been losing weight. Code(s): E66.3 - Overweight Category: Medical Plan: change meal plan slightly: shake Orgain, 1 scoop in 8 oz unsweetened almond milk, 2 hours another shake, 1 scoop, 2 hours angolan yogurt meal 7 forks protein and 7 forks veg, 30-40 minutes Encouraged to change the batteries in her treadmill so that she can track calories. Encouraged to increase her speed and increase incline to achieve a goal of burning 300 calories per day. She certainly may incorporate weight training, prior to cardio. Plan for return to clinic in 4-6 weeks
[2023-08-29 16:10] VITALS: BP 109/67; PULSE 87; TEMP 36.5; O2SAT 97; BMI 27.0
== END 2023-08-29 16:30 | disposition home or self-care (01) ==
PROVIDERS: PCP Internal Medicine; Visit Provider Physician Assistant Surgical
DX: E66.3 Overweight (principal); Z68.27 Body mass index [BMI] 27.0-27.9, adult
CPT/HCPCS: 99213

== ENCOUNTER → 2023-08-29 16:03 | Outpatient (BNVA) | payer OTHER, SELFPAY | PROVIDERS: PCP Internal Medicine; Visit Provider Physician Assistant Surgical | DX: E66.3 Overweight (principal); Z71.3 Dietary counseling and surveillance; Z98.84 Bariatric surgery status; Z68.27 Body mass index [BMI] 27.0-27.9, adult | CPT/HCPCS: 99212 ==

== ENCOUNTER 2023-09-24 11:20 | Outpatient (AMB) | payer OTHER, SELFPAY ==
--- NOTE | 2023-09-24 10:41 | A.OFFVIS_ITS ---
VS Expanded 09/24/23 10:42 Height 5 ft 2 in Weight 148 lb 2 oz BMI 27.1 Body Fat % 30.6 Body Fat Mass 45.3 Fat Free Mass 102.8 Visceral Fat Rating 9 Body Water % 47.6 Body Water Mass 70.5 Muscle Mass/Score 96.6 Basal Metabolic Rate/Score 1,377 Intake Visit Reasons: (tv) PO LSG 12/13/21 Investigation Division Captain Required: No Allergies azithromycin Allergy (Severe, Verified 08/29/23 16:12) throat swelling [facility] Allergy (Severe, Uncoded 08/29/23 16:12) THROAT SWELLING Medication List - Last Reconciled 09/24/23 by ALEX Bradley bisacodyl (Dulcolax (bisacodyl)) 5 mg PO BEDTIME 90 days pantoprazole 40 mg PO DAILY 90 days HPI Comments Details: Pleasant 32-year-old female, status post sleeve gastrectomy on 12/13/2021. This is approximately 1 year, 9 months postoperative. Initial weight 228 # Preop weight 207# Weight today is 148.2 with a BMI of 27. 79.8 pound weight loss since starting the program (35 % TBWL) and 58.8 pounds down since surgery or 28.4 % TBWL. She states that she has been feeling tired. She also is noticing easy bruisability. She feels stuck at her current weight, taking celebrate mvi w iron, although complains of some constipation previously resolved with Dulcolax tablets Meal plan: shake Orgain, 1 scoop in 8 oz unsweetened almond milk, 2 hours another shake, 1 scoop, 2 hours english yogurt meal 7 forks protein and 7 forks veg, 30-40 minutes Drinking 60 oz water daily Exercise plan: She is currently having work done in the basement and she is limited 1 week left, been there all summer. treadmill 1 hour daily speed 2.?, not tracking calories, 3 x per week [facility] Medical History Scoliosis Hypothyroidism BMI 36.0-36.9,adult Cervical lymphadenopathy Obesity Transaminitis Cough Eric's disease Vitamin D deficiency Eric's disease Goiter Difficulty swallowing Tonsillitis GERD (gastroesophageal reflux disease) Migraines No known health problems Surgical History Status post laparoscopic sleeve gastrectomy History of sleeve gastrectomy Hx of tonsillectomy History of cervical cerclage History of tubal ligation History of cholecystectomy Family History Father High cholesterol Liver failure Hypertension Lung disease Mother Diabetes Hypertension Cervical cancer Hypothyroidism Sister Lupus anticoagulant disorder Maternal Grandmother CVD (cardiovascular disease) Maternal Grandfather Diabetes CVD (cardiovascular disease) Paternal Uncle Colon cancer Maternal Aunt Graves disease Social History Housing: Apartment Housing Other:: [facility] Are you a primary rn critical care to a significant other at home: Yes (children, mother will be there after surgery) Do you presently have visiting nurse or other home services: No Alcohol intake: never Patient Tobacco Use Status: Never used Tobacco e-Cigarette/Vaping Use: Never Used Second Hand Smoke Exposure: No service: No Current occupational status: employed Current occupational exposures/hazards: No Female Reproductive History Menstrual Age of Menarche: 12 Quality Reporting (2019) Adult ([facility] [address]803/29/68) Smoking risk assessment performed?: Yes Patient Tobacco Use Status: Never used Tobacco Telehealth Telehealth Telehealth Platform: Telephone Location of provider rendering services: practice address Location of patient: address on file Patient Identification confirmed using: Name, : Yes Telehealth method: voice only Patient verbally consented to treatment: Yes Patient verbally consented to billing insurance company: Yes Patient informed of any privacy concerns related to visit: Yes Minutes spent on Phone/Video with Pt.: 15 Assessment & Plan Assessment & Plan (1) Status post laparoscopic sleeve gastrectomy: Code(s): Z98.84 - Bariatric surgery status Category: Surgical Plan: Given complaints of fatigue and easy bruisability, we will check lab data. Continue current meal plan. Once the construction finishes in her basement which she states should be done this week, she may resume her exercise. Discussed using the treadmill, speed 2.8, incline 028, goal of 300 calories burned daily. Return to clinic 1 month. (2) Constipation: Code(s): K59.00 - Constipation, unspecified Category: Medical Qualifiers: Constipation type: unspecified constipation type Qualified Code(s): K59.00 - Constipation, unspecified Plan: Refill Dulcolax Orders: Orders Insulin Today E03.9 - Hypothyroidism, unspecified, I95.9 - Hypotension, unspecified, R53.83 - Other fatigue, Z98.84 - Bariatric surgery status Complete Blood Count Auto Diff Today E03.9 - Hypothyroidism, unspecified, I95.9 - Hypotension, unspecified, R53.83 - Other fatigue, Z98.84 - Bariatric surgery status IRON PROFILE Today E03.9 - Hypothyroidism, unspecified, I95.9 - Hypotension, unspecified, R53.83 - Other fatigue, Z98.84 - Bariatric surgery status C Reactive Protein Today E03.9 - Hypothyroidism, unspecified, I95.9 - Hypotension, unspecified, R53.83 - Other fatigue, Z98.84 - Bariatric surgery status Vitamin D 25-OH Total Today E03.9 - Hypothyroidism, unspecified, I95.9 - Hypotension, unspecified, R53.83 - Other fatigue, Z98.84 - Bariatric surgery status Hemoglobin A1c Today E03.9 - Hypothyroidism, unspecified, I95.9 - Hypotension, unspecified, R53.83 - Other fatigue, Z98.84 - Bariatric surgery status Lipid Panel Today E03.9 - Hypothyroidism, unspecified, I95.9 - Hypotension, unspecified, R53.83 - Other fatigue, Z98.84 - Bariatric surgery status Comprehensive Met. Panel Today E03.9 - Hypothyroidism, unspecified, I95.9 - Hypotension, unspecified, R53.83 - Other fatigue, Z98.84 - Bariatric surgery status Vitamin B12 and Folate Today E03.9 - Hypothyroidism, unspecified, I95.9 - Hypotension, unspecified, R53.83 - Other fatigue, Z98.84 - Bariatric surgery status Zinc Today E03.9 - Hypothyroidism, unspecified, I95.9 - Hypotension, unspe cified, R53.83 - Other fatigue, Z98.84 - Bariatric surgery status Vitamin B1 Today E03.9 - Hypothyroidism, unspecified, I95.9 - Hypotension, unspecified, R53.83 - Other fatigue, Z98.84 - Bariatric surgery status Vitamin A Today E03.9 - Hypothyroidism, unspecified, I95.9 - Hypotension, unspecified, R53.83 - Other fatigue, Z98.84 - Bariatric surgery status TSH reflex Free T4 Today E03.9 - Hypothyroidism, unspecified, I95.9 - Hypotension, unspecified, R53.83 - Other fatigue, Z98.84 - Bariatric surgery status Ferritin Today E03.9 - Hypothyroidism, unspecified, I95.9 - Hypotension, unspecified, R53.83 - Other fatigue, Z98.84 - Bariatric surgery status Medications: New bisacodyl (Dulcolax (bisacodyl)) 5 mg PO BEDTIME 90 days 90 tabs 2RF
[2023-09-24 10:42] VITALS: BMI 27.1
== END 2023-09-24 11:32 | disposition home or self-care (01) ==
LOC: HO.HBS 11:20
PROVIDERS: PCP Internal Medicine; Visit Provider Physician Assistant Surgical
DX: K59.00 Constipation, unspecified (principal); Z90.3 Acquired absence of stomach [part of]; Z98.84 Bariatric surgery status
CPT/HCPCS: 99213

== ENCOUNTER → 2023-09-24 11:20 | Outpatient (BNVA) | payer OTHER, SELFPAY | PROVIDERS: PCP Internal Medicine; Visit Provider Physician Assistant Surgical | DX: Z98.84 Bariatric surgery status (principal); R53.83 Other fatigue; I95.9 Hypotension, unspecified; E03.9 Hypothyroidism, unspecified ==

== ENCOUNTER 2023-12-28 11:03 | Outpatient (AMB) | payer OTHER, SELFPAY ==
--- NOTE | 2023-12-28 09:17 | A.OFFVIS_ITS ---
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 This is approximately 2 years postoperative. Initial weight 228 # Preop weight 207# Weight today is 163.4 with a BMI of 29.9. 64.6 pound weight loss since starting the program (28.3 % TBWL) and 43.6 pounds down since surgery or 21 % TBWL. She states that she has been feeling tired. She also is noticing easy bruisability. She feels stuck at her current weight, taking celebrate mvi w iron, although complains of some constipation previously resolved with Dulcolax tablets She never got the labs that were ordered in September. She has additionally gained 15.2 lb since September. She states she has not been able to exercise due to knee pain (R). She has not seen an ortho md Meal plan: shake Orgain, 1 scoop in 8 oz unsweetened almond milk, 2 hours another shake, 1 scoop, 2 hours polish yogurt meal 7 forks protein and 7 forks veg, 30-40 minutes Drinking 60 oz water daily Exercise plan: None in the last 6 weeks due to knee pain Any post op complications: none VANESSA: never DM: never HTN: never Hyperlipidemia: never GERD:?0-5 scale ??0 = no symptoms ??1 = symptoms noticeable but not bothersome 2 =symptoms bothersome but not daily ? 3 = symptoms bothersome and daily 4 = symptoms affect daily activities 5 = symptoms are incapacitating, unable to do daily activities ? How bad is the heartburn: 1 ? Heartburn while lying down: 0 ? Heartburn when standing up: 0 ? Heartburn after meals: 2 ? Does heartburn change your diet: 0 ? Does heartburn wake you up from sleep: 0 ? Do you have difficulty swallowin ? Do you have pain with swallowin ? If you take medicine for your reflux, does this affect your daily life: N Satisfaction with present condition - satisfied or not satisfied: Not satisfied with the extra skin, satisfied with her weight. [facility] Medical History Scoliosis Hypothyroidism BMI 36.0-36.9,adult Cervical lymphadenopathy Obesity Transaminitis Cough Eric's disease Vitamin D deficiency Eric's disease Goiter Difficulty swallowing Tonsillitis GERD (gastroesophageal reflux disease) Migraines No known health problems Surgical History Status post laparoscopic sleeve gastrectomy History of sleeve gastrectomy Hx of tonsillectomy History of cervical cerclage History of tubal ligation History of cholecystectomy Family History Father High cholesterol Liver failure Hypertension Lung disease Mother Diabetes Hypertension Cervical cancer Hypothyroidism Sister Lupus anticoagulant disorder Maternal Grandmother CVD (cardiovascular disease) Maternal Grandfather Diabetes CVD (cardiovascular disease) Paternal Uncle Colon cancer Maternal Aunt Graves disease Social History Housing: Apartment Housing Other:: [facility] Are you a primary vocational childcare teacher to a significant other at home: Yes (children, mother will be there after surgery) Do you presently have visiting nurse or other home services: No Alcohol intake: never Patient Tobacco Use Status: Never used Tobacco e-Cigarette/Vaping Use: Never Used Second Hand Smoke Exposure: No service: No Current occupational status: employed Current occupational exposures/hazards: No Female Reproductive History Menstrual Age of Menarche: 12 Quality Reporting (2020) Adult ([facility] [address]803/29/68) Smoking risk assessment performed?: Yes Patient Tobacco Use Status: Never used Tobacco Telehealth Telehealth Telehealth Platform: Telephone Location of provider rendering services: practice address Location of patient: address on file Patient Identification confirmed using: Name, : Yes Telehealth method: voice only Patient verbally consented to treatment: Yes Patient verbally consented to billing insurance company: Yes Patient informed of any privacy concerns related to visit: Yes Minutes spent on Phone/Video with Pt.: 15 Assessment & Plan Assessment & Plan (1) Status post laparoscopic sleeve gastrectomy: Code(s): Z98.84 - Bariatric surgery status Category: Surgical Plan: Discussed the importance of continuing the meal plan. Discussed the importance of getting her labs done which I had ordered in September. She did not have them done due to insurance reasons which have since been resolved. Discussed the importance of exercise which she has not been able to do due to knee pain. She states that she is going to seek referral to Orthopedics regarding her knee pain through her primary care physician. I encouraged her to go to the gym and see if an exercise such as recumbent bike can be done without any discomfort. If so that she could certainly use that as an exercise modality. Additionally, I encouraged her to go to the [facility] to see if swimming is something she would prefer to do, in which case I will give her a paper regarding discount for the yearly Phi. Have her return to the office in approximately 2 months, encouraged to text weekly with her weights and if any questions or concerns. (2) Knee pain: Code(s): M25.569 - Pain in unspecified knee Category: Medical Qualifiers: Chronicity: unspecified Laterality: right Qualified Code(s): M25.561 - Pain in right knee Plan: Encouraged patient to go to her primary care physician for referral to orthopedics.
[2023-12-28 09:19] VITALS: BMI 29.9
== END 2023-12-28 11:04 | disposition home or self-care (01) ==
LOC: HO.HBS 11:03
PROVIDERS: PCP Internal Medicine; Visit Provider Physician Assistant Surgical
DX: M25.561 Pain in right knee (principal); E66.3 Overweight; Z68.29 Body mass index [BMI] 29.0-29.9, adult; Z98.84 Bariatric surgery status
CPT/HCPCS: 99213; G2211

== ENCOUNTER 2023-12-31 11:19 | Outpatient (REF) | payer OTHER, SELFPAY ==
[2023-12-31 12:52] LABS: Basophils Percent Auto 0.5 % (0-2); Eosinophils Absolute Auto 0.4 X10*3/uL (0.0-0.4); Eosinophils Percent Auto 6.1 % (0-4); Hematocrit 38.2 % (37.0-47.0); Hemoglobin 13.1 g/dl (12.0-16.0); Imm Gran Abs Auto 0.02 X10*3/uL (0.00-0.03); Imm Gran Pct Auto 0.3 % (0.0-0.4); Lymphocytes Absolute Auto 2.2 X10*3/uL (1.2-4.9); Lymphocytes Percent Auto 34.9 % (20-40); MANUAL DIFF FLAG SCAN; Mean Corpuscular HGB Conc 34.3 g/dl (31.0-35.0); Mean Corpuscular Hemoglobin 29.8 pg (27.0-33.0); Mean Corpuscular Volume 86.8 fL (80.0-98.0); Mean Platelet Volume 9.2 fL (9.4-12.3); Monocytes Absolute Auto 0.4 X10*3/uL (0.1-1.2); Monocytes Percent Auto 6.4 % (2-11); Neutrophils Absolute Auto 3.2 x10*3/uL (2.0-8.3); Neutrophils Percent Auto 51.8 % (45-73); Platelet Count 254 X10*3/uL (160-400); Red Cell Distribution Width 11.9 % (11.0-16.0); SCAN SMEAR FLAG 1; White Blood Count 6.2 X10*3/uL (4.8-10.8)
[2023-12-31 13:01] LABS: Estimated Average Glucose 91 mg/dL; Hemoglobin A1C 97.7195 umol/L; Hemoglobin A1c % 4.8 % (<6.0); Total Hemoglobin (HGBA1C) 3320.7599 umol/L
[2023-12-31 13:27] LABS: SLIDE REVIEW VERIFIED
[2023-12-31 13:34] LABS: Alanine Aminotransferase 15 U/L (0-31); Albumin Level 4.3 g/dL (3.5-5.0); Alkaline Phosphatase 38 U/L (39-117); Anion Gap 8 (12-20); Aspartate Amino Transferase 19 U/L (5-31); Bilirubin Total 0.6 mg/dL (0.0-1.0); Blood Urea Nitrogen 6 mg/dL (9-16); C Reactive Protein < 0.10 mg/dL (< or = 0.50); Calcium 9.6 mg/dL (8.4-10.2); Carbon Dioxide 27 mmol/L (22-29); Chloride 104 mmol/L (96-108); Cholesterol 209 mg/dL (<200); Estimated Glomerular Filt Rate > 60; Glucose Random 80 mg/dL (60-115); HDL Cholesterol 59 mg/dL (>40); Iron 139 mcg/dL (30-160); LDL Cholesterol Calculated 122 mg/dL (<100); Percent Iron Saturation 44 % (15-50); Potassium 3.9 mmol/L (3.3-5.1); Sodium 135 mmol/L (135-145); Total Iron Binding Capacity 313 mcg/dL (228-428); Total Protein 7.3 g/dL (6.5-8.0); Triglycerides 142 mg/dL (<150); Unsaturated Iron Binding 174 ug/dL
[2023-12-31 13:52] LABS: Ferritin 35 ng/mL (10-122); TSH reflex Free T4 0.89 uIU/mL (0.32-4.0); Vitamin D 25-OH Total 26.8 ng/mL (>30)
[2023-12-31 14:04] LABS: Vitamin B12 564 pg/mL (200-900)
[2023-12-31 14:13] LABS: Insulin 9 uU/mL (2-29)
[2024-01-03 15:40] LABS: Zinc 71 mcg/dL (60-130)
[2024-01-05 17:03] LABS: Vitamin B1 8 nmol/L (8-30)
[2024-01-08 15:17] LABS: Vitamin A 52 mcg/dL (38-98)
== END 2023-12-31 11:20 | disposition home or self-care (01) ==
LOC: HO.LAB 11:19
PROVIDERS: PCP Internal Medicine; Visit Provider Physician Assistant Surgical
DX: E03.9 Hypothyroidism, unspecified (principal); I95.9 Hypotension, unspecified; R53.83 Other fatigue; Z98.84 Bariatric surgery status
CPT/HCPCS: 36415; 80053; 80061; 82306; 82607; 82728; 82746; 83036; 83525; 83540; 84425; 84443; 84590; 84630; 85025; 86140

== ENCOUNTER 2024-06-06 14:39 | Outpatient (AMB) | payer OTHER, SELFPAY ==
[2024-06-06 09:29] VITALS: BMI 32.6
--- NOTE | 2024-06-06 09:29 | A.OFFVIS_ITS ---
VS Expanded 06/06/24 09:29 Height 5 ft 2 in Weight 178 lb 4 oz BMI 32.6 Body Fat % 39.1 Fat Free Mass 108.6 Visceral Fat Rating 14 Body Water % 41.8 Muscle Mass/Score 102 Basal Metabolic Rate/Score 1,434 Intake Visit Reasons: (tv) PO LSG 12/13/21 Allergies azithromycin Allergy (Severe, Verified 08/29/23 16:12) throat swelling [facility] Allergy (Severe, Uncoded 08/29/23 16:12) THROAT SWELLING HPI Comments Details: Pleasant 33-year-old female, status post sleeve gastrectomy on 12/13/2021. This is approximately 2 years 6 months postoperative. Initial weight 228 # Preop weight 207# Weight today is 178.4 with a BMI of 32.6. She has had a 15 pound weight gain since her last appointment. She attributes this to job transition and depression. She has left her old job and started her new job wherer she is comfortable and happy. Feels stable. She states that she still has constipation using colace with good effect. No longer needing miralax. Started a meal plan 3 days ago Taking celebrate mvi and torres + D Meal plan: shake Orgain, 1 scoop in 8 oz unsweetened almond milk, 2 hours another shake, 1 scoop, 2 hours burundian yogurt meal 7 forks protein and 7 forks veg, 30-40 minutes Drinking 60 oz water daily Exercise plan: started treadmill 3 days ago [facility] Medical History Scoliosis Hypothyroidism BMI 36.0-36.9,adult Cervical lymphadenopathy Obesity Transaminitis Cough Eric's disease Vitamin D deficiency Eric's disease Goiter Difficulty swallowing Tonsillitis GERD (gastroesophageal reflux disease) Migraines No known health problems Surgical History Status post laparoscopic sleeve gastrectomy History of sleeve gastrectomy Hx of tonsillectomy History of cervical cerclage History of tubal ligation History of cholecystectomy Family History Father High cholesterol Liver failure Hypertension Lung disease Mother Diabetes Hypertension Cervical cancer Hypothyroidism Sister Lupus anticoagulant disorder Maternal Grandmother CVD (cardiovascular disease) Maternal Grandfather Diabetes CVD (cardiovascular disease) Paternal Uncle Colon cancer Maternal Aunt Graves disease Social History Housing: Apartment Housing Other:: [facility] Are you a primary caregivers non medical to a significant other at home: Yes (children, mother will be there after surgery) Do you presently have visiting nurse or other home services: No Alcohol intake: never Patient Tobacco Use Status: Never used Tobacco e-Cigarette/Vaping Use: Never Used Second Hand Smoke Exposure: No service: No Current occupational status: employed Current occupational exposures/hazards: No Female Reproductive History Menstrual Age of Menarche: 12 Quality Reporting (2019) Adult ([facility] 13803/29/68) Smoking risk assessment performed?: Yes Patient Tobacco Use Status: Never used Tobacco Telehealth Telehealth Telehealth Platform: Telephone Location of provider rendering services: practice address Location of patient: address on file Patient Identification confirmed using: Name, : Yes Telehealth method: voice only Patient verbally consented to treatment: Yes Patient verbally consented to billing insurance company: Yes Patient informed of any privacy concerns related to visit: Yes Minutes spent on Phone/Video with Pt.: 15 Assessment & Plan Assessment & Plan (1) Status post laparoscopic sleeve gastrectomy: Code(s): Z98.84 - Bariatric surgery status Category: Surgical Plan: Patient will start new meal plan using Orgain protein powder which she likes very much. She previously was using zone perfect bars but they are no longer available: Based upon waking up at 06:00 and going to bed at 22:00 729 shake with 1 scoop 10-12 shake 1 scoop 1-2 yogurt Meal at 4 with 7 forks of protein and 7 forks of vegetables 6-8 shake with half scoop Discussed the importance of exercise. She has treadmill at home in the goal is to burn 300 calories daily or 2000 calories per week. We will have her follow- up in the office in a proximally 3 months. Encouraged to text weights weekly and with any questions or concerns.
--- OUTSIDE RECORDS SUMMARY | 2024-06-06 14:44 | XMS_ITS | Clinical Summary ---
Author Organization [facility] Address [address] [place] [phone] Phone Care Team Providers Care Filing Writer Name Role Phone Unavailable Primary Care Provider Unavailabl e Immunizations Immunization Administration Dates Next Due DTP 07/05/1994, 2,07/05/1990,1990,01/04/1990 Hep B, ped/adol 07/03/2003,12/29/2002,11/28/2002 Hib (PRP-T) 10/05/1993,01/04/1991,07/05/1990 IPV 07/05/1994, 2,01/04/1991,1990,01/04/1990 MMR 07/05/1994,01/04/1991 Td (adult) (MBL), 2 Lf tetan us toxoid, PF, adsorbed 11/08/2000 Social History Tobacco Use Types Packs/Day Years Used Date Smoking Tobacco: Never Assessed Comments Unknown Sex and Gender Information Value Date Recorded Sex Assigned at Not on file Legal Sex Female 3:16 PM EDT Gender Identity Not on file Sexual Orientation Not on file Plan of Treatment Health Maintenance Due Date Last Done Comments DTaP,Tdap,and Td Vaccines (6 - Tdap) 11/09/2000 11/08/2000, 07/05/1994, 09/05/1991, Additional history exists Varicella Vaccines (1 of 2 - 13+ 2-dose series) 2002 Influenza Vaccines (#1) 2023 COVID-19 Vaccine ( season) 2023 HIB Vaccines Completed 10/05/1993, 12/08, 07/05/1990 IPV Vaccines Completed 07/05/1994, 08/07, 01/04/1991, Additional history exists MMR Vaccines Completed 07/05/1994, 01/04/1991 Hepatitis B Vaccines Completed 07/03/2003, 12/29/2002, 11/28/2002 HPV Vaccines Aged Out No longer eligi ble based on patient's age to complete this topic Hepatitis A Vaccines Aged Out No long er eligible based on patient's age to complete this topic Men B Vaccine Aged Out No longer elig ible based on patient's age to complete this topic Meningococcal Vaccine Aged Out No era jane eligible based on patient's age to complete this topic Pneumococcal Vaccine Aged Out No long er eligible based on patient's age to complete this topic
== END 2024-06-06 14:51 | disposition home or self-care (01) ==
LOC: HO.HBS 14:39
PROVIDERS: PCP Internal Medicine; Visit Provider Physician Assistant Surgical
DX: E66.09 Other obesity due to excess calories (principal); E66.811 Obesity, class 1; Z68.32 Body mass index [BMI] 32.0-32.9, adult; Z98.84 Bariatric surgery status
CPT/HCPCS: 99213; G2211

== ENCOUNTER 2024-09-08 15:30 | Outpatient (AMB) | payer OTHER, SELFPAY ==
--- NOTE | 2024-09-08 09:39 | MHC.OFFVISWM ---
VS Expanded 09/08/24 09:41 Height 5 ft 2 in Weight 186 lb 2 oz BMI 34.0 Body Fat % 41.2 Fat Free Mass 109.4 Visceral Fat Rating 16 Body Water % 40.3 Muscle Mass/Score 103 Basal Metabolic Rate/Score 1,442 Intake Visit Reasons: (tv) PO LSG 12/13/21 Allergies azithromycin Allergy (Severe, Verified 08/29/23 16:12) throat swelling [facility] Allergy (Severe, Uncoded 08/29/23 16:12) THROAT SWELLING HPI Comments Details: Pleasant 33-year-old female, status post sleeve gastrectomy on 12/13/2021. This is approximately 2 years 9 months postoperative. Initial weight 228 # Preop weight 207# Weight today is 186.2 with a BMI of 34. She has had an 11.8 pound weight gain since her last appointment and a 38 pound weight gain over the last year. She attributes this to increased stress with her job and she also recently bought a house and moved She states that she has been having reflux, especially at night. She was not following the meal plan that I had given her. Taking celebrate mvi and torres + D She has changed her schedule and she is waking up at 8 am, bed at 10 pm first shake at 9-930 Orgain chocolate 1 scoop in 8 oz almond milk second shake at 10-1030 1 scoop in 8 oz almond milk noon wallisian yogurt meal at 4 pm chicken w broccoli and peppers, 8 forks of each drinking 48 oz water, no soda or juice recommended Meal plan: using Orgain protein powder which she likes very much. Based upon waking up at 06:00 and going to bed at 22:00 7-9 shake with 1 scoop 10-12 shake 1 scoop 1-2 yogurt Meal at 4 with 7 forks of protein and 7 forks of vegetables 6-8 shake with half scoop Drinking 60 oz water daily Exercise plan: treadmill 3 days per week, her machine does not track calories, only time, 1 hour stationary bike, 25 minutes, 60 calories, 3 days per week rowing machine, 30 min, 60 calories , 3 days per week. [facility] Medical History Scoliosis Hypothyroidism BMI 36.0-36.9,adult Cervical lymphadenopathy Obesity Transaminitis Cough Eric's disease Vitamin D deficiency Eric's disease Goiter Difficulty swallowing Tonsillitis GERD (gastroesophageal reflux disease) Migraines No known health problems Surgical History Status post laparoscopic sleeve gastrectomy History of sleeve gastrectomy Hx of tonsillectomy History of cervical cerclage History of tubal ligation History of cholecystectomy Family History Father High cholesterol Liver failure Hypertension Lung disease Mother Diabetes Hypertension Cervical cancer Hypothyroidism Sister Lupus anticoagulant disorder Maternal Grandmother CVD (cardiovascular disease) Maternal Grandfather Diabetes CVD (cardiovascular disease) Paternal Uncle Colon cancer Maternal Aunt Graves disease Social History Housing: Apartment Housing Other:: [facility] Are you a primary healthcare or medical to a significant other at home: Yes (children, mother will be there after surgery) Do you presently have visiting nurse or other home services: No Alcohol intake: never Patient Tobacco Use Status: Never used Tobacco e-Cigarette/Vaping Use: Never Used Second Hand Smoke Exposure: No service: No Current occupational status: employed Current occupational exposures/hazards: No Female Reproductive History Menstrual Age of Menarche: 12 Quality Reporting (2019) Adult ([facility] ) Smoking risk assessment performed?: Yes Patient Tobacco Use Status: Never used Tobacco Telehealth Telehealth Telehealth Platform: Telephone Location of provider rendering services: practice address Location of patient: address on file Patient Identification confirmed using: Name, : Yes Telehealth method: voice only Patient verbally consented to treatment: Yes Patient verbally consented to billing insurance company: Yes Patient informed of any privacy concerns related to visit: Yes Minutes spent on Phone/Video with Pt.: 15 Assessment & Plan Assessment & Plan (1) Status post laparoscopic sleeve gastrectomy: Code(s): Z98.84 - Bariatric surgery status Category: Surgical Plan: Patient has gained a proximally 38 lb over the last year. Discussed the importance of discipline, purpose fullness, consistency and time. She has not been following the recommended meal plan or communicating. She was given information regarding the right BMI fabi. discussed the importance of following the meal plan consistently, following the meal plan accurately in terms of duration for protein shakes and protein bars, measuring her food portions accurately. Her reflexes attributable to her intake. Discussed her exercise routine. Encouraged her to exercise at least 5 days a week with a goal of burning 400 calories per day. Encouraged her to do 45 minutes on the rowing machine and 45 minutes on her stationary bike at 200 calories burned each so she can achieve her goal of 400 calories burned per session. She certainly may incorporate treadmill if she wishes but given the fact that it is quite old per her report and does not track calories, using her other machines that due we will be of greater efficiency. We will have her return to the office in approximately 3 months for her 3 year follow-up appointment, check labs at that time. Additionally, encouraged to text weekly her weight is and to text with any questions
[2024-09-08 09:41] VITALS: BMI 34.0
--- OUTSIDE RECORDS SUMMARY | 2024-09-08 15:56 | XMS_ITS | Clinical Summary ---
Author Organization [facility] Address [address] [place] [id number] Phone Care Team Providers Care Backend Developer Name Role Phone Unavailable Primary Care Provider [...] of 2 - 13+ 2-dose series) 2002 COVID-19 Vaccine ( season) 2023 Influenza Vaccines (#1) 2024 HIB Vaccines Completed 10/05/1993, 12/08, 07/05/1990 IPV [...]
== END 2024-09-08 15:58 | disposition home or self-care (01) ==
LOC: HO.HBS 15:55
PROVIDERS: PCP Internal Medicine; Visit Provider Physician Assistant Surgical
DX: E66.9 Obesity, unspecified (principal); Z68.34 Body mass index [BMI] 34.0-34.9, adult; Z90.3 Acquired absence of stomach [part of]; Z98.84 Bariatric surgery status
CPT/HCPCS: 98013